=== PATIENT | female | born 1935 | race Caucasian/White ===

== ENCOUNTER → 2017-06-27 | Outpatient (CLI) | payer MEDICARE, OTHER ==
[~2017-06-27] MED LIST: ACE325 PO; CALC-734 PO; DIG25 PO; DIGO125T73 PO; FLU45SYR17 IM; FOL1 PO; FOLI-68 PO; FURO-1 PO; FURO-47 PO; HYDR-3104 PO; HYDR12.561 PO; LEV112 PO; LEVO50TA80 PO; LEVO750T44 PO; LISI-357 PO; LOR5/325 PO; LOSA-31 PO; METF-410 PO; METH-541 PO; METH2.5T43 PO; PNEU0.5D3 IM; POLY10DR22 OP; SPIR25TA78 PO; SPIR50TA30 PO; THYROID MED; VIT-7 PO; WAR1 PO; WARF1TAB63 PO; WARF2.5T4 PO; ZOST19404 SQ
[2017-06-27 12:19] LABS: LDL CHOLESTEROL 77 mg/dl
== END ==
LOC: LAB 11:24
PROVIDERS: ATTEND Internal Medicine
DX: E03.9 Hypothyroidism, unspecified (principal); R73.09 Other abnormal glucose; M06.9 Rheumatoid arthritis, unspecified; I48.91 Unspecified atrial fibrillation; Z79.899 Other long term (current) drug therapy; E11.9 Type 2 diabetes mellitus without complications
CPT/HCPCS: 36415; 80162; 82040; 82247; 82310; 82374; 82435; 82465; 82565; 82947; 83036; 83718; 84075; 84132; 84155; 84295; 84443; 84450; 84460; 84478; 84520

== ENCOUNTER → 2017-10-24 | Outpatient (CLI) | payer MEDICARE, OTHER ==
[~2017-10-24] MED LIST changes: -METF-410 PO; +METF-411 PO; +WARF1TAB15 PO; -WARF1TAB63 PO
== END ==
LOC: LAB 13:58
PROVIDERS: ATTEND Internal Medicine
DX: E03.9 Hypothyroidism, unspecified (principal); G47.62 Sleep related leg cramps; E11.9 Type 2 diabetes mellitus without complications
CPT/HCPCS: 36415; 82040; 82247; 82310; 82374; 82435; 82465; 82565; 82947; 83036; 83718; 83735; 84075; 84132; 84155; 84295; 84443; 84450; 84460; 84478; 84520

== ENCOUNTER → 2018-02-07 | Outpatient (CLI) | payer MEDICARE, OTHER ==
[~2018-02-07] MED LIST changes: +LEVO-3 PO; -SPIR25TA78 PO; +SPIR25TA80 PO
[2018-02-07 12:14] LABS: PLATELET COUNT, AUTOMATED 274 K/uL (150-450)
--- NOTE | 2018-02-07 14:49 | RADIOLOGY IMAGING REPORT ---
[place] [facility] [place] Kinsey Hwang : 1935 MR: [id number] V: [id number] EXAM DATE: ORDERING PHYSICIAN: KACIE MENDES TECHNOLOGIST: Location: [facility] [place] Patient: Kinsey Hwang : 1935 Visit/Account:[id number] Date of Sevice: 02/07/2018 FOOT 3 VIEW LEFT COMPARISONS: None. ADDITIONAL PERTINENT HISTORY: Foot wound FINDINGS: Osseous structures: Subchondral sclerosis and osteophyte formation at the metatarsophalangeal joints. 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 Moderately severe hallux valgus deformity. No bony fractures or lytic changes noted. Joint spaces: Joint space narrowing involving the MTP joints as well as the interphalangeal joint of the left great toe. Surrounding soft tissues: Negative. IMPRESSION: 1. 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 2. 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 3. Moderate hallux valgus deformity. 4. No lytic changes to suggest osteomyelitis at this time. Report Dictated By: Eliot Solorio MD at 02/07/2018 2:42 PM Report E-Signed By: Eliot Solorio MD at 02/07/2018 2:44 PM WSN:[email or web address]
== END ==
LOC: LAB 11:50
PROVIDERS: ATTEND Internal Medicine
DX: M19.072 Primary osteoarthritis, left ankle and foot (principal); Z89.422 Acquired absence of other left toe(s)
CPT/HCPCS: 36415; 85025; 85651; 86140; 87070

== ENCOUNTER → 2018-03-01 | Outpatient (REF) | payer MEDICARE ==
[~2018-03-01] MED LIST changes: +AMOX-559 PO; +LEVO500T83 PO; -METF-411 PO; +METF-450 PO; +METR-160 PO
== END ==
LOC: ZZSENDIN 16:31
PROVIDERS: ATTEND Internal Medicine
DX: S91.302D Unspecified open wound, left foot, subsequent encounter (principal); E03.9 Hypothyroidism, unspecified; E11.9 Type 2 diabetes mellitus without complications; Z79.899 Other long term (current) drug therapy
CPT/HCPCS: 80162; 82040; 82247; 82310; 82374; 82435; 82565; 82947; 83036; 84075; 84132; 84155; 84295; 84443; 84450; 84460; 84520

== ENCOUNTER → 2018-04-02 | Outpatient (CLI) | payer MEDICARE, OTHER ==
[~2018-04-02] MED LIST changes: +FLU180SY11 IM; +LEVO88TA43 PO
== END ==
LOC: LAB 14:33
PROVIDERS: ATTEND Internal Medicine
DX: S91.302D Unspecified open wound, left foot, subsequent encounter (principal)
CPT/HCPCS: 87070; 87073

== ENCOUNTER 2018-06-07 19:37 | Inpatient (IN) | payer MEDICARE, OTHER ==
[~2018-06-07] VITALS: Ht 152.4 cm; Wt 55.8 kg
[~2018-06-07 19:37] MED LIST changes: +CLIN300C99 PO; -METR-160 PO; +METR500T54 PO
[2018-06-07 19:45] VITALS: BP 108/50
[2018-06-07] MEDS ORDERED: INSULIN HUM LISPRO 100 UN/ML 3 ML VIAL SUBQ PRN (19:50)
[2018-06-07 20:29] LABS: PLATELET COUNT, AUTOMATED 165 K/uL (150-450)
[2018-06-07] MEDS: NS(*) 0.9% 1000 ML BAG 1,000 ML IV PRN (20:42)
[2018-06-07] MEDS: IMIPENEM/CILASTA(*) 500MG VIAL 500 MG in NS(*) 0.9% 100 ML BAG 100 ML IVPB SCH (20:44)
[2018-06-07] MEDS: guaiFENesin 600 MG TABCR PO SCH (20:48)
[2018-06-07] MEDS ORDERED: ENOXAPARIN 40 MG/0.4ML SYR SC SCH (21:00)
--- NOTE | 2018-06-07 22:12 | History & Physical ---
History of Present Illness Chief Complaint Chest congestion, increased work of breathing. History of Present Illness The patient is an 82 year old female who was initially evaluated on the medical floor with infection of a chronic foot wound. She was started on wound care and IV Vancomycin and transferred to [facility] for ongoing antibiotics and rehabilitation. The patient developed some chest congestion but did not have an elevated WBC or increased O2 requirements initially. She was placed on flutter therapy and Mucinex. She then developed fever and increase work of breathing. A CXR showed LLL pneumonia with pleural effusion. She was transferred back to the medical floor for close monitoring and treatment of acute hospital acquired pneumonia. The patient has a living will, but it does not address an acute illness, only a terminal illness as determined by 2 physicians. Per the patient's verbal report, she does not want to be resuscitated if she should have cardiac arrest and does not want to be intubated. Her daughter is her POA. History Problems: (1) Acquired hypothyroidism Status: Chronic (2) Nocturnal leg cramps Status: Chronic (3) Unintentional weight loss Status: Chronic (4) Type 2 diabetes mellitus without complications Status: Chronic (5) Atrial fibrillation, controlled Status: Chronic (6) Rheumatoid arthritis Status: Chronic (7) Neuropathy, idiopathic Status: Chronic (8) Primary pulmonary hypertension Status: Chronic (9) Mitral valve replaced Status: Chronic (10) FPC (current) use of anticoagulants Status: Acute (11) Open wound of left foot excluding toes without complication Status: Chronic Home Meds Active Scripts Warfarin Sodium (WARFARIN SODIUM) 1 Mg Tablet, 1.5 MG PO QDAY, #45 TAB 11 Refills Prov:KACIE MENDES MD 05/01/18 Spironolactone (SPIRONOLACTONE) 25 Mg Tablet, 1 TAB PO QDAY, #90 TAB 3 Refills Prov:KACIE MENDES MD 05/01/18 Levothyroxine Sodium (SYNTHROID) 88 Mcg Tablet, 1 TAB PO QDAY, #45 TAB 3 Refills Prov:KACIE MENDES MD 04/04/18 Methotrexate Sodium (METHOTREXATE) 2.5 Mg Tablet, 3 TAB PO QWEEK, #12 TAB 6 Refills Prov:KACIE MENDES MD 01/28/18 Furosemide (FUROSEMIDE) 40 Mg Tablet, 1 TAB PO QDAY, #90 TAB 4 Refills Prov:KACIE MENDES MD 12/04/17 Digoxin (DIGOXIN) 125 Mcg Tablet, 1 TAB PO DAILY, #90 TAB 3 Refills Prov:KACIE MENDES MD 08/07/17 Metformin Hcl (METFORMIN HCL) 500 Mg Tablet, 1 TAB PO QDAY, #90 TAB 3 Refills Prov:KACIE MENDES MD 08/07/17 Folic Acid (FOLIC ACID) 1 Mg Tablet, 1 MG PO QDAY, #90 TAB 3 Refills Prov:KACIE MENDES MD 08/07/17 Reported Medications Vit A,C & E/Lutein/Minerals (OCUVITE TABLET) 1 Each Tablet, 1 TAB PO BID 02/27/14 Calcium Carbonate/Vitamin D3 (CALCIUM 500 + D TABLET) 1 Each Tablet, 1 TAB PO BID 02/27/14 Allergies: Coded Allergies: Penicillins (Verified Allergy, Severe, hives, 12/28/16) Sulfa (Sulfonamide Antibiotics) (Verified Allergy, Intermediate, rash, 12/28/16) latex (Verified Allergy, Mild, RASH, 12/28/16) strawberry (Unverified Allergy, Unknown, 05/30/18) Patient History: FH: anemia FATHER, , Age:90 FH: diabetes mellitus MOTHER, , Age:91 BROTHER OR SISTER, Age:83 FH: rheumatoid arthritis FATHER, , Age:90 BROTHER OR SISTER (Sister), Age:90 Hx Smoking: No Smoking Status: Never Smoker Exposure to Second Hand Smoke?: No Caffeine Intake: Tea Caffeine/Cups Per Day: 2 Hx Alcohol Use: No Hx Substance Use Disorder: No Social Drug Use: Never Review of Systems All Systems Reviewed/Normal: Yes, Except as Noted Constitutional: Fever, Weight Loss Neurological: Weakness Cardiovascular: No Chest Pain Respiratory: No Shortness of Breath Gastrointestinal: No Nausea, No Vomiting; Other (Decreased appetite.) Musculoskeletal: Pain Exam Vital Signs Vital Signs Date Time Temp Pulse Resp B/P (MAP) Pulse Ox O2 Delivery O2 Flow Rate FiO2 06/07/18 21:45 91 06/07/18 20:58 77 34 Room Air 06/07/18 19:45 98.4 108/50 (69) General Appearance: Alert, Awake, Other (Mild increased work of breathing noted) Neuro: Other (Mildly confused.) Cardiovascular: Regular Rate and Rhythm Respiratory: Other (Rhonchi entire L lung field with scattered wheezes. Rhonchi R lung base with scattered wheezes in right lung.) GI: Abd Soft and Non-Tender Extremities: Other (See below.) Integumentary: Other (Left plantar foot 2nd MTP Lesion/Ulceration, full thickness reported per PT wound care. Currently bandaged and unable to be visualized.) Psych: Appropriate Mood & Affect Medical Decision Making Data Points Result Diagram: 06/07/18201106/07/182011 EKG / Imaging Imaging FACILITY: [facility] PATIENT NAME: Kinsey Hwang : 1935 MR: [id number] V: [id number] EXAM DATE: ORDERING PHYSICIAN: NIKOLAI LOPES TECHNOLOGIST: [place] [facility] [place] Patient: Kinsey Hwang : 1935 Visit/Account:[id number] Date of Sevice: 06/07/2018 Study: CHEST SINGLE AP Indication: Increased work of breathing and respiratory rate Comparison study: 05/29/2018 Findings: Single AP portable view the chest demonstrates presence of a PICC line entering from left upper extremity. The tip of the catheter overlies the right atrium. The patient is status post mitral valve replacement. There is a small left pleural effusion. The cardiac silhouette appears to be enlarged, however this is an AP projection. There is a probable left base infiltrate. There is no evidence of pneumothorax. The right hemithorax is unremarkable. IMPRESSION: Small left pleural effusion. Probable cardiomegaly. Probable left base infiltrate. Report Dictated By: Kevin Mclean at 06/07/2018 6:24 PM Report E-Signed By: Kevin Mclean at 06/07/2018 6:26 PM WSN:[id number] Pre-Admit Course Medical Record Review: Yes Assessment and Plan Problems: (1) Pneumonia Status: Acute Assessment & Plan: The patient developed increased work of breathing. CXR shows L basilar infiltrate with pleural effusion. Will transfer to the medical floor for closer monitoring. The patient's daughter has been notified of the change in status. Need to discuss code status with the patient's daughter since the Living Will does not adequately address her current situation. The patient's daughter is her POA. The patient is currently mildly confused. 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 Dr. Orantes has been following her as an outpatient. Purulent discharge was noted on initial evaluation, and a wound culture is growing MRSA. A plain film was negative for osteomyelitis. Physical therapy is providing wound care. She was initially started on vancomycin and levofloxacin, but is now just on vancomycin. Will continue for total 14 days therapy. She received her first dose of Vanco on 05/30. She will need to continue Vanco THROUGH June 12, 2018. (3) ARF (acute renal failure) Status: Acute Assessment & Plan: She presented with weakness and falls. Her creatinine was elevated to 2.0 from her baseline of 1.2-1.5. Secondary to dehydration that was exacerbated by furosemide and spironolactone. Her creatinine has improved to 1.1. Will continue to hold her diuretics. (4) Weakness Status: Acute Assessment & Plan: She has had more falls at home. She has lost about 5 pounds in the last 12 days prior to admission. Prealbumin low at 16.7. OT/PT are following the patient. Will continue on SHANNAN to ensure adequate calorie intake. Once recovered from her acute illness, she will likely need to be transferred ba to [facility] for ongoing acute rehab. (5) Hematoma Status: Acute Assessment & Plan: She does have a large hematoma on the left outer thigh. Her Hgb dropped after admission. She was transfused and her Hgb improved to 9.1 but has gradually decreased down to 8.1. She is on Coumadin with a subtherapeutic INR so is getting full dose Lovenox as well. There is no evidence of active bleeding but her most recent CBC shows 3% blasts which is new. VS have been stable. Will repeat CBC in the am. (6) Atrial fibrillation, controlled Status: Chronic Assessment & Plan: She was on chronic treatment with digoxin and warfarin. The digoxin was held secondary to bradycardia (HR in the 30's while sleeping) and concerns that it might be contributing to her falls. Her rate is controlled off the digoxin and she is no longer having the bradycardia. Will not restart. Her INR was elevated at admission. Her warfarin was placed on hold. She did not receive reversal agents. INR then fell below target. She is now on Lovenox and back on Coumadin. (7) Mitral valve replaced Status: Chronic Assessment & Plan: INR goal of 2.5-3.5. She is currently subtherapeutic, so will continue Lovenox at full dosing until her INR is 2.5 or greater. Warfarin was initially started at a lower dose because of concerns of interactions with Levofloxacin then resumed regular dosing when levofloxacin discontinued. She did present with a supratherapeutic INR so will need to watch her INR closely and adjust her dose as needed. She has also gradually dropped her hemoglobin so will need to watch closely for signs of bleeding. (8) Type 2 diabetes mellitus without complications Status: Chronic Assessment & Plan: Metformin held secondary to ARF and normal BS. She is currently on diet as tolerated secondary to the weight loss. AC and HS glucose. So far, she has not required insulin dosing per SS due to low sugars. Will continue to hold metformin. (9) Rheumatoid arthritis Status: Chronic Assessment & Plan: She is chronically on methotrexate, which we will hold for now due to active infection. (10) Acquired hypothyroidism Status: Chronic Assessment & Plan: TSH was low at 0.03 on 03/01/18. TSH is 0.88 now. Continue chronic replacement for now. (11) Neuropathy, idiopathic Status: Chronic Assessment & Plan: Chronic. Time Spent on Plan of Care: < 30 min Venous Thromboembolism Antithrombotics Is Pt On Any Antithrombotics?: Yes Exam Sepsis Risk: No Definite Risk NIKOLAI LOPES MD Jun 07, 2018 22:12
[2018-06-07 22:50] VITALS: BP 101/60
[2018-06-08] VITALS (9 sets, daily range): BP systolic 102–123; BP diastolic 50–92; Ht 152.4 cm; Wt 55.8 kg
[2018-06-08] MEDS: IMIPENEM/CILASTA(*) 500MG VIAL 500 MG in NS(*) 0.9% 100 ML BAG 100 ML IVPB SCH ×4 (02:02→20:31)
[2018-06-08] MEDS: LEVOTHYROXINE SOD 0.088 MG TAB PO SCH (06:16)
[2018-06-08 06:46] LABS: PLATELET COUNT, AUTOMATED 90 K/uL (150-450)
[2018-06-08 07:04] LABS: INR 2.69
[2018-06-08] MEDS ORDERED: ALTEPLASE RECOMB 2 MG VIAL IVP ONE (07:40)
[2018-06-08] MEDS: VANCOMYCIN HCL(*) 0.750 GM ADD 0.75 GM in NS(*) 0.9% 250 ML ADDVAN BAG 250 ML IVPB SCH (08:06)
[2018-06-08] MEDS: NS(*) 0.9% 1000 ML BAG 1,000 ML IV PRN ×2 (08:06→21:19)
[2018-06-08] MEDS: guaiFENesin 600 MG TABCR PO SCH ×2 (08:10→20:30)
[2018-06-08] MEDS: FOLIC ACID 1 MG TAB PO SCH (08:10)
[2018-06-08] MEDS: BETA-CAROTENE(A) & E/MIN TAB PO SCH (08:11)
--- NOTE | 2018-06-08 10:17 | Hospitalist Progress Note ---
Subjective Progress Notes Subjective She reports some slight improvements with less cough and dyspnea. Physical Exam Vital Signs Date Time Temp Pulse Resp B/P (MAP) Pulse Ox O2 Delivery O2 Flow Rate FiO2 06/08/18 08:10 98.7 24 98 Room Air 06/08/18 03:20 89 Intake and Output0 06/08/18 07:00 Intake Total 300 ml Balance 300 ml Intake Oral 300 ml # Bowel Movements 1 General Appearance: Alert, Awake Cardiovascular: Other (Fairly regular with valve click) Respiratory: Other (scattered rhonchi with rales at bases left>right) Chest: No Tenderness GI: Soft and Non-Tender Musculoskeletal: Other (dramatic rheumatoid changes in hands/less in feet) Extremities: Warm, Perfused Integumentary: Generalized Fragile Skin, Other (foot wound dressed with minimal drainage/no erythema noted) Result Diagram: 06/08/1861206/08/18612 Assessment and Plan Problems: (1) Pneumonia Status: Acute Assessment & Plan: The patient developed increased work of breathing and CXR showed left basilar infiltrate with pleural effusion. She is now on IV Primaxin for her pneumonia in addition to the vancomycin for her foot. She appears to have improved clinically. No changes at this time. 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 Dr. Orantes has been following her as an outpatient. Purulent discharge was noted on initial evaluation, and a wound culture has grown MRSA. A plain film was negative for osteomyelitis. Physical therapy is providing wound care. She was initially started on vancomycin and levofloxacin, but is now just on vancomycin. Will continue for total 14 days therapy. She received her first dose of vancomycin on 05/30. She will need to continue THROUGH June 12, 2018. (3) ARF (acute renal failure) Status: Acute Assessment & Plan: She presented with weakness and falls. Her creatinine was elevated to 2.0 from her baseline of 1.2-1.5. Secondary to dehydration that was exacerbated by furosemide and spironolactone. Her creatinine has improved to 1 .0. Will continue to hold her diuretics. (4) Weakness Status: Acute Assessment & Plan: She has had more falls at home. She had lost about 5 pounds in the last 12 days prior to admission. Prealbumin low at 16.7. OT/PT are following the patient. Will continue on SHANNAN to ensure adequate calorie intake. Once recovered from her acute illness, she will likely need to be transferred back to [facility] for ongoing acute rehab. (5) Hematoma Status: Acute Assessment & Plan: She did have a large hematoma on the left outer thigh. Her Hgb/Hct dropped after admission. She was transfused and her Hgb improved to 9.1 but has gradually decreased down once again to 7.8. She is on anticoagulation therapy with Coumadin/Lovenox, but no evidence of overt bleeding. She does have chronic RA. One of her most recent CBC showed 3% blasts which is new. Will check iron studies and occult blood. Will transfuse 2 units PRBC as she has fairly significant cardiac disease. Watch counts closely. (6) Atrial fibrillation, controlled Status: Chronic Assessment & Plan: She was on chronic treatment with digoxin and warfarin. The digoxin was held secondary to bradycardia (HR in the 30's while sleeping) and concerns that it might be contributing to her falls. Her rate is controlled off the digoxin and she is no longer having the bradycardia. Will not restart. Her INR was elevated at admission. Her warfarin was placed on hold. She did not receive reversal agents. INR then fell below target. She was on Lovenox and along with Coumadin until INR was therapeutic - now off Lovenox. (7) Mitral valve replaced Status: Chronic Assessment & Plan: INR goal of 2.5-3.5. She is now therapeutic, so will discontinue Lovenox. Warfarin was initially started at a lower dose because of concerns of interactions with Levofloxacin then resumed regular dosing when levofloxacin discontinued. She did present with a supra-therapeutic INR so will need to watch her INR closely and adjust her dose as needed. She has also gradually dropped her hemoglobin so will need to watch closely for signs of bleeding. (8) Type 2 diabetes mellitus without complications Status: Chronic Assessment & Plan: Metformin held secondary to ARF and normal BS. She is currently on diet as tolerated secondary to the weight loss. AC and HS glucose. So far, she has not required insulin dosing per sliding scale. Will continue to hold metformin. (9) Rheumatoid arthritis Status: Chronic Assessment & Plan: She is chronically on methotrexate, which we will hold for now due to active infection. (10) Acquired hypothyroidism Status: Chronic Assessment & Plan: TSH was low at 0.03 on 03/01/18. TSH is 0.88 now. Continue chronic replacement for now. (11) Neuropathy, idiopathic Status: Chronic Assessment & Plan: Chronic. Exam Sepsis Risk: No Definite Risk ERVIN LOPES MD Jun 08, 2018 10:17
[2018-06-08] MEDS ORDERED: NS(*) 0.9% 250 ML BAG 250 ML ONE (11:54)
[2018-06-08] MEDS: WARFARIN SOD 2.5 MG TAB PO SCH (12:17)
[2018-06-08] MEDS: CALCIUM CARBONATE/VITAMIN D3 PO SCH ×2 (12:17→16:53)
[2018-06-08] MEDS: ACETAMINOPHEN 325 MG TAB PO PRN (12:26)
[2018-06-08] MEDS ORDERED: clonazePAM 0.5 MG TAB PO PRN (13:15)
[2018-06-08] MEDS ORDERED: PROMETHAZINE 25 MG/ML 1 ML AMP IVP PRN (13:15)
--- NOTE | 2018-06-08 15:31 | Medical Nutrition Therapy ---
Nutrition Anthropometrics Height (Inches): 60.00 Height (Calculated Centimeters: 152.371560 Weight (Pounds): 115 Weight (Calculated Kilograms): 52.220 BMI: 22.5 Jackson Nutrition Score: Probably Inadequate Jackson Nutrition Risk Score: 16 Dietary Referral Nutrition Risk Factors: Unplanned Loss >10lbs Nutrition Risk Comment: States weighed 118# before this hospitalization Physical Findings Physical Appearance: WNR Skin Appearance Skin Appearance: Edema Edema Location Modifier: Left Edema Location: Lower Extremity Type of Edema: Degree of Edema: Gastrointestinal Symptoms GI Symtoms: Tube Present: Bowel Sounds: Recent Bowel Pattern: Stool Characteristics: Nutrition/Food History Decreased Appetite Nutritional Diagnosis Nutritional Risk Acuity 1: Acute/ES Renal Nutritional Risk Acuity 2: Abcess/Non-Healing Wound Nutritional Risk Acuity 3: Fair Appetite Past Medical History: T2DM, RA, CHF, Neuropathy Nutritional Acuity: 2-Moderate Nutrition Diagnosis: Increased Nutrient Needs Nutrition Etiology: Physiological Causes Nutrition Problem/Etiology/Sym: Increased Nutrient Needs (Protein) related to Increased demand for nutrient, e.g., wound healing AEB low albumin status indicating increased stress and increased metabolic needs. Energy Requirement: 1550 (Summers-St Jeor: Actual BW X 1.7) Protein Requirement: 63 (Actual BW Kg X 1.2) Fluid Requirement: 1550 Diet Type: Diet as Tolerated SHANNAN/REG Nutrition Intervention: Cont diet as ordered, Check glucose Drug: Warfarin Do Not Serve Any of the Follow: Broccoli, Brussel Sprouts, Spinach, Rule Lettuce, Cranberry Juice Diet Comment To RSA: OFFER NUTITIONAL SUPPLEMENTS AND ADD PROTEIN POWDER TO APPROPRIATE FOODS Nutrition Monitoring & Eval Nutrition Goals: Eat 75-100% Meal RD Patient Assessment Time: [address] Assessment Type: RD Assessment Patient Nutrition Acuity: 2-Moderate Follow Up Date: Jun 10, 2018 Nutritional Comment: 06/08/18 Pt transferred from [facility] to [facility] for pneumonia with pleural effusion. Within normal wt range with BMI of 22.5. Low H/H, Alb 2.5, Glu 140, Fe 19, Low Na, High BUN. Pt also has incrased protein needs r/t non-healing wound with low alb. Will offer nutr supplment and put protein powder in appropriate foods. Receiving SHANNAN with consumption of bites - 50% of meals. Will follow labs, intake, etc. -ISAIAH BECK Jun 08, 2018 15:31
[2018-06-09] MEDS: ALBUTEROL 2.5 MG/3 ML NEB NEB PRN (00:46)
[2018-06-09] MEDS: IMIPENEM/CILASTA(*) 500MG VIAL 500 MG in NS(*) 0.9% 100 ML BAG 100 ML IVPB SCH ×4 (02:28→20:19)
[2018-06-09 03:05] VITALS: BP 122/73
[2018-06-09] MEDS: LEVOTHYROXINE SOD 0.088 MG TAB PO SCH (05:32)
[2018-06-09 06:02] LABS: PLATELET COUNT, AUTOMATED 161 K/uL (150-450)
[2018-06-09 06:04] LABS: INR 3.03
[2018-06-09] MEDS: VANCOMYCIN HCL(*) 0.750 GM ADD 0.75 GM in NS(*) 0.9% 250 ML ADDVAN BAG 250 ML IVPB SCH (06:21)
[2018-06-09 09:16] VITALS: BP 114/56
[2018-06-09] MEDS: FOLIC ACID 1 MG TAB PO SCH (09:21)
[2018-06-09] MEDS: BETA-CAROTENE(A) & E/MIN TAB PO SCH (09:21)
[2018-06-09] MEDS: guaiFENesin 600 MG TABCR PO SCH ×2 (09:21→20:18)
[2018-06-09] MEDS: ACETAMINOPHEN 325 MG TAB PO PRN (09:24)
--- NOTE | 2018-06-09 09:29 | Hospitalist Progress Note ---
Subjective Progress Notes Subjective This patient was readmitted for extended care for pneumonia. She had no acute events overnight. Patient Complains of: Cardiovascular: No: Chest Pain Respiratory: No: Shortness of Breath Physical Exam Vital Signs Date Time Temp Pulse Resp B/P (MAP) Pulse Ox O2 Delivery O2 Flow Rate FiO2 06/09/18 09:16 98.3 83 24 114/56 (75) 93 Room Air Intake and Output 06/09/18 06:59 Intake Total 3660 ml Balance 3660 ml Intake Oral 1110 ml IV Total 1550 ml Blood Product 1000 ml # Voids 7 # Bowel Movements 5 # Emeses 1 Cardiovascular: Regular Rate and Rhythm Respiratory: Clear to Auscultation Result Diagram: 06/09/1853006/09/18530 Assessment and Plan Problems: (1) Pneumonia Status: Acute Assessment & Plan: She did have increased congestion and shortness of breath. Her x-ray suggested a left sided infiltrate. She was started on empiric treatment with Primaxin. Cultures have been negative. 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 Dr. Orantes has been following her as an outpatient. Purulent discharge was noted on initial evaluation, and a wound culture has grown MRSA. A plain film was negative for osteomyelitis. Physical therapy is providing wound care. She was initially started on vancomycin and levofloxacin, but is now just on vancomycin. Will continue for total 14 days therapy. She received her first dose of vancomycin on 05/30. She will need to continue THROUGH June 12, 2018. (3) ARF (acute renal failure) Status: Acute Assessment & Plan: She presented with weakness and falls. Her creatinine was elevated to 2.0 from her baseline of 1.2-1.5. Secondary to dehydration that was exacerbated by furosemide and spironolactone. Her creatinine has improved to 1.0. Her diuretics remain on hold. (4) Weakness Status: Acute Assessment & Plan: She has had more falls at home. She had lost about 5 pounds in the last 12 days prior to admission. Prealbumin low at 16.7. OT/PT are following the patient. Will continue on SHANNAN to ensure adequate calorie intake. Once recovered from her acute illness, she will likely need to be transferred back to [facility] for ongoing acute rehab. (5) Hematoma Status: Acute Assessment & Plan: She did have a large hematoma on the left outer thigh. Her Hgb/Hct dropped after admission. She was transfused and her Hgb improved to 9.1 but has gradually decreased down once again to 7.8. She is on anticoagulation therapy with Coumadin/Lovenox, but no evidence of overt bleeding. She does have chronic RA. One of her most recent CBC showed 3% blasts which is new. (6) Atrial fibrillation, controlled Status: Chronic Assessment & Plan: She was on chronic treatment with digoxin and warfarin. The digoxin was held secondary to bradycardia (HR in the 30's while sleeping) and concerns that it might be contributing to her falls. Her rate is controlled off the digoxin and she is no longer having the bradycardia. Will not restart. Her INR was elevated at admission. Her warfarin was placed on hold. She did not receive reversal agents. INR then fell below target. She was on Lovenox and along with Coumadin until INR was therapeutic - now off Lovenox. (7) Mitral valve replaced Status: Chronic Assessment & Plan: INR goal of 2.5-3.5. She is now therapeutic, so will discontinue Lovenox. Warfarin was initially started at a lower dose because of concerns of interactions with Levofloxacin then resumed regular dosing when levofloxacin discontinued. She did present with a supra-therapeutic INR so will need to watch her INR closely and adjust her dose as needed. She has also gradually dropped her hemoglobin so will need to watch closely for signs of bleeding. (8) Type 2 diabetes mellitus without complications Status: Chronic Assessment & Plan: Metformin held secondary to ARF and normal BS. She is currently on diet as tolerated secondary to the weight loss. AC and HS glucose. So far, she has not required insulin dosing per sliding scale. Will continue to hold metformin. (9) Rheumatoid arthritis Status: Chronic Assessment & Plan: She is chronically on methotrexate, which we will hold for now due to active infection. (10) Acquired hypothyroidism Status: Chronic Assessment & Plan: TSH was low at 0.03 on 03/01/18. TSH is 0.88 now. Continue chronic replacement for now. (11) Neuropathy, idiopathic Status: Chronic Assessment & Plan: Chronic. (12) Anemia Assessment & Plan: She did receive 2 units of red cells yesterday. Exam Sepsis Risk: No Definite Risk Problem Qualifiers (1) Pneumonia: Pneumonia type: due to unspecified organism HUBERT,AURORA DO Jun 09, 2018 09:29
[2018-06-09] MEDS: BENZOCAINE/MENTHOL 1 EACH LOZG PO PRN ×3 (10:54→20:18)
[2018-06-09] MEDS: CALCIUM CARBONATE/VITAMIN D3 PO SCH ×2 (12:20→17:14)
[2018-06-09] MEDS: WARFARIN SOD 2.5 MG TAB PO SCH (12:21)
--- NOTE | 2018-06-09 13:05 | Antimicrobial Stewardship ---
Antimicrobial Stewardship Empiricly appropriate: Yes Comment Patient continues on Vancomycin 750 mg IV q24h for MRSA wound on foot. Primaxin 500 mg IV q6h added on 06/07/18 for pneumonia. Approriate Cultures done: Yes (No growth to date on blood cultures drawn 06/07/18. Wound had previously grown MRSA.) Renal/Hepatic dosing: Yes Serum concentration checked: Yes Comment Vancomycin Troughs have been consistently around 15-16 for the last few days. The next TR is due tomorrow at 0600. Reviewed for Drug Interaction: Yes Monitored for Toxicities: Yes Clinically stable/improving: Yes IV to PO Opportunity: No Determine cumulative duration: 7 days for pneumonia and 14 total days for MRSA wound infection DONNA SHEN Jun 09, 2018 13:05
[2018-06-09 14:29] VITALS: BP 131/86
--- NOTE | 2018-06-09 18:44 | RADIOLOGY IMAGING REPORT ---
FACILITY: [facility] [place] PATIENT NAME: Kinsey Hwang : 1935 MR: [id number] V: [id number] EXAM DATE: ORDERING PHYSICIAN: AURORA GASPAR TECHNOLOGIST: Location: [facility] [place] Patient: Kinsey Hwang : 1935 Visit/Account:[id number] Date of Sevice: 06/09/2018 KUB SINGLE VIEW ABDOMEN HISTORY: Distended, firm abdomen COMPARISON: None FINDINGS: Lower chest: Not covered Abdomen: No free intraperitoneal air. Nonobstructive bowel gas pattern. There are no abnormal calcif ications. Bony structures are unremarkable. IMPRESSION: 1. Nonobstructive bowel gas pattern. Report Dictated By: Justo Joyce MD at 06/09/2018 6:39 PM Report E-Signed By: Justo Joyce MD at 06/09/2018 6:41 PM WSN:[id number]
[2018-06-09 19:42] VITALS: BP 125/74
[2018-06-10] MEDS: ALBUTEROL 2.5 MG/3 ML NEB NEB PRN (01:27)
[2018-06-10] MEDS: IMIPENEM/CILASTA(*) 500MG VIAL 500 MG in NS(*) 0.9% 100 ML BAG 100 ML IVPB SCH ×4 (01:31→20:51)
[2018-06-10] MEDS ORDERED: NS(*) 0.9% 250 ML BAG 250 ML ONE (01:31)
[2018-06-10] MEDS: BENZOCAINE/MENTHOL 1 EACH LOZG PO PRN (01:35)
[2018-06-10 01:36] VITALS: BP 148/83
[2018-06-10] MEDS: LEVOTHYROXINE SOD 0.088 MG TAB PO SCH (06:05)
[2018-06-10 06:19] LABS: INR 4.49
[2018-06-10] MEDS: VANCOMYCIN HCL(*) 0.750 GM ADD 0.75 GM in NS(*) 0.9% 250 ML ADDVAN BAG 250 ML IVPB SCH (07:14)
[2018-06-10 08:02] VITALS: BP 116/74
[2018-06-10] MEDS: guaiFENesin 600 MG TABCR PO SCH ×2 (08:48→20:51)
[2018-06-10] MEDS: BETA-CAROTENE(A) & E/MIN TAB PO SCH (08:49)
[2018-06-10] MEDS: FOLIC ACID 1 MG TAB PO SCH (08:49)
--- NOTE | 2018-06-10 09:50 | RADIOLOGY IMAGING REPORT ---
FACILITY: [facility] PATIENT NAME: Kinsey Hwang : 1935 MR: [id number] V: [id number] EXAM DATE: ORDERING PHYSICIAN: NIKOLAI LOPES TECHNOLOGIST: Location: [facility] Patient: Kinsey Hwang : 1935 Visit/Account:[id number] Date of Sevice: 06/10/2018 CHEST SINGLE AP HISTORY: pneumonia COMPARISON: 06/07/2018 FINDINGS: Cardiomediastinal contours: Enlarged but unchanged. Median sternotomy with valve replacement. Lungs and pleura: Decreasing distention the pulmonary vascularity. Stable left basilar pleural-parenc hymal opacities. No pneumothorax. Bones/soft tissues: Left arm PICC with its tip at the distal SVC. Other findings: None significant IMPRESSION: 1. Cardiomegaly with decreasing distention the pulmonary vascularity. 2. Stable left basilar pleural-parenchymal opacities which may be pleural fluid with adjacent infiltr ate or atelectasis. Recommend continued radiographic surveillance to resolution. Report Dictated By: Justo Joyce MD at 06/10/2018 9:42 AM Report E-Signed By: Justo Joyce MD at 06/10/2018 9:46 AM WSN:[email or web address]
--- NOTE | 2018-06-10 10:34 | Hospitalist Progress Note ---
Subjective Progress Notes Subjective Denied new complaints. Denied feeling short of breath. Physical Exam Vital Signs Date Time Temp Pulse Resp B/P (MAP) Pulse Ox O2 Delivery O2 Flow Rate FiO2 06/10/18 08:02 98.6 85 18 116/74 (88) 89 Room Air Intake and Output 06/10/18 06:59 Intake Total 2185 ml Balance 2185 ml Intake Oral 660 ml IV Total 1525 ml # Voids 6 # Bowel Movements 4 # Emeses 1 General Appearance: Alert, Awake, No Acute Distress, Afebrile Neuro: No Gross deficits Cardiovascular: Regular Rate and Rhythm (With occasional ectopy.) Respiratory: No Respiratory Distress, Other (Scattered rhonchi. L>R) GI: Soft and Non-Tender Extremities: Warm, Perfused Integumentary: Other (R foot bandaged.) Psych: Alert & Oriented X3, Appropriate Mood & Affect Result Diagram: 06/09/1853006/09/18530 Imaging FACILITY: [facility] PATIENT NAME: Kinsey Hwang : 1935 MR: [id number] V: [id number] EXAM DATE: ORDERING PHYSICIAN: NIKOLAI LOPES TECHNOLOGIST: Location: [facility] - [place] Patient: Kinsey Hwang : 1935 Visit/Account:[id number] Date of Sevice: 06/10/2018 CHEST SINGLE AP HISTORY: pneumonia COMPARISON: 06/07/2018 FINDINGS: Cardiomediastinal contours: Enlarged but unchanged. Median sternotomy with valve replacement. Lungs and pleura: Decreasing distention the pulmonary vascularity. Stable left basilar pleural-parenchymal opacities. No pneumothorax. Bones/soft tissues: Left arm PICC with its tip at the distal SVC. Other findings: None significant IMPRESSION: 1. Cardiomegaly with decreasing distention the pulmonary vascularity. 2. Stable left basilar pleural-parenchymal opacities which may be pleural fluid with adjacent infiltrate or atelectasis. Recommend continued radiographic surveillance to resolution. Report Dictated By: Justo Joyce MD at 06/10/2018 9:42 AM Report E-Signed By: Justo Joyce MD at 06/10/2018 9:46 AM WSN:[email or web address] Assessment and Plan Problems: (1) Pneumonia Status: Acute Assessment & Plan: She did have increased congestion and shortness of breath. Her x-ray suggested a left sided infiltrate with associated pleural effusion. She was started on empiric treatment with Primaxin. Cultures have been negative. Repeat CXR today is essentially unchanged. Clinically she is improved. 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 Dr. Orantes has been following her as an outpatient. Purulent discharge was noted on initial evaluation, and a wound culture has grown MRSA. A plain film was negative for osteomyelitis. Physical therapy is providing wound care. She was initially started on vancomycin and levofloxacin, but is now just on vancomycin. Will continue for total 14 days therapy. She received her first dose of vancomycin on 05/30. She will need to continue THROUGH June 12, 2018. (3) ARF (acute renal failure) Status: Acute Assessment & Plan: She presented with weakness and falls. Her creatinine was elevated to 2.0 from her baseline of 1.2-1.5. Secondary to dehydration that was exacerbated by furosemide and spironolactone. Her creatinine has improved to 1.0. She has developed increased LE edema. Will restart spironolactone only. (4) Weakness Status: Acute Assessment & Plan: She has had more falls at home. She had lost about 5 pounds in the last 12 days prior to admission. Prealbumin low at 16.7. OT/PT are following the patient. Will continue on SHANNAN to ensure adequate calorie intake. Once recovered from her acute illness, she will likely need to be transferred back to [facility] for ongoing acute rehab. (5) Hematoma Status: Acute Assessment & Plan: She did have a large hematoma on the left outer thigh. Her Hgb/Hct dropped after admission. She was transfused and her Hgb improved to 9.1 but has gradually decreased down once again to 7.8. She is on anticoagulation therapy with Coumadin/Lovenox, but no evidence of overt bleeding. She does have chronic RA. One of her most recent CBC showed 3% blasts which is new. (6) Atrial fibrillation, controlled Status: Chronic Assessment & Plan: She was on chronic treatment with digoxin and warfarin. The digoxin was held secondary to bradycardia (HR in the 30's while sleeping) and concerns that it might be contributing to her falls. Her rate is controlled off the digoxin and she is no longer having the bradycardia. Will not restart. Her INR was elevated at admission. Her warfarin was placed on hold. She did not receive reversal agents. INR then fell below target. She was on Lovenox and along with Coumadin until INR was therapeutic - now off Lovenox. Coumadin is now once again supratherapeutic. Will hold today. Looking back at EMR outpatient visits, her usual dose is 1.5mg daily x 6 days per week and 2mg once per week. She did come in supratherapeutic however. Would recommend restarting at 1.5mg daily once she is back in therapeutic range. (7) Mitral valve replaced Status: Chronic Assessment & Plan: INR goal of 2.5-3.5. She is now therapeutic, so will discontinue Lovenox. Warfarin was initially started at a lower dose because of concerns of interactions with Levofloxacin then resumed regular dosing when levofloxacin discontinued. She did present with a supra-therapeutic INR so will need to watch her INR closely and adjust her dose as needed. She has also gradually dropped her hemoglobin so will need to watch closely for signs of bleeding. (8) Type 2 diabetes mellitus without complications Status: Chronic Assessment & Plan: Metformin held secondary to ARF and normal BS. She is currently on diet as tolerated secondary to the weight loss. AC and HS glucose. So far, she has not required insulin dosing per sliding scale. Will continue to hold metformin. (9) Rheumatoid arthritis Status: Chronic Assessment & Plan: She is chronically on methotrexate, which we will hold for now due to active infection. (10) Acquired hypothyroidism Status: Chronic Assessment & Plan: TSH was low at 0.03 on 03/01/18. TSH is 0.88 now. Continue chronic replacement for now. (11) Neuropathy, idiopathic Status: Chronic Assessment & Plan: Chronic. (12) Anemia Assessment & Plan: Iron studies show a low iron level. Ferritin is pending. B12 level is borderline low. Methylmalonic acid is pending. Stool is positive for occult blood. She did receive 2 units of red cells yesterday. Will monitor closely. Time Spent on Plan of Care: < 30 min Exam Sepsis Risk: No Definite Risk Problem Qualifiers (1) Pneumonia: Pneumonia type: due to unspecified organism NIKOLAI LOPES MD Jun 10, 2018 10:34
[2018-06-10 11:00] VITALS: BP 128/78
[2018-06-10] MEDS: SPIRONOLACTONE 25 MG TAB PO SCH (11:01)
--- NOTE | 2018-06-10 11:01 | Pharmacy Note ---
Vancomycin Management Note Vanco Dosing Note Vanco T = 14.16 on 06/10. Decrease interval to q 18 hours and keep dose the same at 750 mg. Goal T is 15-20. NIKOLAI QUIJANO Jun 10, 2018 11:01
[2018-06-10] MEDS: CALCIUM CARBONATE/VITAMIN D3 PO SCH ×2 (12:16→17:03)
--- NOTE | 2018-06-10 12:52 | Miscellaneous Provider Note ---
Miscellaneous Provider Note Note Called to see patient with LE edema. L leg noticeably more swollen that right. Restarted spironolactone this am due to increased edema. She had also been on Lasix 40mg daily at home but will start one diuretic and monitor. Also patient notes her abdomen is once again distended. Last evening she complained of distention and had vomiting. KUB was done and showed nonobstructive gas pattern. She has been having BMs but these are reportedly small. She ate her entire breakfast without difficulty. She denies nausea currently. On PE, abdomen is distended with very active bowel sounds. No tenderness to palpation. Will monitor. If she continues to have symptoms, consider CT abdomen. NIKOLAI LOPES MD Jun 10, 2018 12:52
--- NOTE | 2018-06-10 13:31 | NUR ---
Physical Therapy Impression PT alexandra complete. Recommend continued short-term subacute rehab prior to discharging to her daughter's home. Physical Therapy Goals 1. SBA bed mobility. 2. SBA transfers. 3. SBA gait x 150' with RW. 4. Ascend/descend stairs appropriate for Pt's daughter's home. Patient's Goals
--- NOTE | 2018-06-10 14:18 | NUR ---
Physical Therapy Impression PT evchelo complete. Recommend continued short-term subacute rehab prior to discharging to her daughter's home. Noted tightly adhered Primapore bandage which was difficult to remove and associated bluish tone to skin under bandage. Skin is blanchable. Dr. Rachael Thomson present to view wound. Wound and surrounding skin cleaned with sterile saline. Noted 100% granulation tissue in wound base, thus, no debridement performed. Wound packed with calcium alginate and dressed with bordered gauze dressing as a gentler option, however, will need to evaluate if dressing stays in place as this was the reason dressing was changed to Primapore previously. Physical Therapy Goals 1. SBA bed mobility. 2. SBA transfers. 3. SBA gait x 150' with RW. 4. Ascend/descend stairs appropriate for Pt's daughter's home. Patient's Goals
--- NOTE | 2018-06-10 14:43 | Medical Nutrition Therapy ---
Nutrition Anthropometrics Height (Inches): 60.00 Height (Calculated Centimeters: 152.329046 Weight (Pounds): 115 Weight (Calculated Kilograms): 52.220 BMI: 22.5 Jackson Nutrition Score: Adequate Jackson Nutrition Risk Score: 17 Dietary Referral Nutrition Risk Factors: Unplanned Loss >10lbs Nutrition Risk Comment: States weighed 118# before this hospitalization Physical Findings Physical Appearance: WNR Skin Appearance Skin Appearance: Edema Edema Location Modifier: Left Edema Location: Lower Extremity Type of Edema: Degree of Edema: Gastrointestinal Symptoms GI Symtoms: Tube Present: Bowel Sounds: Recent Bowel Pattern: Stool Characteristics: Nutritional Diagnosis Nutritional Risk Acuity 1: Acute/ES Renal Nutritional Risk Acuity 2: Abcess/Non-Healing Wound Nutritional Risk Acuity 3: Fair Appetite Past Medical History: T2DM, RA, CHF, Neuropathy Nutritional Acuity: 2-Moderate Nutrition Diagnosis: Increased Nutrient Needs Nutrition Etiology: Physiological Causes Nutrition Problem/Etiology/Sym: Increased Nutrient Needs (Protein) related to Increased demand for nutrient, e.g., wound healing AEB low albumin status indicating increased stress and increased metabolic needs. Energy Requirement: 1550 ([place]-St Jeor: Actual BW X 1.7) Protein Requirement: 63 (Actual BW Kg X 1.2) Fluid Requirement: 1550 Diet Type: Diet as Tolerated SHANNAN/REG Nutrition Intervention: Cont diet as ordered, Check glucose Drug: Warfarin Do Not Serve Any of the Follow: Broccoli, Brussel Sprouts, Spinach, [place] Lettuce, Cranberry Juice Diet Comment To RSA: OFFER NUTITIONAL SUPPLEMENTS AND ADD PROTEIN POWDER TO APPROPRIATE FOODS Nutrition Monitoring & Eval Nutrition Goals: Eat 75-100% Meal RD Patient Assessment Time: [address] Assessment Type: RD Re-Assessment Patient Nutrition Acuity: 2-Moderate Follow Up Date: Jun 13, 2018 Nutritional Comment: 06/08/18 Pt transferred from [facility] to [facility] for pneumonia with pleural effusion. Within normal wt range with BMI of 22.5. Low H/H, Alb 2.5, Glu 140, Fe 19, Low Na, High BUN. Pt also has incrased protein needs r/t non-healing wound with low alb. Will offer nutr supplment and put protein powder in appropriate foods. Receiving SHANNAN with consumption of bites - 50% of meals. Will follow labs, intake, etc. -DRT 06/10/18 Alb 2.3, Glu 126, Low Na+. Meal intake varible at 10-100%. Encourage intake, follow labs, etc. -ISAIAH BECK Jun 10, 2018 14:43
--- NOTE | 2018-06-10 15:33 | NUR ---
Occupational Therapy Impression Min A supine to sit. CGA ambulation in room with RW. Mod A toileting. SpO2 WNL on room air. Rec short-term rehab prior to discharge to [facility]. Occupational Therapy Goals 1) Pt will be Min A grooming/hygiene. 2) Pt will be Min A toilet task. 3) Pt will be Min A UB/LB dressing. Patient's Goal
--- NOTE | 2018-06-10 15:52 | RADIOLOGY IMAGING REPORT ---
FACILITY: [facility] [place] PATIENT NAME: Kinsey Hwang : 1935 MR: [id number] V: [id number] EXAM DATE: ORDERING PHYSICIAN: NIKOLAI LOPES TECHNOLOGIST: Location: Patient: Kinsey Hwang : 1935 Visit/Account:[id number] Date of Sevice: 06/10/2018 EXAMINATION: VENOUS DOPP LOW LEFT EXTREMITY COMPARISON: None Available HISTORY: L leg swelling > R FINDINGS: Standard left lower extremity Doppler ultrasound with color flow and spectral analysis is p erformed. The common femoral, femoral, and popliteal veins are widely patent and compress appropriately. The v isualized calf veins and the proximal greater saphenous vein are patent. No popliteal fluid collection. Left lower extremity subcutaneous soft tissue edema. IMPRESSION: No left lower extremity deep venous thrombosis. Report Dictated By: John Marsh MD at 06/10/2018 3:46 PM Report E-Signed By: John Marsh MD at 06/10/2018 3:48 PM WSN:[email or web address]
[2018-06-10 18:13] VITALS: BP 120/66
[2018-06-10 20:12] VITALS: BP 124/62
[2018-06-11] MEDS: VANCOMYCIN HCL(*) 0.750 GM ADD 0.75 GM in NS(*) 0.9% 250 ML ADDVAN BAG 250 ML IVPB SCH ×2 (00:52→19:43)
[2018-06-11] MEDS: IMIPENEM/CILASTA(*) 500MG VIAL 500 MG in NS(*) 0.9% 100 ML BAG 100 ML IVPB SCH ×4 (02:10→20:47)
[2018-06-11 03:45] VITALS: BP 108/68
[2018-06-11] MEDS: LEVOTHYROXINE SOD 0.088 MG TAB PO SCH (05:33)
[2018-06-11] MEDS: BENZOCAINE/MENTHOL 1 EACH LOZG PO PRN (05:33)
[2018-06-11 05:45] LABS: INR 3.39
[2018-06-11 07:59] VITALS: BP 121/68
[2018-06-11] MEDS ORDERED: MAGNESIUM HYDROXIDE* 30ML UDCP PO PRN (08:45)
[2018-06-11] MEDS ORDERED: BISACODYL 10 MG SUPP PR PRN (08:45)
[2018-06-11] MEDS: POLYETHYLENE GLYCOL 17 GM PKT PO SCH (08:55)
[2018-06-11] MEDS: FUROSEMIDE 40 MG TAB PO SCH (08:56)
[2018-06-11] MEDS: SPIRONOLACTONE 25 MG TAB PO SCH (08:56)
[2018-06-11] MEDS: guaiFENesin 600 MG TABCR PO SCH ×2 (08:56→20:47)
[2018-06-11] MEDS: DOCUSATE SODIUM 100 MG CAP PO SCH ×2 (08:56→20:47)
[2018-06-11] MEDS: FOLIC ACID 1 MG TAB PO SCH (08:56)
[2018-06-11] MEDS: BETA-CAROTENE(A) & E/MIN TAB PO SCH (08:56)
--- NOTE | 2018-06-11 09:30 | NUR ---
Physical Therapy Impression Pt up with nursing when PT arrived, reporting abdominal pain and fatigue today. PT assisted nursing and instructed pt in multiple STS transfers to assist with hygiene and toileting, pt completed with CGA. Ambulation x15' with RW, pt required Nawaf to lift LEs into bed d/t abdominal pain. Pt declined further mobility d/t fatigue at this time. Physical Therapy Goals 1. SBA bed mobility. 2. SBA transfers. 3. SBA gait x 150' with RW. 4. Ascend/descend stairs appropriate for Pt's daughter's home. Patient's Goals
--- NOTE | 2018-06-11 10:08 | Hospitalist Progress Note ---
Subjective Progress Notes Subjective This patient was admitted for pneumonia. She has increased lower extremity edema to the abdomen level. Patient Complains of: Cardiovascular: No: Chest Pain Respiratory: No: Shortness of Breath Physical Exam Vital Signs Date Time Temp Pulse Resp B/P (MAP) Pulse Ox O2 Delivery O2 Flow Rate FiO2 06/11/18 07:59 89 Room Air 06/11/18 07:59 98.7 83 22 121/68 (85) 06/10/18 11:02 Intake and Output 06/11/18 07:00 Intake Total 1540 ml Balance 1540 ml Intake Oral 640 ml IV Total 900 ml # Voids 4 # Bowel Movements 3 Cardiovascular: Regular Rate and Rhythm Respiratory: Clear to Auscultation Extremities: Edema Result Diagram: 06/09/1853006/09/18530 Item Value Date Time Prothromb Time International Ratio 3.39 06/11/18 0529 Assessment and Plan Problems: (1) Pneumonia Status: Acute Assessment & Plan: She did have increased congestion and shortness of breath. Her x-ray suggested a left sided infiltrate with associated pleural effusion. She was started on empiric treatment with Primaxin. Cultures have been negative. 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 Dr. Orantes has been following her as an outpatient. Purulent discharge was noted on initial evaluation, and a wound culture has grown MRSA. A plain film was negative for osteomyelitis. Physical therapy is providing wound care. She was initially started on vancomycin and levofloxacin, but is now just on vancomycin. Will continue for total 14 days therapy. She received her first dose of vancomycin on 05/30. She will need to continue THROUGH June 12, 2018. (3) ARF (acute renal failure) Status: Acute Assessment & Plan: She presented with weakness and falls. Her creatinine was elevated to 2.0 from her baseline of 1.2-1.5. Secondary to dehydration that was exacerbated by furosemide and spironolactone. Her creatinine has improved to 1.0. She does have increased edema today. The spironolactone was restarted yesterday and Lasix was added today. Daily weights have also been ordered. (4) Weakness Status: Acute Assessment & Plan: She has had more falls at home. She had lost about 5 pounds in the last 12 days prior to admission. Prealbumin low at 16.7. OT/PT are following the patient. Will continue on SHANNAN to ensure adequate calorie intake. Once recovered from her acute illness, she will likely need to be transferred back to [facility] for ongoing acute rehab. (5) Hematoma Status: Acute Assessment & Plan: She did have a large hematoma on the left outer thigh. Her Hgb/Hct dropped after admission. She was transfused and her Hgb improved to 9.1 but has gradually decreased down once again to 7.8. She is on anticoagulation therapy with Coumadin/Lovenox, but no evidence of overt bleeding. She does have chronic RA. One of her most recent CBC showed 3% blasts which is new. (6) Atrial fibrillation, controlled Status: Chronic Assessment & Plan: She was on chronic treatment with digoxin and warfarin. The digoxin was held secondary to bradycardia (HR in the 30's while sleeping) and concerns that it might be contributing to her falls. Her rate is controlled off the digoxin and she is no longer having the bradycardia. Looking back at EMR outpatient visits, her usual dose is 1.5mg daily x 6 days per week and 2mg once per week. She did come in supratherapeutic however. Would recommend restarting at 1.5mg daily once she is back in therapeutic range. (7) Mitral valve replaced Status: Chronic Assessment & Plan: INR goal of 2.5-3.5. She is now therapeutic, so will discontinue Lovenox. Warfarin was initially started at a lower dose because of concerns of interactions with Levofloxacin then resumed regular dosing when levofloxacin discontinued. She did present with a supra-therapeutic INR so will need to watch her INR closely and adjust her dose as needed. She has also gradually dropped her hemoglobin so will need to watch closely for signs of bleeding. (8) Type 2 diabetes mellitus without complications Status: Chronic Assessment & Plan: Metformin held secondary to ARF and normal BS. She is currently on diet as tolerated secondary to the weight loss. AC and HS glucose. So far, she has not required insulin dosing per sliding scale. Will continue to hold metformin. (9) Rheumatoid arthritis Status: Chronic Assessment & Plan: She is chronically on methotrexate, which we will hold for now due to active infection. (10) Acquired hypothyroidism Status: Chronic Assessment & Plan: TSH was low at 0.03 on 9/21/18. TSH is 0.88 now. Continue chronic replacement for now. (11) Neuropathy, idiopathic Status: Chronic Assessment & Plan: Chronic. (12) Anemia Assessment & Plan: Iron studies show a low iron level. Ferritin is pending. B12 level is borderline low. Methylmalonic acid is pending. Stool is positive for occult blood. She did receive 2 units of red cells yesterday. Will monitor closely. Exam Sepsis Risk: No Definite Risk Problem Qualifiers (1) Pneumonia: Pneumonia type: due to unspecified organism AURORA GASPAR DO Jun 11, 2018 10:08
[2018-06-11] MEDS: CALCIUM CARBONATE/VITAMIN D3 PO SCH ×2 (12:38→17:33)
[2018-06-11] MEDS ORDERED: WARFARIN SOD 1 MG TAB PO SCH (13:00)
[2018-06-11 15:39] VITALS: BP 137/83
[2018-06-11] MEDS ORDERED: NS(*) 0.9% 250 ML BAG 250 ML ONE (19:48)
[2018-06-11 20:35] VITALS: BP 112/65
[2018-06-11] MEDS: ACETAMINOPHEN 325 MG TAB PO PRN (21:17)
[2018-06-12] MEDS: IMIPENEM/CILASTA(*) 500MG VIAL 500 MG in NS(*) 0.9% 100 ML BAG 100 ML IVPB SCH ×3 (01:41→20:31)
[2018-06-12 02:55] VITALS: BP 123/68
[2018-06-12] MEDS: LEVOTHYROXINE SOD 0.088 MG TAB PO SCH (05:29)
[2018-06-12 06:05] LABS: PLATELET COUNT, AUTOMATED 177 K/uL (150-450)
[2018-06-12 06:13] LABS: INR 3.71
[2018-06-12 07:37] VITALS: BP 115/86
[2018-06-12] MEDS: ALBUTEROL/IPRATROPIUM 3 ML NEB NEB SCH ×4 (08:33→18:33)
[2018-06-12] MEDS: guaiFENesin 600 MG TABCR PO SCH ×2 (10:01→20:31)
[2018-06-12] MEDS: ACETAMINOPHEN 325 MG TAB PO PRN ×3 (10:02→23:35)
[2018-06-12] MEDS: SPIRONOLACTONE 25 MG TAB PO SCH (10:02)
[2018-06-12] MEDS: POLYETHYLENE GLYCOL 17 GM PKT PO SCH (10:02)
[2018-06-12] MEDS: predniSONE 20 MG TAB PO SCH (10:02)
[2018-06-12] MEDS: BETA-CAROTENE(A) & E/MIN TAB PO SCH (10:02)
[2018-06-12] MEDS: FOLIC ACID 1 MG TAB PO SCH (10:02)
[2018-06-12] MEDS: DOCUSATE SODIUM 100 MG CAP PO SCH ×2 (10:02→20:31)
[2018-06-12] MEDS: FUROSEMIDE 40 MG TAB PO SCH (10:02)
--- NOTE | 2018-06-12 10:27 | RADIOLOGY IMAGING REPORT ---
FACILITY: [facility] PATIENT NAME: Kinsey Hwang : 1935 MR: [id number] V: [id number] EXAM DATE: ORDERING PHYSICIAN: NIRANJAN CHAPMAN TECHNOLOGIST: Location: [facility] - [place] Patient: Kinsey Hwang : 1935 Visit/Account:[id number] Date of Sevice: 06/12/2018 CHEST SINGLE AP Indication: Pneumonia. Comparison: June 10, 2018 Findings: Note is made of a cardiac valve replacement Left-sided PICC line with tip projecting over the distal SVC Cardiomegaly, stable to slightly decreased since prior exam Bronchovascular prominence appears stable to slightly decreased since prior exam. There is decreased consolidation within the left lower lung. Probable small bilateral pleural effusions. Right basilar opacities favored related to atelectasis a nd/or effusion IMPRESSION: 1. Cardiomegaly with stable to slightly decreased bronchovascular prominence. 2. Left basilar opacity appears appears decreased since prior exam. 3. Probable bilateral pleural effusions and atelectasis. Report Dictated By: Urbano Zavala MD at 06/12/2018 10:18 AM Report E-Signed By: Urbano Zavala MD at 06/12/2018 10:20 AM WSN:[email or web address]
[2018-06-12] MEDS: CALCIUM CARBONATE/VITAMIN D3 PO SCH ×2 (11:50→16:30)
--- NOTE | 2018-06-12 11:57 | NUR ---
Occupational Therapy Impression Min A supine to sit. CGA ambulation x30ft with RW. CGA hand hygiene standing sink front. V/c's for safety with RW. Mod A toileting. Max A LB dressing. V/c's for sequencing safe sit<>stands. SpO2 WNL on room air. Recommend short-term rehab prior to discharge to family's home in [place]. Occupational Therapy Goals 1) Pt will be Min A grooming/hygiene. 2) Pt will be Min A toilet task. 3) Pt will be Min A UB/LB dressing. Patient's Goal
[2018-06-12] MEDS ORDERED: VANCOMYCIN HCL(*) 0.750 GM ADD 0.75 GM in NS(*) 0.9% 250 ML ADDVAN BAG 250 ML IVPB SCH (13:00)
--- NOTE | 2018-06-12 13:12 | Hospitalist Progress Note ---
Subjective Progress Notes Subjective 82F admitted from [facility] after having increased SOB. HERBERT overnight, having productive cough some pleuritic chest pain. Patient Complains of: Respiratory: Cough, Wheezing Gastrointestinal: No Nausea, No Vomiting Physical Exam Vital Signs Date Time Temp Pulse Resp B/P (MAP) Pulse Ox O2 Delivery O2 Flow Rate FiO2 06/12/18 12:27 94 Room Air 06/12/18 12:27 81 16 06/12/18 07:37 97.8 115/86 (96) 06/10/18 11:02 Intake and Output 06/12/18 07:00 Intake Total 1110 ml Balance 1110 ml Intake Oral 460 ml IV Total 650 ml # Voids 8 # Bowel Movements 6 General Appearance: Alert, Awake, No Acute Distress, Afebrile Neuro: No Gross deficits ENT: Normal Cardiovascular: Normal Rhythm & Peripheral Pulses Respiratory: Other (coarse breathsounds b/l. ) GI: Soft and Non-Tender Extremities: Soft and Non Tender, Warm, Pulses, Perfused, Edema (moderate pitting to knees b/l) Integumentary: Skin Intact without Lesion / Mass Result Diagram: 06/12/1852706/12/18527 Assessment and Plan Problems: (1) Pneumonia Status: Acute Assessment & Plan: She did have increased congestion and shortness of breath. Her x-ray suggested a left sided infiltrate with associated pleural effusion. She was started on empiric treatment with Primaxin. Cultures have been negative. 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 Dr. Orantes has been following her as an outpatient. Purulent discharge was noted on initial evaluation, and a wound culture has grown MRSA. A plain film was negative for osteomyelitis. Physical therapy is providing wound care. She was initially started on vancomycin and levofloxacin, but is now just on vancomycin. Will cont inue for total 14 days therapy. She received her first dose of vancomycin on 05/30. She will need to continue THROUGH June 12, 2018. (3) ARF (acute renal failure) Status: Acute Assessment & Plan: She presented with weakness and falls. Her creatinine was elevated to 2.0 from her baseline of 1.2-1.5. Secondary to dehydration that was exacerbated by furosemide and spironolactone. Her creatinine has improved to 1.0. She does have increased edema. The spironolactone and Lasix were restarted. Daily weights have also been ordered. (4) Weakness Status: Acute Assessment & Plan: She has had more falls at home. She had lost about 5 pounds in the last 12 days prior to admission. Prealbumin low at 16.7. OT/PT are following the patient. Will continue on SHANNAN to ensure adequate calorie intake. Once recovered from her acute illness, she will likely need to be transferred back to [facility] for ongoing acute rehab. (5) Hematoma Status: Acute Assessment & Plan: She did have a large hematoma on the left outer thigh. Her Hgb/Hct dropped after admission. She was transfused and her Hgb improved to 9.1 but has gradually decreased down once again to 7.8. She is on anticoagulation therapy with Coumadin/Lovenox, but no evidence of overt bleeding. She does have chronic RA. (6) Atrial fibrillation, controlled Status: Chronic Assessment & Plan: She was on chronic treatment with digoxin and warfarin. The digoxin was held secondary to bradycardia (HR in the 30's while sleeping) and concerns that it might be contributing to her falls. Her rate is controlled off the digoxin and she is no longer having the bradycardia. Looking back at EMR outpatient visits, her usual dose is 1.5mg daily x 6 days per week and 2mg once per week. She did come in supratherapeutic however. Would recommend restarting at 1.5mg daily once she is back in therapeutic range. (7) Mitral valve replaced Status: Chronic Assessment & Plan: INR goal of 2.5-3.5. She is now therapeutic, so will discontinue Lovenox. Warfarin was initially started at a lower dose because of concerns of interactions with Levofloxacin then resumed regular dosing when levofloxacin discontinued. She did present with a supra-therapeutic INR so will need to watch her INR closely and adjust her dose as needed. She has also gradually dropped her hemoglobin so will need to watch closely for signs of bleeding. (8) Type 2 diabetes mellitus without complications Status: Chronic Assessment & Plan: Metformin held secondary to ARF and normal BS. She is currently on diet as tolerated secondary to the weight loss. AC and HS glucose. So far, she has not required insulin dosing per sliding scale. Will continue to hold metformin. (9) Rheumatoid arthritis Status: Chronic Assessment & Plan: She is chronically on methotrexate, which we will hold for now due to active infection. (10) Acquired hypothyroidism Status: Chronic Assessment & Plan: TSH was low at 0.03 on 03/01/18. TSH is 0.88 now. Continue chronic replacement for now. (11) Neuropathy, idiopathic Status: Chronic Assessment & Plan: Chronic. (12) Anemia Assessment & Plan: Iron studies show a low iron level. Ferritin is pending. B12 level is borderline low. Methylmalonic acid is pending. Stool is positive for occult blood. She did receive 2 units of red cells yesterday. Will monitor closely. Exam Sepsis Risk: Severe Sepsis Risk Problem Qualifiers (1) Pneumonia: Pneumonia type: due to unspecified organism NIRANJAN PARRA DO Jun 12, 2018 13:11
[2018-06-12] MEDS: BENZOCAINE/MENTHOL 1 EACH LOZG PO PRN ×3 (13:37→23:47)
--- NOTE | 2018-06-12 14:18 | NUR ---
Physical Therapy Impression Wound dressing had been changed by nursing. Noted no alginate present in wound bed. Wound bed remains 100% granulation tissue without the need for debridement. Noted continued blanchable montrell-wound area which remains a bluish color much like a bruise. Discussed with nursing. Pt's INR has been supra-therapeutic. This PT gently massaged blue area with noted improved coloration, however, this was temporary. Nursing and PT agreed to leave wound open to air for some time this afternoon to see if any improvement. Nursing agree to place alginate in wound bed and dress with silicone boarded dressing. PT to view again Sunday. Physical Therapy Goals 1. SBA bed mobility. 2. SBA transfers. 3. SBA gait x 150' with RW. 4. Ascend/descend stairs appropriate for Pt's daughter's home. Patient's Goals
[2018-06-12 15:13] VITALS: BP 102/66
--- NOTE | 2018-06-12 16:02 | NUR ---
Physical Therapy Impression Pt is showing continual decreased activity tolerance. Shallow and wheezing breaths throughout session. SpO2 WNL. Min A bed mob. CGA ambulation to/from bathroom with FWW. Total A for brief change and montrell care. Pt able to maintain balance during montrell care with SBA. Pt with only minimal and very quiet conversation during session. Notified nursing of small amounts of blood found with montrell care. Pt reports no pain in this area. Recommend further rehab when medically appropriate. Physical Therapy Goals 1. SBA bed mobility. 2. SBA transfers. 3. SBA gait x 150' with RW. 4. Ascend/descend stairs appropriate for Pt's daughter's home. Patient's Goals
[2018-06-12 19:19] VITALS: BP 118/58
[2018-06-12] MEDS ORDERED: CALCIUM CARBONATE 500 MG CHEW PO PRN (19:25)
[2018-06-13] MEDS: IMIPENEM/CILASTA(*) 500MG VIAL 500 MG in NS(*) 0.9% 100 ML BAG 100 ML IVPB SCH ×4 (02:05→20:00)
[2018-06-13 02:52] VITALS: BP 129/88
[2018-06-13] MEDS: BENZOCAINE/MENTHOL 1 EACH LOZG PO PRN ×2 (03:19→07:24)
[2018-06-13] MEDS: ACETAMINOPHEN 325 MG TAB PO PRN ×2 (05:36→11:24)
[2018-06-13] MEDS: LEVOTHYROXINE SOD 0.088 MG TAB PO SCH (05:37)
[2018-06-13] MEDS: ALBUTEROL/IPRATROPIUM 3 ML NEB NEB SCH ×4 (05:54→23:55)
[2018-06-13 06:10] LABS: PLATELET COUNT, AUTOMATED 185 K/uL (150-450)
[2018-06-13 06:16] LABS: INR 3.94
[2018-06-13 07:18] VITALS: BP 119/84
[2018-06-13] MEDS: BETA-CAROTENE(A) & E/MIN TAB PO SCH (09:02)
[2018-06-13] MEDS: FUROSEMIDE 40 MG TAB PO SCH (09:02)
[2018-06-13] MEDS: SPIRONOLACTONE 25 MG TAB PO SCH (09:02)
[2018-06-13] MEDS: FOLIC ACID 1 MG TAB PO SCH (09:02)
[2018-06-13] MEDS: guaiFENesin 600 MG TABCR PO SCH ×2 (09:03→20:00)
[2018-06-13] MEDS: predniSONE 20 MG TAB PO SCH (09:03)
--- NOTE | 2018-06-13 10:28 | NUR ---
Occupational Therapy Impression Pt. ambulated 200 feet with one rest break with use of FWW on room air. Pt. required SBA to perform sit to supine bed mobility activity. Plan is for pt. to d/c to [facility] for continued rehab. Occupational Therapy Goals 1) Pt will be Min A grooming/hygiene. 2) Pt will be Min A toilet task. 3) Pt will be Min A UB/LB dressing. Patient's Goal
--- NOTE | 2018-06-13 11:07 | Hospitalist Progress Note ---
Subjective Progress Notes Subjective She reports feeling improved, but still reports cough and generalized weakness. Physical Exam Vital Signs Date Time Temp Pulse Resp B/P (MAP) Pulse Ox O2 Delivery O2 Flow Rate FiO2 06/13/18 07:24 93 Room Air 06/13/18 07:18 97.4 80 22 119/84 (96) 06/10/18 11:02 Intake and Output 06/13/18 07:00 Intake Total 1150 ml Balance 1150 ml Intake Oral 600 ml IV Total 550 ml # Voids 10 # Bowel Movements 4 General Appearance: Alert, Awake Cardiovascular: Other (Fairly regular with valve click) Respiratory: Other (scattered rhonchi/few rales at left base) GI: Soft and Non-Tender Musculoskeletal: Other (chronic RA changes hands/less in feet) Extremities: Warm, Perfused Integumentary: Other (foot wound dressed) Result Diagram: 06/13/18 0530 06/13/18 0530 Assessment and Plan Problems: (1) Pneumonia Status: Acute Assessment & Plan: She did have increased congestion and shortness of breath. Her x-ray suggested a left sided infiltrate with associated pleural effusion. She was started on empiric treatment with IV Primaxin. Cultures have been negative. She will complete 7 days of IV antibiotics tomorrow. 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 Dr. Orantes has been following her as an outpatient. Purulent discharge was noted on initial evaluation and a wound culture has grown MRSA. A plain film was negative for osteomyelitis. Physical therapy is providing wound care. She was initially started on vancomycin and levofloxacin, but was transitioned to just vancomycin. She has completed a total 14 days therapy. (3) ARF (acute renal failure) Status: Acute Assessment & Plan: She presented with weakness and falls. Her creatinine was elevated to 2.0 from her baseline of 1.2-1.5. Secondary to dehydration that was exacerbated by furosemide and spironolactone. Her creatinine has improved to 1.0. She did have some increased edema. The spironolactone and Lasix were restarted. Her creatinine has remained in normal range. Daily weights have also been ordered. (4) Weakness Status: Acute Assessment & Plan: She has had more falls at home. She had lost about 5 pounds in the last 12 days prior to admission. Prealbumin low at 16.7. OT/PT are following the patient. Will continue on SHANNAN to ensure adequate calorie intake and also encouraged protein intake. Once recovered from her acute illness, she will likely need to be transferred back to [facility] for ongoing acute rehab. (5) Hematoma Status: Acute Assessment & Plan: She did have a large hematoma on the left outer thigh. Her Hgb/Hct dropped after admission. She was transfused and her Hgb improved to 9.1 but has gradually decreased down once again to 7.8. She is on anticoagulation therapy with Coumadin/Lovenox, but no evidence of overt bleeding. She does have chronic RA. Her iron studies do show some decreased iron saturation. Will start low dose iron replacement. Will need to consider GI workup in near future - once acute illness has improved/resolved. (6) Atrial fibrillation, controlled Status: Chronic Assessment & Plan: She was on chronic treatment with digoxin and warfarin. The digoxin was held secondary to bradycardia (HR in the 30's while sleeping) and concerns that it might be contributing to her falls. Her rate is controlled off the digoxin and she is no longer having the bradycardia. Looking back at EMR outpatient visits, her usual dose is 1.5mg daily x 6 days per week and 2mg once per week. She did come in supra-therapeutic. She was restarted at 1.5mg daily, but her INR has climbed into "upper" therapeutic range - warfarin is currently on hold and watching daily INR. (7) Mitral valve replaced Status: Chronic Assessment & Plan: INR goal of 2.5-3.5. Her INR is in "upper" therapeutic range - warfarin is currently on hold. Daily INR monitoring. She has also gradually dropped her hemoglobin so will need to watch closely for signs of bleeding. (8) Type 2 diabetes mellitus without complications Status: Chronic Assessment & Plan: Metformin held secondary to ARF and normal BS. She is currently on diet as tolerated secondary to the weight loss. AC and HS glucose. So far, she has not required insulin dosing per sliding scale. Will continue to hold metformin. (9) Rheumatoid arthritis Status: Chronic Assessment & Plan: She is chronically on methotrexate, which we will hold for now due to active infection. (10) Acquired hypothyroidism Status: Chronic Assessment & Plan: TSH was low at 0.03 on 03/01/18. TSH is 0.88 now. Continue chronic replacement for now. (11) Neuropathy, idiopathic Status: Chronic Assessment & Plan: Chronic. (12) Anemia Assessment & Plan: Iron studies show a low iron level (start low dose iron). Ferritin is normal, but can be due to acute inflammation. B12 level is borderline low. Methylmalonic acid is pending. Stool is positive for occult blood. She did receive 2 units of red cells. Will monitor closely. Exam Sepsis Risk: Severe Sepsis Risk Problem Qualifiers (1) Pneumonia: Pneumonia type: due to unspecified organism ERVIN LOPES MD Jun 13, 2018 11:07
[2018-06-13] MEDS: CALCIUM CARBONATE/VITAMIN D3 PO SCH ×2 (11:23→18:00)
--- NOTE | 2018-06-13 15:59 | NUR ---
Physical Therapy Impression Pt up in bathroom upon therapist arrival. Total A montrell care, Mod A clothing mgmt. Ambulation x 250' with FWW and SBA. Improved tolerance for activity this date. Assist for LE's into bed at end of session. SpO2 WNL on room air. Recommend short term sub acute rehab. Cont. with POC. Physical Therapy Goals 1. SBA bed mobility. 2. SBA transfers. 3. SBA gait x 150' with RW. 4. Ascend/descend stairs appropriate for Pt's daughter's home. Patient's Goals
--- NOTE | 2018-06-13 16:28 | Medical Nutrition Therapy ---
Nutrition Anthropometrics Height (Inches): 60.00 Height (Calculated Centimeters: 152.054171 Weight (Pounds): 126 Weight (Calculated Kilograms): 57.153 BMI: 22.5 Jackson Nutrition Score: Probably Inadequate Jackson Nutrition Risk Score: 16 Dietary Referral Nutrition Risk Factors: Unplanned Loss >10lbs Nutrition Risk Comment: States weighed 118# before this hospitalization Nutritional Diagnosis Nutritional Risk Acuity 2: Abcess/Non-Healing Wound Nutritional Risk Acuity 3: Fair Appetite Past Medical History: T2DM, RA, CHF, Neuropathy Nutritional Acuity: 2-Moderate Nutrition Diagnosis: Increased Nutrient Needs Nutrition Etiology: Physiological Causes Nutrition Problem/Etiology/Sym: Increased Nutrient Needs (Protein) related to Increased demand for nutrient, e.g., wound healing AEB low albumin status indicating increased stress and increased metabolic needs. Energy Requirement: 1550 (Powell-St Jeor: Actual BW X 1.7) Protein Requirement: 63 (Actual BW Kg X 1.2) Fluid Requirement: 1550 Diet Type: Diet as Tolerated SHANNAN/REG Nutrition Intervention: Cont diet as ordered, Check glucose Drug: Diuretics Diet Comment To RSA: OFFER NUTITIONAL SUPPLEMENTS AND ADD PROTEIN POWDER TO APPROPRIATE FOODS Nutrition Monitoring & Eval Nutrition Goals: Eat 75-100% Meal Nutrition Follow-Up: Fair Intake RD Patient Assessment Time: [address] Assessment Type: RD Re-Assessment Patient Nutrition Acuity: 2-Moderate Follow Up Date: Jun 17, 2018 Nutritional Comment: 06/08/18 Pt transferred from [facility] to [facility] for pneumonia with pleural effusion. Within normal wt range with BMI of 22.5. Low H/H, Alb 2.5, Glu 140, Fe 19, Low Na, High BUN. Pt also has incrased protein needs r/t non-healing wound with low alb. Will offer nutr supplment and put protein powder in appropriate foods. Receiving SHANNAN with consumption of bites - 50% of meals. Will follow labs, intake, etc. -DRT 06/10/18 Alb 2.3, Glu 126, Low Na+. Meal intake varible at 10-100%. Encourage intake, follow labs, etc. -DRT 1/ Pt cont SHANNAN. Intake average 53% of small to regular portions. Pt is taking small amounts of nutr supplments. Will cont to offer. BUN cont elevated at 24, creatinine WNR at 0.9. pt on K+ depleting duiretic. Currently K+ is WNR at 4.1. Will cont to monitor and encourage intake. PARTH MCFARLAND Jun 13, 2018 16:28
[2018-06-13 16:35] VITALS: BP 130/91
[2018-06-13] MEDS: POLYSACCHARIDE IRON COM 150 MG PO SCH (18:00)
[2018-06-13 20:08] VITALS: BP 137/90
[2018-06-14] MEDS: IMIPENEM/CILASTA(*) 500MG VIAL 500 MG in NS(*) 0.9% 100 ML BAG 100 ML IVPB SCH ×2 (02:23→08:16)
[2018-06-14] MEDS: ALBUTEROL/IPRATROPIUM 3 ML NEB NEB SCH (05:32)
[2018-06-14] MEDS: LEVOTHYROXINE SOD 0.088 MG TAB PO SCH (05:51)
[2018-06-14 06:12] LABS: PLATELET COUNT, AUTOMATED 224 K/uL (150-450)
[2018-06-14 06:18] LABS: INR 2.88
[2018-06-14 07:25] VITALS: BP 130/85
[2018-06-14] MEDS: predniSONE 20 MG TAB PO SCH (08:21)
[2018-06-14] MEDS: SPIRONOLACTONE 25 MG TAB PO SCH (08:21)
[2018-06-14] MEDS: FOLIC ACID 1 MG TAB PO SCH (08:21)
[2018-06-14] MEDS: POLYSACCHARIDE IRON COM 150 MG PO SCH (08:22)
[2018-06-14] MEDS: FUROSEMIDE 40 MG TAB PO SCH (08:22)
[2018-06-14] MEDS: BETA-CAROTENE(A) & E/MIN TAB PO SCH (08:22)
[2018-06-14] MEDS: guaiFENesin 600 MG TABCR PO SCH (08:23)
--- NOTE | 2018-06-14 10:35 | Transfer Summary (ECF/SWB) ---
Transfer Summary ([facility]) Problems: (1) Pneumonia Status: Acute Assessment & Plan: She did have increased congestion and shortness of breath. Her x-ray suggested a left sided infiltrate with associated pleural effusion. She was started on empiric treatment with IV Primaxin. She has completed 7 days of antibiotic therapy. Cultures have been negative. 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 Dr. Orantes has been following her as an outpatient. Purulent discharge was noted on initial evaluation and a wound culture has grown MRSA. A plain film was negative for osteomyelitis. Physical therapy is providing wound care. She was initially started on vancomycin and levofloxacin, but was transitioned to just vancomycin. She has completed a total 14 days therapy. (3) ARF (acute renal failure) Status: Acute Assessment & Plan: She presented with weakness and falls. Her creatinine was elevated to 2.0 from her baseline of 1.2-1.5. Secondary to dehydration that was exacerbated by furosemide and spironolactone. Her creatinine has improved to 1.0. She did have some increased edema. The spironolactone and Lasix were restarted. Her creatinine has remained in normal range. (4) Weakness Status: Acute Assessment & Plan: She has had more falls at home. She had lost about 5 pounds in the last 12 days prior to admission. Prealbumin low at 16.7. OT/PT are following the patient. Will continue on SHANNAN to ensure adequate calorie intake and also encouraged protein intake. She will be transferred back to [facility] for o ngoing acute rehab. (5) Hematoma Status: Acute Assessment & Plan: She did have a large hematoma on the left outer thigh. Her Hgb/Hct dropped after admission. She was transfused and her Hgb improved to 9.1 but has gradually decreased down once again to 7.8. She is on anticoagulation therapy with Coumadin/Lovenox, but no evidence of overt bleeding. She does have chronic RA. Her iron studies do show some decreased iron saturation. Will start low dose iron replacement. Will need to consider GI workup in near future - once acute illness has improved/resolved. (6) Atrial fibrillation, controlled Status: Chronic Assessment & Plan: She was on chronic treatment with digoxin and warfarin. The digoxin was held secondary to bradycardia (HR in the 30's while sleeping) and concerns that it might be contributing to her falls. Her rate is controlled off the digoxin and she is no longer having the bradycardia. Looking back at EMR outpatient visits, her usual dose is 1.5mg daily x 6 days per week and 2mg once per week. She did come in supra-therapeutic. She was restarted at 1.5mg daily, but her INR has climbed into "upper" therapeutic range - warfarin is currently on hold and watching daily INR. (7) Mitral valve replaced Status: Chronic Assessment & Plan: INR goal of 2.5-3.5. Her INR is 2.8 today - warfarin will be resumed today. Daily INR monitoring. She has also gradually dropped her hemoglo bin so will need to watch closely for signs of bleeding. (8) Type 2 diabetes mellitus without complications Status: Chronic Assessment & Plan: Metformin held secondary to ARF and normal BS. She is currently on diet as tolerated secondary to the weight loss. AC and HS glucose. So far, she has not required insulin dosing per sliding scale. Will continue to hold metformin. (9) Rheumatoid arthritis Status: Chronic Assessment & Plan: She is chronically on methotrexate, which we will hold for now due to active infection. (10) Acquired hypothyroidism Status: Chronic Assessment & Plan: TSH was low at 0.03 on 03/01/18. TSH is 0.88 now. Continue chronic replacement for now. (11) Neuropathy, idiopathic Status: Chronic Assessment & Plan: Chronic. (12) Anemia Assessment & Plan: Iron studies show a low iron level (start low dose iron). Ferritin is normal, but can be due to acute inflammation. B12 level is borderline low. Methylmalonic acid is pending. Stool is positive for occult blood. She did receive 2 units of red cells. Will monitor closely. Latest Vital Signs Vital Signs Date Time Temp Pulse Resp B/P (MAP) Pulse Ox O2 Delivery O2 Flow Rate FiO2 06/14/18 07:25 98.6 86 20 130/85 (100) 93 Room Air 06/10/18 11:02 Result Diagram: 06/14/18 0547 06/14/18546 Condition: Improved Disposition: SNF/NH Treatment Goals and Plan Patient requires fdc for [facility] and is ready for admission to [facility]. Any change in condition is described below. Services Required: PT, OT Copies To 1: KACIE MENDES MD ; Problem Qualifiers (1) Pneumonia: Pneumonia type: due to unspecified organism LARRY JAVIER SHIP MATE Jun 14, 2018 10:35
== END 2018-06-14 10:40 | DRG 194 ==
LOC: MED 19:37
PROVIDERS: ADMIT Internal Medicine; ATTEND Internal Medicine
PROC: 30233N1 Transfusion of Nonautologous Red Blood Cells into Peripheral Vein, Percutaneous Approach (ICD-10-PCS; principal; 2018-06-08)
DX: J18.9 Pneumonia, unspecified organism (principal); N17.9 Acute kidney failure, unspecified; I48.2 Chronic atrial fibrillation; R53.1 Weakness; Z66 Do not resuscitate; E03.9 Hypothyroidism, unspecified; S91.302A Unspecified open wound, left foot, initial encounter; S70.02XA Contusion of left hip, initial encounter; B95.62 Methicillin resistant Staphylococcus aureus infection as the cause of diseases classified elsewhere; G47.62 Sleep related leg cramps; M06.9 Rheumatoid arthritis, unspecified; G60.9 Hereditary and idiopathic neuropathy, unspecified; E11.628 Type 2 diabetes mellitus with other skin complications; T46.0X5A Adverse effect of cardiac-stimulant glycosides and drugs of similar action, initial encounter; R60.0 Localized edema; D50.9 Iron deficiency anemia, unspecified; R63.4 Abnormal weight loss; Z79.01 Long term (current) use of anticoagulants; Z95.2 Presence of prosthetic heart valve; Z79.4 Long term (current) use of insulin; Z88.2 Allergy status to sulfonamides; Z88.0 Allergy status to penicillin; Z91.040 Latex allergy status; Z91.81 History of falling; Z68.24 Body mass index [BMI] 24.0-24.9, adult
CPT/HCPCS: 36415; 36416; 71045; 74018; 80202; 82040; 82247; 82274; 82310; 82374; 82435; 82565; 82728; 82947; 82948; 83540; 83550; 84075; 84132; 84155; 84295; 84450; 84460; 84520; 85025; 85610; 86850; 86870; 86900; 86901; 86902; 86920; 87040; 94640; 94667; 97161; 97162; 97166; J0743; J1642; J1650; J2997; J3370; J7030; J7050; J7512; J7613; P9016

== ENCOUNTER 2018-06-14 10:40 | Inpatient (IN) | payer MEDICARE, OTHER ==
[2018-06-08 15:17] VITALS: Ht 12.7 cm; Wt 56.7 kg
[~2018-06-14] VITALS: Ht 12.7 cm; Wt 56.7 kg
[~2018-06-14 10:40] MED LIST changes: +METR500T15 PO; -METR500T54 PO
[2018-06-14 11:00] VITALS: BP 117/65
[2018-06-14] MEDS ORDERED: ALBUTEROL 2.5 MG/3 ML NEB NEB PRN (11:19)
[2018-06-14] MEDS ORDERED: BISACODYL 10 MG SUPP PR PRN (11:19)
[2018-06-14] MEDS ORDERED: ENOXAPARIN 40 MG/0.4ML SYR SC SCH (11:19)
[2018-06-14] MEDS ORDERED: clonazePAM 0.5 MG TAB PO PRN (11:19)
[2018-06-14] MEDS ORDERED: CALCIUM CARBONATE/VITAMIN D3 PO SCH (11:19)
[2018-06-14] MEDS ORDERED: MAGNESIUM HYDROXIDE* 30ML UDCP PO PRN (11:19)
[2018-06-14] MEDS ORDERED: BENZOCAINE/MENTHOL 1 EACH LOZG PO PRN (11:19)
[2018-06-14] MEDS ORDERED: CALCIUM CARBONATE 500 MG CHEW PO PRN ×2 (11:19→11:30)
[2018-06-14] MEDS ORDERED: PNEUMOCOC VAC POLY 25MCG/0.5ML IM ONLY ONE (11:25)
[2018-06-14] MEDS ORDERED: INFLUENZA VIRUS VAC 0.5ML SYR IM ONLY ONE (11:25)
--- NOTE | 2018-06-14 11:33 | Consultant Pharmacy Review ---
Community Support Associate Review Medication Review Do All Mecications have a Diag: Yes (LABS: INR while on coumadin) Pneumococcal Vaccine HX Pneumo Vac ([id number]): Yes (03/02/16) HX Pneumo Vac (Pneumovax): Yes (04/02/07) NIKOLAI QUIJANO Jun 14, 2018 11:33
[2018-06-14] MEDS: ACETAMINOPHEN 325 MG TAB PO PRN (11:56)
[2018-06-14] MEDS: ALBUTEROL/IPRATROPIUM 3 ML NEB NEB SCH ×2 (12:00→17:27)
[2018-06-14] MEDS: CALCIUM CARBONATE/VITAMIN D3 PO SCH ×2 (12:00→17:00)
--- NOTE | 2018-06-14 12:46 | OT ECF NOTE ---
Type of Note: Initial Note Primary Medical Diagnosis: Generalized weakness s/p extended hospital admissions/transfers. Occupational Therapy Evaluation Date: 06/14/18 SUBJECTIVE: Prior Hospitalization: [facility] 05/29/18-06/04/18. [facility] 06/04/18 thru 06/07/18. [facility] 06/07/18 thru 06/14/18 for pneumonia. Return to [facility] 06/14/18 for continued skilled care and rehab. Prior Level of Function: Pt. was [facility], however, was not able to care for herself adequately recently. Prior Living Status: Apartment Living with family Assist by family Community Services: No known needs Home Accessibility: Stairs with rails Tub/shower combination-Pt unable to recall all of daughter's apartment set-up. Will follow. Equipment Owned: Rollator Tub/shower chair Medical Complications/Past Medical History: Please refer to chart for details. Psychosocial Support: Very supportive daughter and family. Pain Scale (0-10): 3/10 in bilateral LE's due to swelling. Bilateral LE's elevated at end of tx, pt expressing relief. OBJECTIVE: Strength: MMT: Right Left Shoulder Flexion [*] [*] Elbow Flexion [*] [*] Wrist Extension [*] [*] Wool Brusher [*] [*] (5= normal, 4= good, 3= fair, 2= poor, 1= trace) ROM: Both upper extremities, Severely limited Functional Transfer: Assistive Device: Front wheeled walker, Gait belt Transfer Ability: 1-person assist, CGA ADL: Upper body dressing: Assistive device: Upper body dressing ability: Lower body dressing: Assistive device: Lower body dressing ability: Maximum assistance (to damion/doff socks and shoes) Toileting: Assistive device: Grab bars Toileting ability: Minimum assistance Grooming/hygiene: Standing Assistive device: None-Fatigues within a few minutes of standing Grooming ability: Minimum assistance Bathing: Assistive device: Bathing ability: N/T Standardized Assessment: Mica Index of Activities of Daily Living- Pt. scored 12/20 on this index on 06/14/18. ASSESSMENT: Pt. is a 82 year old female admitted with various recent hospital admissions/transfers (see EMR). Pt. had been residing alone in a bi- level home in [place], however, was not able to care for her herself adequately recently. Pt. was admitted to [facility] in order to receive additional therapy to increase strength and independence in ADL activities. Pt.will d/c to daughter's apartment in [place], [place], which has 15-17 stairs to access. Problem List/Current Limitations: Decreased activity tolerance Decreased sensation Decreased ROM Memory deficits Short Term Goals: 1. Pt. to perform showering activities with Min A. 2. Pt. to perform toileting activities with Mod I. 3. Pt. to perform dressing activities with Min A. 4. Pt. to perform grooming activities with I. 5. Pt. to increase Mica Index of ADL score by 2 points. 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 Patient Goals: D/c to daughters apartment Rehabilitation Prognosis: Fair Barriers to Discharge: Memory Deficits, RA PLAN: The patient will benefit from skilled occupational therapy services 5 times per week for 2 weeks including: Ther ex ADL training Safety training Ther act IADL training Transfer training Adaptive equip training Bed mobility Thank you for this referral. If you have any questions, concerns, or comments about this report or plan, please contact me at . Dominga Crawford MS, OTR/L Occupational Therapist [facility]
--- NOTE | 2018-06-14 14:15 | Medical Nutrition Therapy ---
Nutrition Anthropometrics Height (Inches): 60 Weight (Pounds): 123 Jackson Nutrition Score: Probably Inadequate Jackson Nutrition Risk Score: 16 Dietary Referral Nutrition Risk Factors: Unplanned Loss >10lbs Nutrition Risk Comment: States weighed 118# before this hospitalization Nutritional Diagnosis Nutritional Risk Acuity 2: Abcess/Non-Healing Wound Nutritional Risk Acuity 3: Fair Appetite Past Medical History: T2DM, RA, CHF, Neuropathy Nutrition Diagnosis: Increased Nutrient Needs Nutrition Etiology: Physiological Causes Nutrition Problem/Etiology/Sym: Increased Nutrient Needs (Protein) related to Increased demand for nutrient, e.g., wound healing AEB low albumin status indicating increased stress and increased metabolic needs. Energy Requirement: 1550 (M- STJx 1.7) Protein Requirement: 71 (1.5GM/KG) Fluid Requirement: 1200 (25ML/KG) Diet Type: Diabetic Drug: Diuretics Additional Diet Restrictions: OFFER SF NUTR SUPPLMENT Nutrition Monitoring & Eval Nutrition Goals: Eat 50-100% Meal RD Patient Assessment Time: [address] Assessment Type: RD Assessment Patient Nutrition Acuity: 2-Moderate Follow Up Date: Jun 18, 2018 Nutritional Comment: 06/14 Pt readmitted from med unit. Pt on ADA diet and was eating 53 % of small to regular portion on med unit. Will cont to offer nutr supplment to increase kcal and protein intake. Wt was 105# 12/20. Current wt 123# with 3+ edema LE ( up 17%). Anticipate wt loss when edema resolved. Pt is on K+ sparing duiretic. K+ is WNR at 3.8. BG ranging 80-170's. alb 2.5 Will cont to monitor and encourage intake. PARTH PRINCE Jun 14, 2018 14:15
--- NOTE | 2018-06-14 14:46 | PT ECF NOTE ---
Type of Note: Initial Note Primary Medical Diagnosis: Generalized weakness s/p extended hospital admissions/transfers. Physical Therapy Evaluation Date: 06/14/18 SUBJECTIVE: Prior Hospitalization: [facility] 05/29/18-06/04/18. [facility] E[facility] 06/04/18 thru 06/07/18. [facility] 06/07/18 thru 06/14/18 for pneumonia. Return to [facility] 06/14/18 for continued skilled care and rehab. Prior Level of Function: Pt previously living alone but was unable to adequately care for herself. Pt plans to discharge to her daughter's home but her daughter does work during daytime house. Prior Living Status: Alone/see above Community Services: No known needs Home Accessibility: Pt's daughter's home has a reported 6 then 6 stairs to enter. Equipment Owned: Rollator Medical Complications/Past Medical History: Please see GRAYL Psychosocial Support: supportive daughter Pain Scale (0-10): Pt reports generalized all over pain at 2/10. No pain at wound site. OBJECTIVE: Strength: grossly 3/5. ROM: (please note any abnormalities) noted ulnar deviation of all fingers and toes. Sensation: (please note any abnormalities) Absent in B feet Bed Mobility: not observed during eval Transfers: Minimum assistance, CGA Assistive Device: Front wheeled walker Gait: CGA x 150' with fatigue reported at end of walk Assistive device: Front wheeled walker Stairs: not tested Timed Up and Go (>12 seconds indicated increased risk for falls): 31.4 seconds Wound: L foot plantar surface at 2nd MTP joint: 1.0cm length x 0.7cm width x 0.2cm depth and 100% granulation tissue. Ju-wound callused. ASSESSMENT: Pt presents with decreased independence with functional mobility and decreased tolerance to functional activity. Pt will benefit from skilled PT for strengthening, functional mobility and safety training, and endurance training in order to tolerate activities of daily living. Problem List/Current Limitations: Decreased activity tolerance, Decreased strength, Decreased sensation, Decreased balance, Generalized weakness, Memory deficits, Confusion, Shortness of breath Short Term Goals: 1. Mod I bed mobility. 2. Mod I transfers. 3. Mod I gait x 150' with appropriate assistive device. 4. Ascend/descend 12 stairs CGA. 5. Improve TUG to less than/equal to 29 seconds as indicator of improved safety with functional mobility. Print Line Feeder Goals: discharge to daughter's home Patient Goals: discharge to daughter's home Rehabilitation Prognosis: Fair Barriers for Discharge: Medical complications since initial admission. PLAN: The patient will benefit from skilled physical therapy services 5 times per week for 2 weeks including: Therapeutic Exercise, Therapeutic Activities, Transfer Training, Gait Training, Stair Training, Manual Therapy, ADL's, Safety Training, Neuromuscular Re-educ., Wound Care, Pt/Caregiver Training, Bed Mobility Thank you for this referral. If you have any questions, concerns, or comments about this report or plan, please contact me at . aHiley Gomez, PT, DPT, GCS MTDD
--- NOTE | 2018-06-14 14:53 | NUR ---
Physical Therapy Impression PT eval complete. Please see EMR Other Reports for details. Wound evaluated and debrided. Wound dressed with alginate and silicone boarded dressing. PT to follow for debridement 2x/wk (likely Tuesdays and Fridays). Physical Therapy Goals 1. Mod I bed mobility. 2. Mod I transfers. 3. Mod I gait x 150' with appropriate assistive device. 4. Ascend/descend 12 stairs CGA. 5. Improve TUG to less than/equal to 29 seconds as indicator of improved safety with functional mobility. Patient's Goals
[2018-06-14] MEDS: WARFARIN SOD 1 MG TAB PO SCH (15:11)
[2018-06-14] MEDS: POLYSACCHARIDE IRON COM 150 MG PO SCH (17:05)
[2018-06-14 17:15] VITALS: BP 109/73
[2018-06-14] MEDS: guaiFENesin 600 MG TABCR PO SCH (20:33)
[2018-06-15] MEDS: ALBUTEROL/IPRATROPIUM 3 ML NEB NEB SCH ×5 (00:28→23:44)
[2018-06-15] MEDS: LEVOTHYROXINE SOD 0.088 MG TAB PO SCH (06:04)
[2018-06-15 06:53] LABS: INR 2.14
[2018-06-15 07:52] VITALS: BP 127/68
[2018-06-15] MEDS: SPIRONOLACTONE 25 MG TAB PO SCH (08:47)
[2018-06-15] MEDS: guaiFENesin 600 MG TABCR PO SCH ×2 (08:48→21:01)
[2018-06-15] MEDS: POLYSACCHARIDE IRON COM 150 MG PO SCH ×2 (08:48→17:24)
[2018-06-15] MEDS: FOLIC ACID 1 MG TAB PO SCH (08:48)
[2018-06-15] MEDS: BETA-CAROTENE(A) & E/MIN TAB PO SCH (08:48)
[2018-06-15] MEDS: FUROSEMIDE 40 MG TAB PO SCH (08:50)
[2018-06-15] MEDS: WARFARIN SOD 1 MG TAB PO SCH (12:20)
[2018-06-15] MEDS: CALCIUM CARBONATE/VITAMIN D3 PO SCH ×2 (12:21→17:24)
[2018-06-15 15:50] VITALS: BP 129/70
[2018-06-16] MEDS: ALBUTEROL/IPRATROPIUM 3 ML NEB NEB SCH ×3 (05:32→18:03)
[2018-06-16] MEDS: LEVOTHYROXINE SOD 0.088 MG TAB PO SCH (06:30)
[2018-06-16 07:15] LABS: INR 1.79
[2018-06-16 08:20] VITALS: BP 93/59
[2018-06-16] MEDS: guaiFENesin 600 MG TABCR PO SCH (08:51)
[2018-06-16] MEDS: FOLIC ACID 1 MG TAB PO SCH (08:52)
[2018-06-16] MEDS: SPIRONOLACTONE 25 MG TAB PO SCH (08:52)
[2018-06-16] MEDS: POLYSACCHARIDE IRON COM 150 MG PO SCH ×2 (08:52→17:00)
[2018-06-16] MEDS: BETA-CAROTENE(A) & E/MIN TAB PO SCH (08:52)
[2018-06-16] MEDS: FUROSEMIDE 40 MG TAB PO SCH (08:55)
[2018-06-16 12:10] VITALS: BP 102/54
[2018-06-16] MEDS: CALCIUM CARBONATE/VITAMIN D3 PO SCH ×2 (12:33→17:00)
[2018-06-16] MEDS ORDERED: WARFARIN SOD 1 MG TAB PO ONE (13:20)
[2018-06-16] MEDS ORDERED: WARFARIN SOD 2 MG TAB PO ONE (13:40)
[2018-06-16] MEDS: ENOXAPARIN 100 MG/ML SYR SC SCH (13:52)
[2018-06-16] MEDS ORDERED: INSULIN HUM LISPRO 100 UN/ML 3 ML VIAL SUBQ PRN (14:00)
--- NOTE | 2018-06-16 14:07 | Hospitalist Progress Note ---
Subjective Progress Notes Subjective Staff concerned that the patient required O2 during the night and is tachypneic. Also, the patient has developed a diffuse rash. The patient is without complaints. She denies sensation of itching or SOB. Physical Exam Vital Signs Date Time Temp Pulse Resp B/P (MAP) Pulse Ox O2 Delivery O2 Flow Rate FiO2 06/16/18 12:10 98.6 78 32 102/54 (70) 90 Room Air 06/16/18 08:20 2.0 Intake and Output 06/16/18 07:00 Intake Total 360 ml Balance 360 ml Intake Oral 360 ml # Voids 8 # Bowel Movements 8 General Appearance: Alert, Awake, No Acute Distress (Breathing comfortably) Respiratory: Clear to Auscultation (but has a wet cough with deep breathing.) Extremities: Edema (2+ pitting in shins bilaterally) Integumentary: Other (diffuse erythematous mild macular rash on abd and low back that apparently is worse in the groin) Assessment and Plan Problems: (1) Rash Status: Acute Assessment & Plan: Diffuse macular erythematous rash in the groin/abd/low back. It is mild and non-pruritic. Pharmacy review inpt vs outpt meds and recommended stopping Mucinex, so that has been done. Will follow. (2) Pneumonia Status: Acute Assessment & Plan: She did have increased congestion and shortness of breath. Her x-ray suggested a left sided infiltrate with associated pleural effusion. She was started on empiric treatment with IV Primaxin. She has completed 7 days of antibiotic therapy. Cultures have been negative. She is currently on room air, but has a wet cough. Will follow symptoms. 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 Dr. Orantes has been following her as an outpatient. Purulent discharge was noted on initial evaluation and a wound culture has grown MRSA. A plain film was negative for osteomyelitis. Physical therapy is providing wound care. She was initially started on vancomycin and levofloxacin, but was transitioned to just vancomycin. She has completed a total 14 days therapy. (4) Weakness Status: Acute Assessment & Plan: She has had more falls at home. She had lost about 5 pounds in the last 12 days prior to admission. Prealbumin low at 16.7. OT/PT are following the patient. Will continue on SHANANN to ensure adequate calorie intake and also encouraged protein intake. Recheck prealbumin. (5) Atrial fibrillation, controlled Status: Chronic Assessment & Plan: She was on chronic treatment with digoxin and warfarin. The digoxin was held secondary to bradycardia (HR in the 30's while sleeping) and concerns that it might be contributing to her falls. Her rate is controlled off the digoxin and she is no longer having the bradycardia. Looking back at EMR outpatient visits, her usual dose is 1.5mg daily x 6 days per week and 2mg once per week. She did come in supra-therapeutic. Her INR is low on 1.5mg a day. Change to 2mg and start Lovenox to bridge. (6) Mitral valve replaced Status: Chronic Assessment & Plan: INR goal is 2.5-3.5. See above. (7) Type 2 diabetes mellitus without complications Status: Chronic Assessment & Plan: Metformin held secondary to ARF and normal BS. She is currently on diet as tolerated secondary to the weight loss. AC and HS glucose. So far, she has not required insulin dosing per sliding scale. Will continue to hold metformin. (8) Anemia Status: Chronic Assessment & Plan: Iron studies show a low iron level (on Niferex bid). Ferritin is normal, but can be due to acute inflammation. Stool is positive for occult blood. She did receive 2 units of red cells on 06/08. She has to be on anticoagulation secondary to the MV and the high stroke risk. Might need to consider EGD/colonoscopy if worsening. Will start PPI. Will check B12 and Folate. Will monitor closely. (9) Rheumatoid arthritis Status: Chronic Assessment & Plan: She is chronically on methotrexate, which we was held due to active infection. Might need to restart soon. DHRUV VILLASENOR MD Jun 16, 2018 14:07
[2018-06-16] MEDS: PANTOPRAZOLE SOD 40 MG TABEC PO SCH (14:29)
[2018-06-16 15:41] VITALS: BP 96/53
[2018-06-16 16:35] VITALS: BP_SYST 88; BP_SYST 89; BP_DIAS 44
[2018-06-16] MEDS: ACETAMINOPHEN 325 MG TAB PO PRN (16:46)
[2018-06-16 17:29] LABS: PLATELET COUNT, AUTOMATED 224 K/uL (150-450)
[2018-06-16] MEDS ORDERED: LEVOFLOXACIN/D5W 750 MG/150 ML 150 ML IVPB SCH (18:00)
[2018-06-16] MEDS ORDERED: NS(*) 0.9% 250 ML BAG 250 ML IV PRN (18:20)
[2018-06-16] MEDS: LEVOFLOXACIN/D5W 750 MG/150 ML 150 ML IVPB SCH (18:38)
--- NOTE | 2018-06-16 18:59 | RADIOLOGY IMAGING REPORT ---
FACILITY: [facility] PATIENT NAME: Kinsey Hwang : 1935 MR: [id number] V: [id number] EXAM DATE: ORDERING PHYSICIAN: DHRUV VILLASENOR TECHNOLOGIST: Location: [facility] [place] Patient: Kinsey Hwang : 1935 Visit/Account:[id number] Date of Sevice: 06/16/2018 EXAMINATION: Portable AP Chest 06/16/2018 4:56 PM HISTORY: hypoxia COMPARISON: 06/12/2018 FINDINGS: Cardiomediastinal contours: Persistent cardiomegaly. Aorta is atherosclerotic. Prior sternotomy with MVR. Lungs and pleura: Vasculature is engorged and indistinct with mild interstitial prominence, progresse d from previous. No substantial effusions and the cast phrenic angles are better defined than on the prior. Bones/soft tissues: Sternotomy wires are intact. PICC catheter enters from the left with the tip over the cavoatrial junction, unchanged. IMPRESSION: 1. Prior sternotomy with MVR. Atherosclerosis. 2. Cardiomegaly with mildly increasing pulmonary edema. Diminishing effusions comparing with 06/12/2017 . Report Dictated By: Reynaldo Quach MD at 06/16/2018 6:52 PM Report E-Signed By: Reynaldo Quach MD at 06/16/2018 6:56 PM WSN:[id number]
[2018-06-16] MEDS ORDERED: VANCOMYCIN(*) 1 GM VIAL 1 GM, VANCOMYCIN (*) 0.5 GM VIAL 0.25 GM in NS(*) 0.9% 250 ML B... IVPB ONE (20:00)
--- NOTE | 2018-06-16 20:12 | Miscellaneous Provider Note ---
Miscellaneous Provider Note Note The patient is without complaints. She denies SOB and feels like her cough is better. She had a fever to 102 degrees and a BP of 88/44. HR is 74. No more episodes of choking. Left foot wound has no surrounding erythema and base appears clear. CXR - 1. Prior sternotomy with MVR. Atherosclerosis. 2. Cardiomegaly with mildly increasing pulmonary edema. Diminishing effusions comparing with 06/12/2017. Item Value Date Time Lactate 1.6 mmol/L 06/16/18 1714 Total Bilirubin 1.8 mg/dl H 06/16/18 1714 Aspartate Amino Transf (AST/SGOT) 30 U/L 06/16/18 1714 Alanine Aminotransferase (ALT/SGPT) 37 U/L 06/16/18 1714 Alkaline Phosphatase 74 U/L 06/16/18 1714 Sodium Level 134 mmol/L L 06/16/18 1714 Chloride Level 97 mmol/L L 06/16/18 1714 Carbon Dioxide Level 33 mmol/L H 06/16/18 1714 Blood Urea Nitrogen 33 mg/dl H 06/16/18 1714 Creatinine 1.00 mg/dl 06/16/18 1714 Potassium Level 3.7 mmol/L 06/16/18 1714 Total Protein 4.5 g/dl L 06/16/18 1714 Albumin 2.7 g/dl L 06/16/184 White Blood Count 6.9 k/uL 06/16/18 1714 Hemoglobin 10.6 g/dL L 06/16/18 1714 Hematocrit 32.6 % L 06/16/18 1714 Neutrophils (%) (Auto) 78.1 % H 06/16/18 1714 Lymphocytes (%) (Auto) 8.8 % L 06/16/18 1714 Monocytes (%) (Auto) 11.6 % 06/16/18 1714 Eosinophils (%) (Auto) 0.0 % L 06/16/18 1714 Basophils (%) (Auto) 1.5 % H 06/16/18 1714 Platelet Count 224 K/uL 06/16/18 1714 Urine RBC 1 /HPF 06/16/18 1800 Urine WBC <1 /HPF 06/16/18 1800 Urine Squamous Epithelial Cells None /LPF 06/16/18 1800 Urine Leukocyte Esterase Negative 1/6/19 1800 Urine Urobilinogen Negative mg/dL 06/16/18 1800 Urine Bilirubin Negative 06/16/18 1800 Urine Nitrite Negative 06/16/18 1800 She has a fever, intermittent hypoxia and a low normal BP. WBC wnl. CXR relatively unchanged but a possible RLL . UA wnl. Blood cultures were drawn from the PICC and peripherally. Levofloxacin was started for concern of an aspiration pneumonia (she had a choking incident 2 days ago). Vancomycin started because of the concern of osteomyelitis (previously grew MRSA from foot) and will get an MRI of the foot tomorrow and CRP. She apparently had about 700cc of urine with the straight cath, so will check a PVR and place a Carr if needed. Holding Lasix and Spironolactone because she appears to be overly diuresed with the lowish BP and elevated BUN. She still has some pitting edema so will check a BNP in the morning. The rash is reportedly a bit more extensive. Will follow. DHRUV VILLASENOR MD Jun 16, 2018 20:12
[2018-06-16 21:00] VITALS: BP 83/46
[2018-06-16 21:14] VITALS: BP 82/42
[2018-06-16] MEDS ORDERED: NS(*) 0.9% 500 ML BAG 500 ML IV ONE (21:20)
[2018-06-17 00:17] VITALS: BP 110/60
[2018-06-17] MEDS: ENOXAPARIN 100 MG/ML SYR SC SCH ×2 (00:32→12:30)
[2018-06-17] MEDS: ALBUTEROL/IPRATROPIUM 3 ML NEB NEB SCH ×3 (05:17→17:10)
[2018-06-17 06:22] VITALS: BP 88/52
[2018-06-17] MEDS: LEVOTHYROXINE SOD 0.088 MG TAB PO SCH (06:38)
[2018-06-17 07:22] LABS: INR 2.06
[2018-06-17 07:30] VITALS: BP 88/68
[2018-06-17] MEDS ORDERED: SPIRONOLACTONE 25 MG TAB PO SCH (09:00)
[2018-06-17] MEDS ORDERED: FUROSEMIDE 40 MG TAB PO SCH (09:00)
[2018-06-17] MEDS: POLYSACCHARIDE IRON COM 150 MG PO SCH ×2 (09:05→17:47)
[2018-06-17] MEDS: PANTOPRAZOLE SOD 40 MG TABEC PO SCH (09:05)
[2018-06-17] MEDS: FOLIC ACID 1 MG TAB PO SCH (09:05)
[2018-06-17] MEDS: BETA-CAROTENE(A) & E/MIN TAB PO SCH (09:05)
[2018-06-17] MEDS: CALCIUM CARBONATE/VITAMIN D3 PO SCH ×2 (12:30→17:46)
[2018-06-17] MEDS: WARFARIN SOD 2 MG TAB PO SCH (12:30)
[2018-06-17] MEDS ORDERED: VANCOMYCIN HCL(*) 0.750 GM ADD 0.75 GM in NS(*) 0.9% 250 ML ADDVAN BAG 250 ML IVPB SCH (14:00)
--- NOTE | 2018-06-17 14:49 | Miscellaneous Provider Note ---
Miscellaneous Provider Note Note Pt is looking better today, rash is scattered fine rash across whole body. MRI is unable to be performed due to her mechanical mitral valve. Will get 3 phase bone scan after discussion with radiology. Stopped vancomycin for now unless demonstration of osteomyelitis in foot. May continue levofloxacin through next dose which would give 4 days total therapy. Would like to restart methotrexate as her CRP elevation could be solely in response to RA activity increase. NIRANJAN PARRA DO Jun 17, 2018 14:49
--- NOTE | 2018-06-17 15:14 | SLP BEDSIDE SWALLOW EVALUATION ---
SPEECH THERAPY ASSESSMENT Ordering Physician: Elvin Mohan Clinician: Rachel Crawford MS, [facility] TECHNICIAN Type of Assessment: Bedside Dysphagia Evaluation Patient: Kinsey Hwang : [birth year] Evaluation Date: 06/17/18 BACKGROUND The patient is an 82 year old female admitted to [facility] following hospitalization from 05/29-06/04/18 for acute renal failure, weakness, and a L foot wound. During hospitalization, the pt developed increased work of breathing, and was diagnosed with pneumonia. Per medical record, the pt experienced a choking episode in the dining room on 06/16/18. She was previously evaluated by a speech- language pathologist in the [facility] in August of 2011 due to concerns for dysphagia. The pts symptoms were found to be consistent with esophageal dysfunction, and an esophagram was recommended. Esophagram illustrated evidence of presbyesophagus, mild esophageal residue, and a small hiatal hernia. Penetration was also observed with barium liquid; however, penetration is often considered a normal swallow deviation in older adults. An ST evaluation was ordered to analyze oropharyngeal swallow structure and function, and to develop recommendations for potential diet texture modifications, aspiration precautions, and compensatory strategies. Primary Medical Diagnosis: pneumonia Pain Scale (0-10): none reported; appears comfortable. LOC / Participation: Alert and cooperative. Follows instructions: Yes. Orientation: A&O x4 Functional Communication Deficits impact swallow function/safety, or response to therapy: No; however, the pt may benefit from intermittent supervision/reminders during participation in meals as a result of maladaptive self-feeding patterns DYSPHAGIA Sialorrhea: No Xerostomia: No. Hygiene: WFL Supplemental Oxygen Use: Yes. Respiratory Rate: Variable. Increased work of breathing during mastication of solids. COPD Dx: No. Pain with Swallow: Denies. Oropharyngeal Structure and Function: Oromotor exam was unremarkable w/ adequate strength, speed, coordination, and ROM of all oral musculature. Structures intact. Hyolarygneal elevation and excursion subjectively adequate to palpation. Deep, wet, congested cough at baseline. Administered PO trials of ice chips, thin liquids via cup sip and straw, pureed solids, and regular solids. Overall, oral and pharyngeal phases of swallow are WFL for normal PO intake. Pt w/ appropriate mastication time, adequate bolus formation, timely a-p transit, and clearance of material from oral cavity. Pharyngeally, pt exhibited timely swallow initiation and no overt s/sx of aspiration across PO trials. Of note, pt demonstrated some impulsive behaviors w/ rapid consumption of solids despite visibly increased work of breathing during mastication phase. Pt responded to cues for decreased rate of intake, and may benefit from intermittent reminders to take breaks for respiration and oropharyngeal clearance. Decreased coordination noted between respiration and deglutition as a result of compromised respiratory status and elevated O2 needs. ST ASSESSMENT SUMMARY Aspiration Risk: Mildly elevated. Negative prognositic indicators maladaptive feeding pattern/impulsivity paired with compromised respiratory status and elevated O2 needs. Known hx of esophageal dysphagia may further elevate risk for reflux aspiration and difficulty with passage through PES. Speech Therapy Need Brief course of skilled ST interventions, 2x/wk for [address] will continue to analyze swallow status and evolve diet recommendations, compensatory strategies, and aspiration precautions as appropriate. ST will also continue to provide patient and staff education re: aspiration precautions and safe swallow strategies to minimize risk for further respiratory compromise. RECOMMENDATIONS 1. Diet: Regular, thin liquids. 2. Medications: Whole, ok with thin liquids. 3. Compensatory Techniques: regular oral hygiene, upright positioning during PO intake, cues to consume small bites/sips, one bite/sip at a time, take rest breaks for respiration. 4. Supervision with meals/snacks: Offer intermittent reminders for swallow safety and continue to monitor impulsive behaviors during PO intake. POC 1. Patient will execute compensatory swallow strategies and adhere to safe swallow precautions with min verbal/visual cues during participation in mealtime activities. 2. The patient will safely and efficiently tolerate regular diet and thin liquids with independent implementation of safe swallow strategies and no s/s of aspiration. Prognosis: good, no previously reported history of aspiration pneumonia, high prior level of PO intake Thank you for this referral. Rachel Crawford M.S., [facility] TECHNICIAN Speech Therapist Physician Signature Date Speech Therapy Need Thank you for this referral. Rachel Crawford M.S., [facility] TECHNICIAN Speech Therapist Physician Signature Date [*] MTDD
--- NOTE | 2018-06-17 15:15 | NUR ---
Bedside Dysphagia Evaluation Summary Please see full report for detailed information. Overall, oral and pharyngeal phases of swallow are WFL for normal PO intake. Impulsive self-feeding behaviors noted w/ rapid consumption of solids despite visibly increased work of breathing during mastication phase. Pt responded to cues for decreased rate of intake, and may benefit from intermittent reminders to take breaks for respiration and oropharyngeal clearance. Decreased coordination noted between respiration and deglutition as a result of compromised respiratory status and elevated O2 needs. ST ASSESSMENT SUMMARY Aspiration Risk: Mildly elevated. Negative prognostic indicators: maladaptive feeding pattern/impulsivity paired with compromised respiratory status and elevated O2 needs with heightened risk for inhalation of food/liquids. Known hx of esophageal dysphagia may further elevate risk for reflux aspiration and difficulty with passage through PES. RECOMMENDATIONS 1. Diet: Regular, thin liquids. 2. Medications: Whole, ok with thin liquids. 3. Compensatory Techniques: regular oral hygiene, upright positioning during PO intake, cues to consume small bites/sips, one bite/sip at a time, take rest breaks for respiration. 4. Supervision with meals/snacks: Offer intermittent reminders for swallow safety and continue to monitor impulsive behaviors during PO intake. POC 1. Patient will execute compensatory swallow strategies and adhere to safe swallow precautions with min verbal/visual cues during participation in mealtime activities. 2. The patient will safely and efficiently tolerate regular diet and thin liquids with independent implementation of safe swallow strategies and no s/s of aspiration.
[2018-06-17 16:45] VITALS: BP 94/48
[2018-06-18] MEDS: ENOXAPARIN 100 MG/ML SYR SC SCH (00:08)
[2018-06-18] MEDS: ALBUTEROL/IPRATROPIUM 3 ML NEB NEB SCH ×3 (05:20→17:11)
[2018-06-18 05:57] VITALS: BP 100/42
[2018-06-18] MEDS: ACETAMINOPHEN 325 MG TAB PO PRN (05:58)
[2018-06-18] MEDS: LEVOTHYROXINE SOD 0.088 MG TAB PO SCH (05:58)
[2018-06-18 06:15] LABS: INR 2.4
[2018-06-18] MEDS: FOLIC ACID 1 MG TAB PO SCH (08:53)
[2018-06-18] MEDS: PANTOPRAZOLE SOD 40 MG TABEC PO SCH (08:53)
[2018-06-18] MEDS: POLYSACCHARIDE IRON COM 150 MG PO SCH ×2 (08:53→17:32)
[2018-06-18] MEDS: BETA-CAROTENE(A) & E/MIN TAB PO SCH (08:53)
--- NOTE | 2018-06-18 10:34 | NUR ---
Occupational Therapy Impression SBA ambulation [id number] with RW. UB ther ex HEP. Min A LB dressing with AE. Min A supine to sit. Pt reports feeling much improved this date, consistent with progression towards goals. Continue POC. Occupational Therapy Goals 1) Pt to perform shower activities with Min A. 2) Pt to perform toileting activities with Mod I. 3) Pt to perform dressing activities with Min A. 4) Pt to perform grooming activities with [place]. 5) Pt Imca Index of ADLs score to improve by 2 points. Patient's Goal
--- NOTE | 2018-06-18 10:52 | ECF H&P BLANK ---
Transfer Summary ([facility]) Problems: (1) Pneumonia Status: Acute Assessment & Plan: She did have increased congestion and shortness of breath. Her x-ray suggested a left sided infiltrate with associated pleural effusion. She was started on empiric treatment with IV Primaxin. She has completed 7 days of antibiotic therapy. Cultures have been negative. 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 Dr. Orantes has been following her as an outpatient. Purulent discharge was noted on initial evaluation and a wound culture has grown MRSA. A plain film was negative for osteomyelitis. Physical therapy is providing wound care. She was initially started on vancomycin and levofloxacin, but was transitioned to just vancomycin. She has completed a total 14 days therapy. (3) ARF (acute renal failure) Status: Acute Assessment & Plan: She presented with weakness and falls. Her creatinine was elevated to 2.0 from her baseline of 1.2-1.5. Secondary to dehydration that was exacerbated by furosemide and spironolactone. Her creatinine has improved to 1.0. She did have some increased edema. The spironolactone and Lasix were restarted. Her creatinine has remained in normal range. (4) Weakness Status: Acute Assessment & Plan: She has had more falls at home. She had lost about 5 pounds in the last 12 days prior to admission. Prealbumin low at 16.7. OT/PT are following the patient. Will continue on SHANNAN to ensure adequate calorie intake and also encouraged protein intake. She will be transferred back to [facility] for o ngoing acute rehab. (5) Hematoma Status: Acute Assessment & Plan: She did have a large hematoma on the left outer thigh. Her Hgb/Hct dropped after admission. She was transfused and her Hgb improved to 9.1 but has gradually decreased down once again to 7.8. She is on anticoagulation therapy with Coumadin/Lovenox, but no evidence of overt bleeding. She does have chronic RA. Her iron studies do show some decreased iron saturation. Will start low dose iron replacement. Will need to consider GI workup in near future - once acute illness has improved/resolved. (6) Atrial fibrillation, controlled Status: Chronic Assessment & Plan: She was on chronic treatment with digoxin and warfarin. The digoxin was held secondary to bradycardia (HR in the 30's while sleeping) and concerns that it might be contributing to her falls. Her rate is controlled off the digoxin and she is no longer having the bradycardia. Looking back at EMR outpatient visits, her usual dose is 1.5mg daily x 6 days per week and 2mg once per week. She did come in supra-therapeutic. She was restarted at 1.5mg daily, but her INR has climbed into "upper" therapeutic range - warfarin is currently on hold and watching daily INR. (7) Mitral valve replaced Status: Chronic Assessment & Plan: INR goal of 2.5-3.5. Her INR is 2.8 today - warfarin will be resumed today. Daily INR monitoring. She has also gradually dropped her hemoglo bin so will need to watch closely for signs of bleeding. (8) Type 2 diabetes mellitus without complications Status: Chronic Assessment & Plan: Metformin held secondary to ARF and normal BS. She is currently on diet as tolerated secondary to the weight loss. AC and HS glucose. So far, she has not required insulin dosing per sliding scale. Will continue to hold metformin. (9) Rheumatoid arthritis Status: Chronic Assessment & Plan: She is chronically on methotrexate, which we will hold for now due to active infection. (10) Acquired hypothyroidism Status: Chronic Assessment & Plan: TSH was low at 0.03 on 03/01/18. TSH is 0.88 now. Continue chronic replacement for now. (11) Neuropathy, idiopathic Status: Chronic Assessment & Plan: Chronic. (12) Anemia Assessment & Plan: Iron studies show a low iron level (start low dose iron). Ferritin is normal, but can be due to acute inflammation. B12 level is borderline low. Methylmalonic acid is pending. Stool is positive for occult blood. She did receive 2 units of red cells. Will monitor closely. Latest Vital Signs Vital Signs Date Time Temp Pulse Resp B/P (MAP) Pulse Ox O2 Delivery O2 Flow Rate FiO2 06/14/18 07:25 98.6 86 20 130/85 (100) 93 Room Air 06/10/18 11:02 Result Diagram: 06/14/18 0547 06/14/18546 Condition: Improved Disposition: SNF/NH Treatment Goals and Plan Patient requires jail for End of Life Care/Comfort Care and is ready for admission to Extended Care. Any change in condition is described below. Services Required: PT, OT Copies To 1: KACIE MENDES MD ; Problem Qualifiers (1) Pneumonia: Pneumonia type: due to unspecified organism LARRY JAVIER Jun 14, 2018 10:35 <Electronically signed by REMIGIO TOWNSEND> D/ [id number] CONSTANTIN/MAXX CC: KACIE MENDES MD [facility]
--- NOTE | 2018-06-18 11:01 | Medical Nutrition Therapy ---
Nutrition Anthropometrics Height (Inches): 5.00 Height (Calculated Centimeters: 12.930820 Weight (Pounds): 114 Weight (Calculated Kilograms): 51.936 Jackson Nutrition Score: Probably Inadequate Jackson Nutrition Risk Score: 16 Dietary Referral Nutrition Risk Factors: Unplanned Loss >10lbs Nutrition Risk Comment: States weighed 118# before this hospitalization Nutritional Diagnosis Nutritional Risk Acuity 2: Abcess/Non-Healing Wound Nutritional Risk Acuity 3: Fair Appetite Past Medical History: T2DM, RA, CHF, Neuropathy Nutrition Diagnosis: Increased Nutrient Needs Nutrition Etiology: Physiological Causes Nutrition Problem/Etiology/Sym: Increased Nutrient Needs (Protein) related to Increased demand for nutrient, e.g., wound healing AEB low albumin status indicating increased stress and increased metabolic needs. Energy Requirement: 1550 (M- STJx 1.7) Protein Requirement: 71 (1.5GM/KG) Fluid Requirement: 1200 (25ML/KG) Diet Type: Diabetic Drug: Warfarin Do Not Serve Any of the Follow: Broccoli, [place] Sprouts, Spinach, [place] Lettuce, Cranberry Juice Additional Diet Restrictions: OFFER SF NUTR SUPPLMENT Nutrition Monitoring & Eval Nutrition Goals: Eat 75-100% Meal Nutrition Follow-Up: Fair Intake RD Patient Assessment Time: [address] Assessment Type: RD Re-Assessment Patient Nutrition Acuity: 2-Moderate Follow Up Date: Jun 25, 2018 Nutritional Comment: 06/14 Pt readmitted from med unit. Pt on ADA diet and was eating 53 % of small to regular portion on med unit. Will cont to offer nutr supplment to increase kcal and protein intake. Wt was 105# 05/30. Current wt 123# with 3+ edema LE ( up 17%). Anticipate wt loss when edema resolved. Pt is on K+ sparing duiretic. K+ is WNR at 3.8. BG ranging 80-170's. alb 2.5 Will cont to monitor and encourage intake. BK 06/18 Pt lost to 114#. Pt is no longer on duiretic. Edema down to 2+ from 3+. pt may demonstrated additional wt loss when edema resolved. Pt is on warfarin. Will avboid high K+ foods. Alb 2.7, cont low but has improved. SPL recommends no diet modification following eval. Intake average 85% of small portions with occasional nutr supplements. Will cont to monitor and encourage intake. PARTH MCFARLAND Jun 18, 2018 11:01
[2018-06-18] MEDS: CALCIUM CARBONATE/VITAMIN D3 PO SCH ×2 (12:20→17:32)
[2018-06-18] MEDS: WARFARIN SOD 2 MG TAB PO SCH (12:20)
--- NOTE | 2018-06-18 13:57 | Antimicrobial Stewardship ---
Antimicrobial Time Out Antimicrobial Stewardship MD Service: Hospitalist Indications: CAP Antimicrobial Used LEVAQUIN 750MG q48H Start Date: Jun 16, 2018 Culture Results: No Eligible for PO Conversion Eligable for PO Conversion: Yes Reviewed with Provider Reviewed w/ Provider on Rounds: No Comments Comments STARTED ON LEVAQUIN RENAL DOSE FOR NEW PNEUMONIA CONCERN, INCREASED RESPIRATORY NEEDS AND WET COUGH RONNY OTT Jun 18, 2018 13:57
--- NOTE | 2018-06-18 14:15 | NUR ---
Physical Therapy Impression Pt with improved tolerance to functional mobility today. SBA for xfers at beginning of session, pt requiring CGA at end of session d/t faitgue. PT instructed patient in stair negotiation with emphasis on step to gait, pt attempted step through pattern with increased difficulty. x4 stairs completed with close CGA. PT instruction for standing LE ther-ex in order to improve LE strength for functional tasks, pt with good tolerance. Wound demonstrates a decrease in size, but does probe to a depth of 0.6 cm with a hard end feel. Periwound skin demonstrates callous build up with slight maceration. PT completed conservative, selective debridement of non-viable tissue and slough with tweezers to the depth of the subcutaneous tissue with the goal to bevel wound edges. Wound gently packed with calcium alginate with silver and covered with a silicone bordered dressing. Physical Therapy Goals 1. Mod I bed mobility. 2. Mod I transfers. 3. Mod I gait x 150' with appropriate assistive device. 4. Ascend/descend 12 stairs CGA. 5. Improve TUG to less than/equal to 29 seconds as indicator of improved safety with functional mobility. Patient's Goals
[2018-06-18 15:35] VITALS: BP 104/52
[2018-06-18] MEDS: LEVOFLOXACIN/D5W 750 MG/150 ML 150 ML IVPB SCH (18:04)
--- NOTE | 2018-06-18 22:25 | RADIOLOGY IMAGING REPORT ---
FACILITY: [facility] PATIENT NAME: Kinsey Hwang : 1935 MR: [id number] V: [id number] EXAM DATE: ORDERING PHYSICIAN: NIRANJAN CHAPMAN TECHNOLOGIST: Location: [facility] Patient: Kinsey Hwang : 1935 Visit/Account:[id number] Date of Sevice: 06/17/2018 3 PHASE BONE SCINTIGRAPHY OF THE FEET. DATE OF SERVICE: 06/17/2018 14:26 INDICATION: Sore on the bottom of the left foot. Evaluate for osteomyelitis. COMPARISON: Left foot radiographs 05/29/2018. RADIOPHARMACEUTICAL: 24.7 mCi [id number] PROCEDURE: Serial (perfusion) images were obtained during first circulation of the tracer followed im mediately by an extracellular space (blood pool) image. Two to 4 hours after radionuclide administration, (delayed) planar images in the anterior and posteri or projections were obtained. FINDINGS: Perfusion images demonstrate possible slightly asymmetrically increased flow to the distal aspect of the left foot compared to the right. The blood pool images show asymmetric increased activity in the region of the left 2nd toe. Delayed images show foci of increased activity in the region of the metatarsal phalangeal joints bila terally, slightly greater on the left at the 1st and 2nd toes. IMPRESSION: Nonspecific findings with possible slightly increased flow to the left foot distally, inc reased uptake on blood pool images in the region of the left 2nd toe, and increased uptake bilaterall y in the metatarsal-phalangeal joints, the asymmetrically increased on the left. These could be rela jena to suspected erosive arthropathy seen on the prior radiographs, though osteomyelitis is also a co nsideration, particularly of the left 2nd toe location. Correlate with location of the reported woun d, and consider follow-up radiographs or further evaluation with MRI. Report Dictated By: Edward Ramos MD at 06/18/2018 10:09 PM Report E-Signed By: Edward Ramos MD at 06/18/2018 10:21 PM WSN:[id number]
[2018-06-19] MEDS: ALBUTEROL/IPRATROPIUM 3 ML NEB NEB SCH ×2 (05:34→12:23)
[2018-06-19] MEDS: LEVOTHYROXINE SOD 0.088 MG TAB PO SCH (06:32)
[2018-06-19 07:08] LABS: INR 1.85
[2018-06-19 08:00] VITALS: BP 97/58
[2018-06-19] MEDS: PANTOPRAZOLE SOD 40 MG TABEC PO SCH (08:42)
[2018-06-19] MEDS: POLYSACCHARIDE IRON COM 150 MG PO SCH (08:42)
[2018-06-19] MEDS: BETA-CAROTENE(A) & E/MIN TAB PO SCH (08:42)
[2018-06-19] MEDS: FOLIC ACID 1 MG TAB PO SCH (08:42)
--- NOTE | 2018-06-19 12:47 | NUR ---
Physical Therapy Impression Pt initially agreeable to PT tx but had decreased tolerance to activity and requested to return to her room shortly after initiating therapy. SO2 100% on 2 L, HR 90s. Pt reports feeling fatigued. Pt required Mod A to stand from chair and wheelchair and CGA to ambulate 60' with RW and O2. Pt reports swollen LEs. Pt reports passed along to nursing who is aware. Physical Therapy Goals 1. Mod I bed mobility. 2. Mod I transfers. 3. Mod I gait x 150' with appropriate assistive device. 4. Ascend/descend 12 stairs CGA. 5. Improve TUG to less than/equal to 29 seconds as indicator of improved safety with functional mobility. Patient's Goals
[2018-06-19] MEDS: CALCIUM CARBONATE/VITAMIN D3 PO SCH (12:50)
[2018-06-19] MEDS: WARFARIN SOD 2 MG TAB PO SCH (12:50)
--- NOTE | 2018-06-19 15:14 | Hospitalist Progress Note ---
Subjective Progress Notes Subjective The patient states she is not feeling well today. She is short of breath with exertion but maintains her O2 sats on 1 liter per PT. She also continues to have a rash from head to toe which is pruritic. Her legs have been swelling since she is now off of diuretics due to low BP. Physical Exam Vital Signs Date Time Temp Pulse Resp B/P (MAP) Pulse Ox O2 Delivery O2 Flow Rate FiO2 06/19/18 12:32 72 18 06/19/18 12:23 90 Nasal Cannula 1.0 06/19/18 08:00 99.7 97/58 (71) Intake and Output 06/19/18 07:00 Intake Total 2110 ml Output Total 400 ml Balance 1710 ml Intake Oral 1960 ml IV Total 150 ml Output Urine Total 400 ml General Appearance: Alert, Awake, Other (Mild increased work of breathing.) Neuro: No Gross deficits Cardiovascular: Other (Irregularly irregular with valve click and murmur.) Respiratory: Other (Mild respiratory distress) GI: Other (Slightly distended, nontender, with active BS.) Extremities: Warm, Edema (2+ edema bilaterally.) Integumentary: Scaly / Dry Skin, Other (Red fine maculopapular rash throughout.) Psych: Appropriate Mood & Affect Result Diagram: 06/16/184 06/16/184 Assessment and Plan Problems: (1) CHF (congestive heart failure) Status: Acute Assessment & Plan: The patient has a history of prosthetic mitral valve. Last echo was done in 2010.On recent CXRs, she has been noted to have possible pulmon ric edema. She has increasing LE edema. She has now developed increased abdominal girth. Suspect CHF but a BNP on 06/17/18 was WNL. Will get an echo for further evaluation. (2) Rash Status: Acute Assessment & Plan: The patient developed a diffuse macular erythematous rash in the groin/abd/low back on 06/16/18. It was initially mild and non-pruritic but has been persistent. Pharmacy reviewed inpt vs outpt meds and recommended stopping Mucinex, so that has been done. Her Lasix was also discontinued. She did receive a one time dose of Vancomycin on 06/16/18, but this occurred AFTER the rash was noted. Will follow. (3) Pneumonia Status: Acute Assessment & Plan: She did have increased congestion and shortness of breath. Her x-ray suggested a left sided infiltrate with associated pleural effusion. She was started on empiric treatment with IV Primaxin. She completed 7 days of antibiotic therapy. Cultures were negative. She was then transferred back to [facility] and had an episode of aspiration. Reportedly, she was suctioned and found to have scrambled eggs in her airway. This occurred when she was eating while in bed. She was placed on Levaquin and ST reevaluated. There was no evidence of a swallowing problem and ST recommended the patient be upright for all oral intake. 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 Dr. Orantes has been following her as an outpatient. Purulent discharge was noted on initial evaluation and a wound culture has grown MRSA. A plain film was negative for osteomyelitis. Physical therapy is providing wound care. She was initially started on vancomycin and levofloxacin, but was transitioned to just vancomycin. She completed a total 14 days therapy on Jun.12. She then developed fever. There was concern for recurrent infection. MRI could not be done to to prosthe tic MV. A 3 phase bone study was done. Osteomyelitis could not be ruled out. Surgery was consulted and recommended treating with Mike for a complete 6 weeks as the patient is not a good surgical candidate. (5) Weakness Status: Acute Assessment & Plan: She has had more falls at home prior to admission. She had lost about 5 pounds in the last 12 days prior to admission. Prealbumin low at 16.7 on admission. OT/PT are following the patient. Will continue on SHANNAN to ensure adequate calorie intake and also encouraged protein intake. A recheck of prealbumin was 12.3 on 06/16/18. (6) Atrial fibrillation, controlled Status: Chronic Assessment & Plan: She was on chronic treatment with digoxin and warfarin. The digoxin was held secondary to bradycardia (HR in the 30's while sleeping) and concerns that it might be contributing to her falls. Her rate is controlled off the digoxin and she is no longer having the bradycardia. Looking back at EMR outpatient visits, her usual dose of Coumadin had been 1.5mg daily x 6 days per week and 2mg once per week. She did come in supra-therapeutic. Her INR is low on 1.5mg a day. Change to 2mg and start Lovenox to bridge. (7) Mitral valve replaced Status: Chronic Assessment & Plan: INR goal is 2.5-3.5. See above. (8) Type 2 diabetes mellitus without complications Status: Chronic Assessment & Plan: Metformin held secondary to ARF and normal BS. She is currently on diet as tolerated secondary to the weight loss. AC and HS glucose. So far, she has not required insulin dosing per sliding scale. Will continue to hold metformin. (9) Anemia Status: Chronic Assessment & Plan: Iron studies show a low iron level (on Niferex bid). Ferritin is normal, but can be due to acute inflammation. Stool is positive for occult blood. She did receive 2 units of red cells on 06/08. She has to be on anticoagulation secondary to the MV and the high stroke risk. Might need to consider EGD/colonoscopy if worsening. Will start PPI. Will check B12 and Folate. Will monitor closely. (10) Rheumatoid arthritis Status: Chronic Assessment & Plan: She is chronically on methotrexate, which we was held due to active infection. Might need to restart soon. (11) Acquired hypothyroidism Status: Chronic Assessment & Plan: Continue levothyroxine. Time Spent on Plan of Care: < 30 min NIKOLAI LOPES MD Jun 19, 2018 15:14
--- NOTE | 2018-06-19 15:14 | General Surgery Consultation ---
History of Present Illness Requesting Physician dr. marito guzmán Reason for Consult left foot wound Chief Complaint left foot wound History of Present Illness 82 yo f with left foot wound for several months. it is not painful. no current drainage. recent fever but this may have been caused by pneumonia. pt unable to get mri due to stent; therefore, her left foot was evaluated with a bone scan . the scan was equivocal for osteomyelitis. pt is diabetic. History Home Meds Active Scripts Warfarin Sodium (WARFARIN SODIUM) 1 Mg Tablet, 1.5 MG PO QDAY, #45 TAB 11 Refills Prov:KACIE MENDES MD 05/01/18 Spironolactone (SPIRONOLACTONE) 25 Mg Tablet, 1 TAB PO QDAY, #90 TAB 3 Refills Prov:KACIE MENDES MD 05/01/18 Levothyroxine Sodium (SYNTHROID) 88 Mcg Tablet, 1 TAB PO QDAY, #45 TAB 3 Refills Prov:KACIE MENDES MD 04/04/18 Methotrexate Sodium (METHOTREXATE) 2.5 Mg Tablet, 3 TAB PO QWEEK, #12 TAB 6 Refills Prov:KACIE MENDES MD 01/28/18 Furosemide (FUROSEMIDE) 40 Mg Tablet, 1 TAB PO QDAY, #90 TAB 4 Refills Prov:KACIE MENDES MD 12/04/17 Digoxin (DIGOXIN) 125 Mcg Tablet, 1 TAB PO DAILY, #90 TAB 3 Refills Prov:KACIE MENDES MD 08/07/17 Metformin Hcl (METFORMIN HCL) 500 Mg Tablet, 1 TAB PO QDAY, #90 TAB 3 Refills Prov:KACIE MENDES MD 08/07/17 Folic Acid (FOLIC ACID) 1 Mg Tablet, 1 MG PO QDAY, #90 TAB 3 Refills Prov:KACIE MENDES MD 08/07/17 Reported Medications Vit A,C & E/Lutein/Minerals (OCUVITE TABLET) 1 Each Tablet, 1 TAB PO BID 02/27/14 Calcium Carbonate/Vitamin D3 (CALCIUM 500 + D TABLET) 1 Each Tablet, 1 TAB PO BID 02/27/14 Allergies: Coded Allergies: Penicillins (Verified Allergy, Severe, hives, 12/28/16) Sulfa (Sulfonamide Antibiotics) (Verified Allergy, Intermediate, rash, 12/28/16) latex (Verified Allergy, Mild, RASH, 12/28/16) strawberry (Unverified Allergy, Unknown, 05/30/18) Family History: FH: anemia FATHER, , Age:90 FH: diabetes mellitus MOTHER, , Age:91 BROTHER OR SISTER, Age:83 FH: rheumatoid arthritis FATHER, , Age:90 BROTHER OR SISTER (Sister), Age:90 Review of Systems Constitutional: Other (per hpi) Exam Vital Signs Vital Signs Date Time Temp Pulse Resp B/P (MAP) Pulse Ox O2 Delivery O2 Flow Rate FiO2 06/19/18 12:32 72 18 06/19/18 12:23 90 Nasal Cannula 1.0 06/19/18 08:00 99.7 97/58 (71) General Appearance: Alert, Awake, No Acute Distress Eyes: Other (per, eomi) ENT: Moist Mucous Membranes Neck: No Masses Cardiovascular: Other (reg rate) Respiratory: No Respiratory Distress GI: Other (soft) Extremities: Other (left foot with <1 cm wound on plantar aspect at mtp joint, nttp, no gross cellulitis, no drainage, difficult to palpate dp pulse) Psych: Appropriate Mood & Affect Medical Decision Making Data Points Result Diagram: 06/16/18171306/16/181713 Assessment and Plan Problems: (1) Open wound of left foot excluding toes without complication Status: Chronic Assessment & Plan: bone scan equivocal for osteomyelitis. wbc normal. no current drainage of gross cellulitis. pt is poor surgical candidate. i recommend 6 wks iv abx and wound care. if condition worsens then ray amp of left second toe. Venous Thromboembolism Antithrombotics Is Pt On Any Antithrombotics?: Yes KATHERINE BARTHOLOMEW Jun 19, 2018 15:14
[2018-06-19 15:22] LABS: PLATELET COUNT, AUTOMATED 191 K/uL (150-450)
--- NOTE | 2018-06-19 15:23 | NUR ---
Occupational Therapy Impression Pt alert and agreeable to OT. SpO2 WNL on room air. Pt not feeling well, nursing aware. [id number]. 25 minutes non-billable as physicians rounding with pt. Mod A sit<>stand from chair. Ambulation x5ft with RW prior to fatigue. UB ther ex. Pt not tolerating tx as well this date.Continue POC. Occupational Therapy Goals 1) Pt to perform shower activities with Min A. 2) Pt to perform toileting activities with Mod I. 3) Pt to perform dressing activities with Min A. 4) Pt to perform grooming activities with [place]. 5) Pt [place] Index of ADLs score to improve by 2 points. Patient's Goal
--- NOTE | 2018-06-19 16:23 | Pharmacy Note ---
Vancomycin Management Note Vanco Dosing Note Pharmacy Services Pharmacokinetic Dosing Consult, Vancomycin Pharmacy has been consulted for dosing and monitoring of vancomycin for 82 yo F for osteomyelitis. Pertinent Past Medical History: CHF, Pneumonia, Osteomyelitis (L foot), a fib, MVR, DM2, Anemia, RA, Hypothyroid Antibiotics prior to admission; Yes, currently on Levofloxacin for aspiration pneumonia, today is day 4 of treatment for pneumonia Additional Antimicrobials: 06/16/18- Levofloxacin 750mg IV Q48H - day 4 06/19/18- Vancomycin 1.5g IV x 1, random level pending on 06/20/18 @12 Patient Information: Height (cm): ? (not 12.7cm) Actual Body Weight (ABW): 57 kg Pertinent Lab Tests WHITE BLOOD COUNT 13.6 (93.1% neuts) NEUTROPHILS 12.7 BLOOD UREA NITROGEN 42 SCR 1.5 (CrCL ~26ml/min) VANCOMYCIN TROUGH VANCOMYCIN RANDOM - pending for 06/20/18 @ 1200 Culture Results: None pending Consider Blood Cx- already on Levofloxacin Assessment: CrCl 26 ml/min Renal function is deteriorating...will watch labs to determine if worsening or improving Vancomycin Monitoring Assessment Goal Vancomycin Trough Level: 15-20 mcg/mL Plan: 1) Vancomycin 25 mg/kg loading dose (based on ABW): 1.5g IV x 1 2) Vancomycin maintenance dose (based on ABW): 750mg IV Q18H (prior regimen) 3) Vancomycin monitoring: Trough ordered for 06/20/18 @1200 (18 h) Pharmacy will continue to monitor daily and adjust regimen as appropriate. Thank you for the consult. Pam Heaton, PharmD, BCOP [facility] Jun 19, 2018 16:23
--- NOTE | 2018-06-19 16:28 | Hospitalist Depart ---
Discharge Summary Reason for Hosp/Final Diag: (1) Pneumonia Status: Acute Hospital Course & Plan: The patient was initially admitted to [facility] for a foot infection. She was transferred from the medical floor to [facility] for ongoing antibiotic therapy. She developed increased congestion and shortness of breath. Her x-ray suggested a left sided infiltrate with associated pleural effusion. She was transferred back to the medical floor and treated for possible aspiration pneumonia. She improved and was transferred back to [facility] on June 14. Later that day the patient had an episode of aspiration and apparently had scrambled eggs suctioned from her airway at that time. She was monitored and developed fever and increased O2 requirements. She was placed on Levaquin and ST reevaluated. There was no evidence of a swallowing problem and ST recommended the patient be upright for all oral intake. Today the patient was noted to be weaker and more short of breath. She was also hypotensive. Labs were done and she was noted to have an elevated lactate. Her WBC was also elevated at nearly 14,000 with a left shift. Her creatinine was elevated as well. The patient was transferred back to the medical floor for treatment of aspiration pneumonia. (2) CHF (congestive heart failure) Status: Acute Hospital Course & Plan: The patient has a history of prosthetic mitral valve. Last echo was done in 2010. On recent CXRs, she was noted to have possible pulmonary edema. She was also noted to have increasing LE edema. She also developed increased abdominal girth. CHF was considere but a BNP on 06/17/18 was WNL. An echocardiogram was ordered and can be done on the medical floor. (3) Rash Status: Acute Hospital Course & Plan: The patient developed a diffuse macular erythematous rash in the groin/abd/low back on 06/16/18. It was initially mild and non- pruritic but persisted. Pharmacy reviewed inpt vs outpt meds and recommended stopping Mucinex, so that was done. Her Lasix was also discontinued. She did receive a one time dose of Vancomycin on 06/16/18, but this occurred AFTER the rash was noted. This will need to be followed on the medical floor. (4) Open wound of left foot excluding toes without complication Status: Chronic Hospital Course & Plan: She has had a wound since April. Dr. Orantes has been following her as an outpatient. Purulent discharge was noted on initial evaluation and a wound culture has grown MRSA. A plain film was negative for osteomyelitis. Physical therapy is providing wound care. She was initially started on vancomycin and levofloxacin, but was transitioned to just vancomycin. She completed a total 14 days therapy on Jun.12. She then developed fever. There was concern for recurrent infection. MRI could not be done to to prosthetic MV. A 3 phase bone study was done. Osteomyelitis could not be ruled out. Surgery was consulted and recommended treating with Vanco for a complete 6 weeks as the patient is not a good surgical candidate. Vanco was restarted. (5) Weakness Status: Acute Hospital Course & Plan: She was having more falls at home prior to admission. She had lost about 5 pounds in the last 12 days prior to admission. Prealbumin was low at 16.7 on admission. OT/PT were following the patient. She was placed on SHANNAN to ensure adequate calorie intake and also adequate protein intake. A recheck of prealbumin was 12.3 on 06/16/18. (6) Atrial fibrillation, controlled Status: Chronic Hospital Course & Plan: She was on chronic treatment with digoxin and warfarin. The digoxin was held secondary to bradycardia (HR in the 30's while sleeping) and concerns that it might be contributing to her falls. Her rate is controlled off the digoxin and she is no longer having the bradycardia. Looking back at EMR outpatient visits, her usual dose of Coumadin had been 1.5mg daily x 6 days per week and 2mg once per week. She did come in supra-therapeutic. Her INR is low on 1.5mg a day. Change to 2mg and start Lovenox to bridge. (7) Mitral valve replaced Status: Chronic Hospital Course & Plan: INR goal is 2.5-3.5. See above. (8) Type 2 diabetes mellitus without complications Status: Chronic Hospital Course & Plan: Metformin was initially held secondary to ARF and normal BS. She was placed on diet as tolerated secondary to the weight loss. AC and HS glucoses were followed. BS were adequate off of metformin so it was discontinued. (9) Anemia Status: Chronic Hospital Course & Plan: Iron studies showed a low iron level (on Niferex bid). Ferritin was normal, but could be due to acute inflammation. Stool was positive for occult blood. She did receive 2 units of red cells on 06/08. She was continued on anticoagulation secondary to the prosthetic MV and the high stroke risk. Hgb stabilized. PPI was started. B12 and folate were rechecked and were WNL. She will need to be monitored while on the medical floor. (10) Rheumatoid arthritis Status: Chronic Hospital Course & Plan: She is chronically on methotrexate, which was held due to active infection. (11) Acquired hypothyroidism Status: Chronic Hospital Course & Plan: She was continued on levothyroxine. TSH was 0.88. Departure Weight (Pounds): 125 Weight (Ounces): 8.0 Result Diagram: 06/19/18 1511 06/19/18 151 Chronic bilateral weakness. Condition: Critical Discharge: Another Hospital ([facility] medical floor.) Discharge Code Status: Full Code Time Spent: < 30 min Discharge Instructions Home Meds Active Scripts Warfarin Sodium (WARFARIN SODIUM) 1 Mg Tablet, 1.5 MG PO QDAY, #45 TAB 11 Refills Prov:KACIE MENDES MD 05/01/18 Spironolactone (SPIRONOLACTONE) 25 Mg Tablet, 1 TAB PO QDAY, #90 TAB 3 Refills Prov:KACIE MENDES MD 05/01/18 Levothyroxine Sodium (SYNTHROID) 88 Mcg Tablet, 1 TAB PO QDAY, #45 TAB 3 Refills Prov:KACIE MENDES MD 04/04/18 Methotrexate Sodium (METHOTREXATE) 2.5 Mg Tablet, 3 TAB PO QWEEK, #12 TAB 6 Refills Prov:KACIE MENDES MD 01/28/18 Furosemide (FUROSEMIDE) 40 Mg Tablet, 1 TAB PO QDAY, #90 TAB 4 Refills Prov:KACIE MENDES MD 12/04/17 Digoxin (DIGOXIN) 125 Mcg Tablet, 1 TAB PO DAILY, #90 TAB 3 Refills Prov:KACIE MENDES MD 08/07/17 Metformin Hcl (METFORMIN HCL) 500 Mg Tablet, 1 TAB PO QDAY, #90 TAB 3 Refills Prov:KACIE MENDES MD 08/07/17 Folic Acid (FOLIC ACID) 1 Mg Tablet, 1 MG PO QDAY, #90 TAB 3 Refills Prov:KACIE MENDES MD 08/07/17 Reported Medications Vit A,C & E/Lutein/Minerals (OCUVITE TABLET) 1 Each Tablet, 1 TAB PO BID 02/27/14 Calcium Carbonate/Vitamin D3 (CALCIUM 500 + D TABLET) 1 Each Tablet, 1 TAB PO BID 02/27/14 Diet: Regular Activity: As Tolerated Copies to: KACIE MENDES MD ; Venous Thromboembolism Antithrombotics Is Pt On Any Antithrombotics?: Yes NIKOLAI LOPES MD Jun 19, 2018 16:28
--- NOTE | 2018-06-19 16:47 | NUR ---
Patient with critical lactate at 3.6 and increasing WBCs. Rachael Thomson MD notified and ordered transfer to medical unit. Report called to KASHMIR Harris A .
[2018-06-19] MEDS ORDERED: VANCOMYCIN(*) 1 GM VIAL 1 GM, VANCOMYCIN (*) 0.5 GM VIAL 0.5 GM in NS(*) 0.9% 250 ML BA... IVPB ONE (18:00)
[2018-06-19] MEDS ORDERED: ENOXAPARIN 100 MG/ML SYR SC SCH ×2 (21:00)
--- NOTE | 2018-06-20 08:30 | PT ECF NOTE ---
Type of Note: Discharge Summary Primary Medical Diagnosis: Generalized weakness s/p extended hospital admissions/transfers. Physical Therapy Evaluation Date: 06/20/18 SUBJECTIVE: Prior Hospitalization: [facility] Medical 05/29/18-06/04/18. [facility] 06/04/18 thru 06/07/18. [facility] 06/07/18 thru 06/14/18 for pneumonia. Return to [facility] 06/14/18-06/19/18 for continued skilled care and rehab. Pt discharged to [facility] medical/surgical floor on 06/19/18 for treatment of aspiration pneumonia. Prior Level of Function: Pt previously living alone but was unable to adequately care for herself. Pt plans to discharge to her daughter's home but her daughter does work during daytime house. Prior Living Status: Alone/see above Community Services: No known needs Home Accessibility: Pt's daughter's home has a reported 6 then 6 stairs to enter with railing. Equipment Owned: Rollator Medical Complications/Past Medical History: Please see AQS Psychosocial Support: supportive daughter OBJECTIVE: Strength: grossly 3/5. ROM: (please note any abnormalities) noted ulnar deviation of all fingers and toes. Sensation: (please note any abnormalities) Absent in B feet Bed Mobility: Nawaf Transfers: CGA-Nawaf depending on medical condition Gait: CGA x180' with RW Stairs: x4 stairs with CGA Timed Up and Go (>12 seconds indicated increased risk for falls): 31.4 seconds Wound: L foot plantar surface at 2nd MTP joint: 0.6 cm length x 0.5 cm width x 0.6cm depth and 100% granulation tissue. Ju-wound callused. ASSESSMENT: Please see hospitalist notes for details, pt was discharged to [facility] medical/surgical floor for treatment of aspiration pneumonia. Problem List/Current Limitations: Decreased activity tolerance, Decreased strength, Decreased sensation, Decreased balance, Generalized weakness, Memory deficits, Confusion, Shortness of breath Short Term Goals: (not met) 1. Mod I bed mobility. 2. Mod I transfers. 3. Mod I gait x 150' with appropriate assistive device. 4. Ascend/descend 12 stairs CGA. 5. Improve TUG to less than/equal to 29 seconds as indicator of improved safety with functional mobility. Electrotype Caster Goals: discharge to daughter's home Patient Goals: discharge to daughter's home Rehabilitation Prognosis: Fair . PLAN: The patient will receive medical care at [facility] on the medical surgical floor. Thank you for this referral. If you have any questions, concerns, or comments about this report or plan, please contact me at . Tete Blair, PT, DPT [facility]
--- NOTE | 2018-06-20 08:46 | OT ECF NOTE ---
Type of Note: Discharge Note Primary Medical Diagnosis: Generalized weakness s/p extended hospital admissions/transfers. Occupational Therapy Evaluation Date: 06/14/18 SUBJECTIVE: Prior Hospitalization: [facility] Medical 05/29/18-06/04/18. [facility] ECF 06/04/18 thru 06/07/18. [facility] Medical 06/07/18 thru 06/14/18 for pneumonia. Return to [facility] 06/14/18 for continued skilled care and rehab. Prior Level of Function: Pt. was residing alone in [facility], however, was not able to care for herself adequately recently. Prior Living Status: Apartment Living with family Assist by family Community Services: No known needs Home Accessibility: Stairs with rails Tub/shower combination-Pt unable to recall all of daughter's apartment set-up. Will follow. Equipment Owned: Rollator Tub/shower chair Medical Complications/Past Medical History: Please refer to chart for details. Psychosocial Support: Very supportive daughter and family. Pain Scale (0-10): 3/10 in bilateral LE's due to swelling. Bilateral LE's elevated at end of tx, pt expressing relief. 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 [*] [*] (5= normal, 4= good, 3= fair, 2= poor, 1= trace) ROM: Both upper extremities, Severely limited Functional Transfer: Assistive Device: Front wheeled walker, Gait belt Transfer Ability: 1-person assist, CGA ADL: Upper body dressing: Assistive device: Upper body dressing ability: Lower body dressing: Assistive device: Lower body dressing ability: Maximum assistance (to damion/doff socks and shoes) Toileting: Assistive device: Grab bars Toileting ability: Minimum assistance Grooming/hygiene: Standing Assistive device: None-Fatigues within a few minutes of standing Grooming ability: Minimum assistance Bathing: Assistive device: Bathing ability: N/T Standardized Assessment: Mica Index of Activities of Daily Living- Pt. scored 12/20 on this index on 06/14/18. Pt. scored 12/20 on this index on 06/20/18. ASSESSMENT: Pt. is a 82 year old female admitted with various recent hospital admissions/transfers (see EMR). Pt. had been residing alone in a bi- level home in [place], however, was not able to care for her herself adequately recently. Pt. was admitted to [facility] in order to receive additional therapy to increase strength and independence in ADL activities. Pt.will d/c to daughter's apartment in [place], [place], which has 15-17 stairs to access. Problem List/Current Limitations: Decreased activity tolerance Decreased sensation Decreased ROM Memory deficits Short Term Goals: 1. Pt. to perform showering activities with Min A. Progressing towards 2. Pt. to perform toileting activities with Mod I. Progressing towards 3. Pt. to perform dressing activities with Min A. Progressing towards 4. Pt. to perform grooming activities with I. Progressing towards 5. Pt. to increase Mica Index of ADL score by 2 points. 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 Patient Goals: D/c to daughters apartment Rehabilitation Prognosis: Fair Barriers to Discharge: Memory Deficits, RA PLAN: The patient was discharged to [facility] medical 06/19/18 for aspiration pneumonia and further medical care. Thank you for this referral. If you have any questions, concerns, or comments about this report or plan, please contact me at . Dominga Crawford MS, OTR/L Occupational Therapist [facility]
[2018-06-20] MEDS ORDERED: TAMSULOSIN HCL 0.4 MG CAP PO SCH (09:00)
== END 2018-06-19 16:43 | disposition still patient (30) | DRG 947 ==
LOC: ECF 10:40
PROVIDERS: ADMIT Internal Medicine; ATTEND Internal Medicine
PROC: 0JDR3ZZ Extraction of Left Foot Subcutaneous Tissue and Fascia, Percutaneous Approach (ICD-10-PCS; principal; 2018-06-18)
DX: R53.1 Weakness (principal); J69.0 Pneumonitis due to inhalation of food and vomit; M86.9 Osteomyelitis, unspecified; I48.2 Chronic atrial fibrillation; R09.02 Hypoxemia; I50.9 Heart failure, unspecified; R21 Rash and other nonspecific skin eruption; I95.9 Hypotension, unspecified; M06.9 Rheumatoid arthritis, unspecified; E03.9 Hypothyroidism, unspecified; G60.9 Hereditary and idiopathic neuropathy, unspecified; Z66 Do not resuscitate; D50.9 Iron deficiency anemia, unspecified; Z95.2 Presence of prosthetic heart valve; Z79.84 Long term (current) use of oral hypoglycemic drugs; Z79.01 Long term (current) use of anticoagulants; Z86.14 Personal history of Methicillin resistant Staphylococcus aureus infection
CPT/HCPCS: 36415; 36416; 71045; 78315; 81001; 82040; 82247; 82310; 82374; 82435; 82565; 82607; 82746; 82947; 82948; 83605; 83880; 84075; 84132; 84134; 84155; 84295; 84450; 84460; 84520; 85025; 85610; 86140; 87040; 87088; 94640; 97161; 97162; 97166; A9503; J1650; J1956; J3370; J7040; J7050

== ENCOUNTER 2018-06-19 16:43 | Inpatient (IN) | payer MEDICARE, OTHER ==
[2018-06-08 15:17] VITALS: Ht 152.4 cm; Wt 55.8 kg
[~2018-06-19] VITALS: Ht 152.4 cm; Wt 55.8 kg
[2018-06-19] MEDS ORDERED: NS(*) 0.9% 250 ML BAG 250 ML ONE (17:11)
[2018-06-19 17:13] VITALS: BP 97/36
--- NOTE | 2018-06-19 17:31 | History & Physical ---
History of Present Illness Chief Complaint Aspiration History of Present Illness This patient was transferred from [facility] care after a recurrent episode of aspiration. 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 Status: Acute (7) Atrial fibrillation, controlled Status: Chronic (8) Type 2 diabetes mellitus without complications Status: Chronic (9) Mitral valve replaced Status: Chronic (10) Heart valve replaced by other means Status: Acute Home Meds Active Scripts Warfarin Sodium (WARFARIN SODIUM) 1 Mg Tablet, 1.5 MG PO QDAY, #45 TAB 11 Refills Prov:KACIE MENDES MD 05/01/18 Spironolactone (SPIRONOLACTONE) 25 Mg Tablet, 1 TAB PO QDAY, #90 TAB 3 Refills Prov:KACIE MENDES MD 05/01/18 Levothyroxine Sodium (SYNTHROID) 88 Mcg Tablet, 1 TAB PO QDAY, #45 TAB 3 Refills Prov:KACIE MENDES MD 04/04/18 Methotrexate Sodium (METHOTREXATE) 2.5 Mg Tablet, 3 TAB PO QWEEK, #12 TAB 6 Refills Prov:KACIE MENDES MD 01/28/18 Furosemide (FUROSEMIDE) 40 Mg Tablet, 1 TAB PO QDAY, #90 TAB 4 Refills Prov:KACIE MENDES MD 12/04/17 Digoxin (DIGOXIN) 125 Mcg Tablet, 1 TAB PO DAILY, #90 TAB 3 Refills Prov:KACIE MENDES MD 08/07/17 Metformin Hcl (METFORMIN HCL) 500 Mg Tablet, 1 TAB PO QDAY, #90 TAB 3 Refills Prov:KACIE MENDES MD 08/07/17 Folic Acid (FOLIC ACID) 1 Mg Tablet, 1 MG PO QDAY, #90 TAB 3 Refills Prov:KACIE MENDES MD 08/07/17 Reported Medications Vit A,C & E/Lutein/Minerals (OCUVITE TABLET) 1 Each Tablet, 1 TAB PO BID 02/27/14 Calcium Carbonate/Vitamin D3 (CALCIUM 500 + D TABLET) 1 Each Tablet, 1 TAB PO BID 02/27/14 Allergies: Coded Allergies: Penicillins (Verified Allergy, Severe, hives, 12/28/16) Sulfa (Sulfonamide Antibiotics) (Verified Allergy, Intermediate, rash, 12/28/16) latex (Verified Allergy, Mild, RASH, 12/28/16) strawberry (Unverified Allergy, Unknown, 05/30/18) Patient History: FH: anemia FATHER, , Age:90 FH: diabetes mellitus MOTHER, , Age:91 BROTHER OR SISTER, Age:83 FH: rheumatoid arthritis FATHER, , Age:90 BROTHER OR SISTER (Sister), Age:90 Hx Smoking: No Smoking Status: Never Smoker Exposure to Second Hand Smoke?: No Caffeine Intake: Tea Caffeine/Cups Per Day: 2 Hx Alcohol Use: No Hx Substance Use Disorder: No Social Drug Use: Never Review of Systems All Systems Reviewed/Normal: Yes, Except as Noted Respiratory: Shortness of Breath, Cough, Wheezing Exam Vital Signs Vital Signs Date Time Temp Pulse Resp B/P (MAP) Pulse Ox O2 Delivery O2 Flow Rate FiO2 06/19/18 17:13 98.7 79 30 97/36 (56) 93 Room Air Neuro: No Gross deficits Eyes: PERRLA Cardiovascular: Regular Rate and Rhythm Respiratory: Other (Bilateral rhonchi.) GI: Other (Distended.) Extremities: No Edema Integumentary: No Cyanosis Assessment and Plan Problems: (1) Aspiration pneumonia Assessment & Plan: The patient was initially admitted to [facility] for a foot infection. She was transferred from the medical floor to [facility] for ongoing antibiotic therapy. She developed increased congestion and shortness of breath. Her x-ray suggested a left sided infiltrate with associated pleural effusion. She was transferred back to the medical floor and treated for possible aspiration pneumonia. She improved and was transferred back to [facility] on June 14. Later that day the patient had an episode of aspiration and apparently had scrambled eggs suctioned from her airway at that time. She was monitored and developed fever and increased O2 requirements. She was placed on Levaquin and ST reevaluated. There was no evidence of a swallowing problem and ST recommended the patient be upright for all oral intake. Today the patient was noted to be weaker and more short of breath. She was also hypotensive. Labs were done and she was noted to have an elevated lactate. Her WBC was also elevated at nearly 14,000 with a left shift. Her creatinine was elevated as well. The patient was transferred back to the medical floor for treatment of aspiration pneumonia. (2) Abdominal distention Assessment & Plan: The patient has a history of prosthetic mitral valve. Last echo was done in 2010. On recent CXRs, she was noted to have possible pulmonary edema. She was also noted to have increasing LE edema. She also developed increased abdominal girth. CHF was considere but a BNP on 06/17/18 was WNL. An echocardiogram is pending. A CT abdomen is also ordered to evaluate for ascites. (3) Rash Status: Acute Assessment & Plan: The patient developed a diffuse macular erythematous rash in the groin/abd/low back on 06/16/18. It was initially mild and non-pruritic but persisted. Pharmacy reviewed inpt vs outpt meds and recommended stopping Mucinex, so that was done. Her Lasix was also discontinued. She did receive a one time dose of Vancomycin on 06/16/18, but this occurred AFTER the rash was noted. This will need to be followed on the medical floor. 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 Dr. Orantes has been following her as an outpatient. Purulent discharge was noted on initial evaluation and a wound culture has grown MRSA. A plain film was negative for osteomyelitis. Physical therapy is providing wound care. She was initially started on vancomycin and levofloxacin, but was transitioned to just vancomycin. She completed a total 14 days therapy on Jun.12. She then developed fever. There was concern for recurrent infection. MRI could not be done to to prosthetic MV. A 3 phase bone study was done. Osteomyelitis could not be ruled out. Surgery was consulted and recommended treating with Vanco for a complete 6 weeks as the patient is not a good surgical candidate. Vanco was restarted. (5) Weakness Status: Acute Assessment & Plan: She was having more falls at home prior to admission. She had lost about 5 pounds in the last 12 days prior to admission. Prealbumin was low at 16.7 on admission. OT/PT were following the patient. She was placed on SHANNAN to ensure adequate calorie intake and also adequate protein intake. A recheck of prealbumin was 12.3 on 06/16/18. (6) Atrial fibrillation, controlled Status: Chronic Assessment & Plan: She was on chronic treatment with digoxin and warfarin. The digoxin was held secondary to bradycardia (HR in the 30's while sleeping) and concerns that it might be contributing to her falls. Her rate is controlled off the digoxin and she is no longer having the bradycardia. Looking back at EMR outpatient visits, her usual dose of Coumadin had been 1.5mg daily x 6 days per week and 2mg once per week. She did come in supra-therapeutic. Her INR is low on 1.5mg a day. Change to 2mg and start Lovenox to bridge. (7) Mitral valve disorder Status: Acute Assessment & Plan: INR goal is 2.5-3.5. (8) Type 2 diabetes mellitus without complications Status: Chronic Assessment & Plan: Metformin was initially held secondary to ARF and normal BS. She was placed on diet as tolerated secondary to the weight loss. AC and HS glucoses were followed. BS were adequate off of metformin so it was discontinued. (9) Anemia Status: Chronic Assessment & Plan: Iron studies showed a low iron level (on Niferex bid). Ferritin was normal, but could be due to acute inflammation. Stool was positive for occult blood. She did receive 2 units of red cells on 06/08. She was continued on anticoagulation secondary to the prosthetic MV and the high stroke risk. Hgb stabilized. PPI was started. B12 and folate were rechecked and were WNL. She will need to be monitored while on the medical floor. (10) Rheumatoid arthritis Status: Chronic Assessment & Plan: She is chronically on methotrexate, which was held due to active infection. (11) Acquired hypothyroidism Status: Chronic Assessment & Plan: She was continued on levothyroxine. TSH was 0.88. Venous Thromboembolism Antithrombotics Is Pt On Any Antithrombotics?: Yes AURORA GASPAR DO Jun 19, 2018 17:31
[2018-06-19] MEDS: ALBUTEROL/IPRATROPIUM 3 ML NEB NEB SCH (17:54)
[2018-06-19] MEDS ORDERED: VANCOMYCIN(*) 1 GM VIAL 1 GM, VANCOMYCIN (*) 0.5 GM VIAL 0.5 GM in NS(*) 0.9% 250 ML BA... IVPB ONE (18:00)
--- NOTE | 2018-06-19 18:14 | RADIOLOGY IMAGING REPORT ---
FACILITY: [facility] - [place], [place] PATIENT NAME: Kinsey Hwang : 1935 MR: [id number] V: [id number] EXAM DATE: ORDERING PHYSICIAN: AURORA GASPAR TECHNOLOGIST: [facility] Patient: Kinsey Hwang : 1935 Visit/Account:[id number] Date of Sevice: 06/19/2018 EXAMINATION: CT abdomen without IV contrast HISTORY: Abdominal pain. TECHNIQUE: Axial CT images of the abdomen were obtained without IV contrast, with coronal and sagit dick 2D reconstructed images. One of the following dose optimization techniques was utilized in the performance of this exam: Autom ated exposure control; adjustment of the mA and/or kV according to the patient's size; or use of an i terative reconstruction technique. Specific details can be referenced in the facility's radiology C T exam operational policy. COMPARISON: 08/12/2011. FINDINGS: Evaluation of the solid and viscus parenchymal organs is limited without the benefit of IV contrast. Images are also degraded by moderate respiratory motion artifact. Liver: Negative. Gallbladder and bile ducts: Negative. Spleen: Negative. Pancreas: Negative. Adrenal glands: Negative. Kidneys: Negative. No hydronephrosis or urinary calculi. Bowel and peritoneum: Visualized portions of the small bowel and colon are normal in caliber. Modera te volume of colonic stool. No abdominal ascites or free intraperitoneal air. Lymph node assessment: Negative. Vessels: Moderate vascular calcifications. Normal caliber abdominal aorta. Musculoskeletal/body wall: There is a hematoma tracking along the musculature of the lateral left abd ominal wall. This measures approximately 3.6 x 3.0 cm in transverse diameter and extends craniocaudal ly over a length of 5.5 cm to the level of the iliac crest. No acute osseous findings. Chronic multilevel degenerative changes along the spine. Vertebral body he ight is maintained. Lung bases: Trace bilateral layering pleural effusions with adjacent atelectasis in the lung bases. Moderate cardiac enlargement. IMPRESSION: 1. Hematoma along the lateral left abdominal wall musculature, measuring up to 5.5 cm. 2. No other acute intra-abdominal findings by noncontrast CT imaging. Report Dictated By: Beny Nolasco MD at 06/19/2018 5:53 PM Report E-Signed By: Beny Nolasco MD at 06/19/2018 6:10 PM WSN:[id number]
[2018-06-19 19:08] VITALS: BP 96/53
[2018-06-19] MEDS: NS(*) 0.9% 1000 ML BAG 1,000 ML IV PRN (20:46)
[2018-06-19 23:04] VITALS: BP 111/65
[2018-06-19] MEDS: ACETAMINOPHEN 325 MG TAB PO PRN (23:17)
[2018-06-20] MEDS: NS(*) 0.9% 1000 ML BAG 1,000 ML IV PRN ×2 (00:40→11:35)
[2018-06-20 05:09] VITALS: BP 82/47
[2018-06-20] MEDS: LEVOTHYROXINE SOD 0.088 MG TAB PO SCH (05:16)
[2018-06-20] MEDS: ALBUTEROL/IPRATROPIUM 3 ML NEB NEB SCH ×3 (05:22→17:10)
[2018-06-20 06:16] LABS: PLATELET COUNT, AUTOMATED 169 K/uL (150-450)
[2018-06-20 08:03] VITALS: BP 97/71
[2018-06-20] MEDS ORDERED: methylPREDNIS SUCC 125 MG/2ML IVP ONE (08:53)
[2018-06-20] MEDS ORDERED: ALTEPLASE RECOMB 2 MG VIAL IVP ONE ×2 (08:54→10:00)
[2018-06-20] MEDS ORDERED: ENOXAPARIN 100 MG/ML SYR SC SCH (09:00)
--- NOTE | 2018-06-20 10:04 | Hospitalist Progress Note ---
Subjective Progress Notes Subjective She reports feeling improved this AM. She is alert and oriented. Physical Exam Vital Signs Date Time Temp Pulse Resp B/P (MAP) Pulse Ox O2 Delivery O2 Flow Rate FiO2 06/20/18 08:03 97.5 73 20 97/71 (80) 93 Room Air 06/20/18 05:18 2.0 Intake and Output 06/20/18 07:00 Intake Total 1723 ml Output Total 700 ml Balance 1023 ml Intake Oral 0 ml IV Total 1723 ml Output Urine Total 700 ml # Bowel Movements 2 General Appearance: Alert, Awake Cardiovascular: Other (Irregular with systolic murmur/valve click) Respiratory: Other (rales at both bases) GI: Soft and Non-Tender (BS present) Extremities: Warm, Perfused, Edema (2-3+ both LE) Result Diagram: 06/20/1860306/20/18603 Assessment and Plan Problems: (1) Aspiration pneumonia Status: Acute Assessment & Plan: The patient was initially admitted to [facility] for a foot infection. She was transferred from the medical floor to [facility] for ongoing antibiotic therapy. She developed increased congestion and shortness of breath. Her x-ray suggested a left sided infiltrate with associated pleural effusion. She was transferred back to the medical floor and treated for possible aspiration pneumonia. She improved and was transferred back to [facility] on June 14. Later that day the patient had an episode of aspiration and apparently had scrambled eggs suctioned from her airway at that time. She was monitored and developed fever and increased O2 requirements. She was placed on Levaquin and ST re-evaluated. There was no evidence of a swallowing problem and ST recommended the patient be upright for all oral intake. Yesterday the patient was noted to be weaker and more short of breath. She was also hypotensive. Labs were done and she was noted to have an elevated lactate. Her WBC was also elevated at nearly 14,000 with a left shift. Her creatinine was elevated as well. The patient was transferred back to the medical floor for treatment of aspiration pneumonia. She is currently on IV Levaquin and received vancomycin yesterday. She was previously on IV vancomycin 750mg q18hrs. Will check level mid-day today and modify regimen as needed. (2) Abdominal distention Assessment & Plan: The patient has a history of prosthetic mitral valve. Last echocardiogram was done in 2010. On recent CXRs, she was noted to have possible pulmonary edema, but may have pulmonary fibrosis (she has longstanding RA). She was also noted to have increasing LE edema. She also developed increased abdominal girth. CHF was considered, but a BNP on 06/17/18 was WNL. Repeat echocardiogram is pending. CT abdomen does not show significant ascites. (3) Rash Status: Acute Assessment & Plan: The patient developed a diffuse macular erythematous rash in the groin/abd/low back on 06/16/18. It was initially mild and non-pruritic but persisted. Pharmacy reviewed medications and recommended stopping Mucinex. Her Lasix was also discontinued as she has a history of allergy to sulfa medications. She did receive a one time dose of Vancomycin on 06/16/18 and started Levaquin, but these occurred AFTER the rash was noted. In reviewing medications, it may be she has had a reaction to Primaxin. Will give a pulse of steroids and start Benadryl. Watch closely. 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 Dr. Orantes has been following her as an outpatient. Purulent discharge was noted on initial evaluation and a wound culture has grown MRSA. A plain film was negative for osteomyelitis. Physical therapy is providing wound care. She was initially started on vancomycin and levofloxacin, but was transitioned to just vancomycin. She completed a total 14 days therapy on Jun.12. She then developed fever. There was concern for recurrent infection. MRI could not be done to to prosthetic MV. A 3 phase bone study was done. Osteomyelitis could not be ruled out. Surgery was consulted and recommended treating with Vancomycin for a complete 6 weeks as the patient is not a good surgical candidate. Vancomycin has been restarted. (5) Weakness Status: Acute Assessment & Plan: She was having more falls at home prior to admission. She had lost about 5 pounds in the last 12 days prior to admission. Prealbumin was low at 16.7 on admission. OT/PT were following the patient. She was placed on SHANNAN to ensure adequate calorie intake and also adequate protein intake. A recheck of prealbumin was 12.3 on 06/16/18. (6) Atrial fibrillation, controlled Status: Chronic Assessment & Plan: She was on chronic treatment with digoxin and warfarin. The digoxin was held secondary to bradycardia (HR in the 30's while sleeping) and concerns that it might be contributing to her falls. Her rate is controlled off the digoxin and she is no longer having the bradycardia. Looking back at EMR outpatient visits, her usual dose of Coumadin had been 1.5mg daily x 6 days per week and 2mg once per week. She did come in supra-therapeutic. Her INR was low on 1.5mg a day. She was placed on Lovenox while she was sub-therapeutic, but it will be stopped today as she developed an abdominal wall hematoma. Watch INR closely. (7) Mitral valve disorder Status: Acute Assessment & Plan: INR goal is 2.5-3.5. Lovenox was stopped today due to abdominal wall hematoma. Watch closely. (8) Type 2 diabetes mellitus without complications Status: Chronic Assessment & Plan: Metformin was initially held secondary to ARF and normal BS. She was placed on diet as tolerated secondary to the weight loss. AC and HS glucoses were followed. BS were adequate off of metformin so it was discont inued. (9) Anemia Status: Chronic Assessment & Plan: Iron studies showed a low iron level (on Niferex bid). Ferritin was normal, but could be due to acute inflammation. Stool was positive for occult blood. She did receive 2 units of red cells on 06/08. She was continued on anticoagulation secondary to the prosthetic MV and the high stroke risk. Hgb stabilized. PPI was started. B12 and folate were rechecked and were WNL. Will need to be monitored while on the medical floor. (10) Rheumatoid arthritis Status: Chronic Assessment & Plan: She is chronically on methotrexate, which was held due to active infection. (11) Acquired hypothyroidism Status: Chronic Assessment & Plan: She was continued on levothyroxine. TSH was 0.88. Exam Sepsis Risk: Severe Sepsis Risk ERVIN LOPES MD Jun 20, 2018 10:04
[2018-06-20] MEDS ORDERED: WATER STERILE(*) 10 ML VIAL 10 ML ONE (10:11)
[2018-06-20] MEDS: diphenhydrAMINE 25 MG CAP PO SCH ×3 (10:14→20:31)
--- NOTE | 2018-06-20 10:24 | Pharmacy Note ---
Vancomycin Management Note Vanco Dosing Note Vancomycin Management Note Vanco Dosing Note Pharmacy Services Pharmacokinetic Dosing Consult, Vancomycin Pharmacy has been consulted for dosing and monitoring of vancomycin for 82 yo F for osteomyelitis. Pertinent Past Medical History: CHF, Pneumonia, Osteomyelitis (L foot), a fib, MVR, DM2, Anemia, RA, Hypothyroid Antibiotics prior to admission; Yes, currently on Levofloxacin for aspiration pneumonia, today is day 4 of treatment for pneumonia Additional Antimicrobials: 06/16/18- Levofloxacin 750mg IV Q48H - day 4 06/19/18- Vancomycin 1.5g IV x 1, random level pending on 06/20/18 @12 Patient Information: Height (cm): ? (not 12.7cm) Actual Body Weight (ABW): 57 kg Pertinent Lab Tests WHITE BLOOD COUNT 13.6 (93.1% neuts) NEUTROPHILS 12.7 BLOOD UREA NITROGEN 42 SCR 1.5 (CrCL ~26ml/min) VANCOMYCIN TROUGH VANCOMYCIN RANDOM - pending for 06/20/18 @ 1200 Culture Results: None pending Consider Blood Cx- already on Levofloxacin Assessment: CrCl 26 ml/min Renal function is deteriorating...will watch labs to determine if worsening or improving Vancomycin Monitoring Assessment Goal Vancomycin Trough Level: 15-20 mcg/mL Plan: 1) Vancomycin 25 mg/kg loading dose (based on ABW): 1.5g IV x 1 2) Vancomycin maintenance dose (based on ABW): 750mg IV Q18H (prior regimen) 3) Vancomycin monitoring: Trough/Random ordered for 06/20/18 @1200 (18 h) Pharmacy will continue to monitor daily and adjust regimen as appropriate. Pt with rash since Jun, most likely related to Primaxin, will watch closely. May need to stop Vancomycin and switch to daptomycin. Potentially may also need to switch levofloxacin to clindamycin for aspiration pneumonia component. Added steroid and diphenhydramine for rash. Thank you for the consult. Pam Heaton, PharmD, BCOP [facility] [place] Jun 20, 2018 10:22
--- NOTE | 2018-06-20 10:32 | RADIOLOGY IMAGING REPORT ---
[place] [facility] [place] NAME[place] Kinsey Hwang : 1935 MR: [id number] V: [id number] EXAM DATE: ORDERING PHYSICIAN: ERVIN LOPES TECHNOLOGIST: Location: [facility] Patient: Kinsey Hwang : 1935 Visit/Account:[id number] Date of Sevice: 06/20/2018 Portable chest, one view. HISTORY: Fever, hypoxia. COMPARISON: 06/16/2018. A left upper extremity PICC tip projects on the superior cavoatrial junction. Surgical wires are pre sent in the sternum. A metal valve projects on the heart. Moderate cardiomegaly is unchanged. The thoracic aorta is elongated and calcified. Pulmonary vessels are minimally engorged. The lungs are slightly voluminous. Interstitial markings are thickened bilaterally, slightly decreased. The pleur al surfaces are unremarkable. IMPRESSION: Moderate cardiomegaly without arabella congestive heart failure. COPD. Aortic atherosclerosis. Report Dictated By: Zach Pendleton MD at 06/20/2018 10:04 AM Report E-Signed By: Zach Pendleton MD at 06/20/2018 10:27 AM WSN:[id number]
[2018-06-20] MEDS: INSULIN HUM LISPRO 100 UN/ML 3 ML VIAL SUBQ PRN ×3 (11:42→20:53)
--- NOTE | 2018-06-20 11:42 | Antimicrobial Stewardship ---
Antimicrobial Stewardship Empiricly appropriate: Yes (Levofloxacin - Aspiration Pneumonia, Vancomycin - Osteomyelitis of the Foot) Significant PMH: Yes (Afib, osteomyelitis, CHF, MVR) Support empiric regimen: Yes Comment Pt with a rash, uncertain what drug is causing it, but will continue watching, likely imipenem Approriate Cultures done: No (Cultures not re-drawn on levofloxacin, chest xray ordered) Organism identified: Yes (Prior Cultures (wound) from the foot: MRSA) Renal/Hepatic dosing: Yes (Scr is improving Scr =1.3, CrCl ~29ml/min) Serum concentration checked: Yes (Vancomycin Trough Pending- 1200 06/20/18) Reviewed for Drug Interaction: Yes Monitored for Toxicities: Yes Determine cumulative duration: Day 2 of therapy - osteomyelitis of the L foot Determine standard duration: 6 weeks Verified plan for regimen: Yes Comment 82 yo F with a history of MRSA in L foot wound who was on ECF and was transferred to the floor for possible sepsis. Currently undergoing treatment for aspiration pneumonia and has had a rash since Jun. Tmax 101.2 WBC 13.8 (92.8% neuts) BP 82/47 Lactate 3.8, now wnl Scr 1.5, now1.3 CrCL ~29 ml/min Bone Scan- showed likely osteomyelitis Chest xray- does not show a significant infiltrate, does show pleural effusions Abdominal CT- showed a lateral wall hematoma Likely infectious process occurring. Restarted Vancomycin 1.5 g IV x 1, then 750mg IV q18h, continue Vancomycin 750mg IV Q48H. WIll continue these and add steroids and diphenhydramine and will re-assess the rash. If we need to change the Vancomycin, then next best option would be daptomycin to complete 6 weeks of therapy for osteomyelitis. Pam Heaton, PharmD, BCOP [facility] [place] Jun 20, 2018 11:42
[2018-06-20] MEDS: VANCOMYCIN HCL(*) 0.750 GM ADD 0.75 GM in NS(*) 0.9% 250 ML ADDVAN BAG 250 ML IVPB SCH (12:55)
[2018-06-20] MEDS ORDERED: WARFARIN SOD 2 MG TAB PO SCH (13:00)
--- NOTE | 2018-06-20 13:57 | Medical Nutrition Therapy ---
Nutrition Anthropometrics Height (Inches): 60.00 Height (Calculated Centimeters: 152.848982 Weight (Pounds): 123 Weight (Calculated Kilograms): 56.019 Jackson Nutrition Score: Adequate Jackson Nutrition Risk Score: 17 Dietary Referral Nutrition Risk Factors: Non-Healing Wound Nutrition Risk Comment: States weighed 118# before this hospitalization Nutritional Diagnosis Nutritional Risk Acuity 2: Swallowing Problem, Abcess/Non-Healing Wound Nutritional Risk Acuity 3: Fair Appetite Past Medical History: T2DM, RA, CHF, Neuropathy Nutritional Acuity: 2-Moderate Nutrition Diagnosis: Swallowing Difficulties Nutrition Etiology: Physiological Causes Nutrition Problem/Etiology/Sym: AEB dx aspiration pneumonia Energy Requirement: 1675 (M- St J X 1.5 SF based on est dry wt 105#) Protein Requirement: 71 (1.5gm/kg est dry wt 105#.) Fluid Requirement: 1200 (25gm/kg est dry wt) Diet Type: Diabetic, Dysphagia Stage 2 Drug: Warfarin Do Not Serve Any of the Follow: Broccoli, Brussel Sprouts, Spinach, [place] Lettuce, Cranberry Juice Additional Diet Restrictions: OFFER SF NUT SUPPLMENT + PROTEIN POWDER IN APPROPRIATE FOODS Nutrition Monitoring & Eval Nutrition Goals: Eat 50-100% Meal RD Patient Assessment Time: [address] Assessment Type: RD Assessment Patient Nutrition Acuity: 2-Moderate Follow Up Date: Jun 25, 2018 Nutritional Comment: 06/19 Pt admitted for aspiration pneumonia. Pt was evaluated by S[facility] and no diet or consistancy modifications were recommended. Dr has placed pt on dyspagia 2 diet with 2400 kcal ADA. Pt may have difficulites consuming 2400 kcal as est kcal needs ~ 1700 kcal. Pt has increased nutr needs r/t open wound to toe. Pt ate 100% of dinner last night but 0 at breakfast. Will offer nutr supplments and protein powder to increase kcal and protein intake. Pt has gained 18# (17%) since 05/30. Pt does have 3+ edema LE. Anticipate wt loss when edema resolved. BG ranging 96- 152. BUN and creatinine elevated to 39/1.3. Will cont to monitor and encourage intake. PARTH MCFARLAND Jun 20, 2018 13:57
[2018-06-20 15:32] VITALS: BP 112/73
[2018-06-20] MEDS ORDERED: LEVOFLOXACIN/D5W 750 MG/150 ML 150 ML IVPB SCH (18:00)
[2018-06-20 19:51] VITALS: BP 111/77
[2018-06-20] MEDS ORDERED: PROMETHAZINE 25 MG/ML 1 ML AMP IVP PRN (20:25)
[2018-06-21] MEDS: NS(*) 0.9% 1000 ML BAG 1,000 ML IV PRN ×2 (01:16→15:40)
[2018-06-21] MEDS: diphenhydrAMINE 25 MG CAP PO SCH (02:25)
[2018-06-21 02:28] VITALS: BP 118/79
[2018-06-21 04:29] VITALS: BP 123/83
--- NOTE | 2018-06-21 05:17 | NUR ---
When going to check on the patient I observed her sitting on the floor next to her bed on her buttocks, arms at her side, and legs in front of her. Denies pain, denies hitting her head, no injuries observed. Pt states she was attempted to look for her winter coat that she believed to be in a bag across the room for when she leaves the facility. Nadege lift and 3 staff assist to return pt to bed. Vital signs within normal limits. KASHMIR Mcclendon informed provider of fall with no injuries. Bed alarm in place. When asking the pt if she knows how to call for help if she needs it she responded "Yes, push the orange call nurse button," and correctly pointed to the call light.
[2018-06-21] MEDS: ALBUTEROL/IPRATROPIUM 3 ML NEB NEB SCH ×3 (05:52→17:08)
[2018-06-21] MEDS: VANCOMYCIN HCL(*) 0.750 GM ADD 0.75 GM in NS(*) 0.9% 250 ML ADDVAN BAG 250 ML IVPB SCH (06:02)
[2018-06-21] MEDS: LEVOTHYROXINE SOD 0.088 MG TAB PO SCH (06:02)
[2018-06-21 06:04] LABS: INR 3.09
[2018-06-21 06:06] LABS: PLATELET COUNT, AUTOMATED 153 K/uL (150-450)
[2018-06-21 07:17] VITALS: BP 145/93
[2018-06-21] MEDS: INSULIN HUM LISPRO 100 UN/ML 3 ML VIAL SUBQ PRN ×2 (08:19→12:12)
[2018-06-21] MEDS: CETIRIZINE HCL 10 MG TAB PO SCH (09:55)
--- NOTE | 2018-06-21 10:45 | SLP BEDSIDE SWALLOW EVALUATION ---
SPEECH THERAPY ASSESSMENT Ordering Physician: Elvin Mohan Clinician: Rachel Crawford MS, [facility] Type of Assessment: Bedside Dysphagia Evaluation Patient: Kinsey Hwang : [birth year] Evaluation Date: 06/21/18 BACKGROUND The patient is an 82 year old female with lengthy course of hospitalization complicated by suspected, recurrent aspiration with respiratory infection. See medical record for detailed information. The pt experienced a choking episode while hospitalized with scrambled eggs removed from the airway. She was subsequently evaluated at the bedside by the ST department while in the extended care facility with mostly unremarkable results, apart from rapid, maladaptive self-feeding habits and increased work of breathing during PO intake. She was also previously evaluated by a speech-language pathologist in August of 2011 due to concerns for dysphagia. The pts symptoms were found to be consistent with esophageal dysfunction, and an esophagram was recommended. Esophagram illustrated evidence of presbyesophagus, mild esophageal residue, and a small hiatal hernia. Penetration was also observed with barium liquid; however, penetration is often considered a normal swallow deviation in older adults. An ST evaluation was ordered to analyze oropharyngeal swallow structure and function, and to develop recommendations for potential diet texture modifications, aspiration precautions, and compensatory strategies. Primary Medical Diagnosis: pneumonia Pain Scale (0-10): none reported; appears comfortable. LOC / Participation: Alert and cooperative. Follows instructions: Yes. Orientation: A&O x4 Functional Communication Deficits impact swallow function/safety, or response to therapy: No; however, the pt may benefit from intermittent supervision/reminders during participation in meals as a result of maladaptive self-feeding patterns DYSPHAGIA Sialorrhea: No Xerostomia: No. Hygiene: WFL Supplemental Oxygen Use: No. >94 on RA Respiratory Rate: Variable. Increased work of breathing during mastication of solids. COPD Dx: No. Pain with Swallow: Denies. Pt seen at the bedside for clinical swallow assessment. Deep, wet, congested cough at baseline. Oromotor exam was remarkable for restricted labial movement and deep grooves on lingual surface. Administered PO trials of thin liquids via cup and straw sip, pureed solids, mechanically altered solids, and regular solids. Overall, oral and pharyngeal phases of swallow were WFL for normal PO intake. Subjective, overt analysis continues to be unremarkable. Pt w/ appropriate mastication time, adequate bolus formation, timely a-p transit, and clearance of material from oral cavity. Pharyngeally, pt exhibited timely swallow initiation and no coughing, vocal changes, or throat clearing across PO trials. Of note, pt cont with some impulsive self-feeding behaviors w/ rapid consumption of solids despite visibly increased work of breathing during mastication phase. Pt responded to cues for decreased rate of intake, and may benefit from intermittent reminders to take breaks for respiration and oropharyngeal clearance. Pt with decreased coordination noted between respiration and deglutition as a result of compromised respiratory status and elevated O2 needs. Although the pt is not presenting with overt signs of aspiration during PO intake, hx of choking and clinical presentation is concerning for silent aspiration. Recommend completion of an objective, modified barium swallow study. ST ASSESSMENT SUMMARY Aspiration Risk: Mildly elevated. Negative prognostic indicators include hx of choking, maladaptive self-feeding patterns, compromised respiratory status, and variable O2 needs. Known hx of esophageal dysphagia may further elevate risk for reflux aspiration and difficulty with passage through PES. Speech Therapy Need Recommend completion of modified barium swallow study. ST will continue to analyze swallow status and evolve diet recommendations, compensatory strategies, and aspiration precautions as appropriate. ST will also continue to provide patient and staff education re: aspiration precautions and safe swallow strategies to minimize risk for further respiratory compromise. RECOMMENDATIONS 1. Diet: Regular, thin liquids. 2. Medications: Whole, ok with thin liquids. 3. Compensatory Techniques: regular oral hygiene, upright positioning during PO intake, cues to consume small bites/sips, one bite/sip at a time, take rest breaks for respiration. 4. Supervision with meals/snacks: Offer intermittent reminders for swallow safety and continue to monitor impulsive behaviors during PO intake. POC 1. Patient will participate in a modified barium swallow study to objectively analyze pharyngeal swallow function and rule out silent aspiration. 2. Patient will execute compensatory swallow strategies and adhere to safe swallow precautions with min verbal/visual cues during participation in mealtime activities. 3. The patient will safely and efficiently tolerate regular diet and thin liquids with independent implementation of safe swallow strategies and no s/s of aspiration. Prognosis: good, motivation to participate, high prior level of PO intake Thank you for this referral. Rachel Crawford M.S., [facility] Speech Therapist [*] [place]
--- NOTE | 2018-06-21 10:46 | NUR ---
BEDSIDE DYSPHAGIA ASSESSMENT Refer to full report for detailed info. Although the pt is not presenting with overt signs of aspiration during PO intake, silent aspiration is suspected. Recommend completion of an objective, modified barium swallow study. Pt also cont with some impulsive self-feeding behaviors w/ rapid consumption of solids despite visibly increased work of breathing during mastication phase. Coordination of respiration and deglutition is reduced as a result of compromised respiratory status and variable O2 needs. RECOMMENDATIONS 1. MBSS 2. Diet: Regular, thin liquids. 3. Medications: Whole, ok with thin liquids, one at a time. 4. Compensatory Techniques: regular oral hygiene, upright positioning during PO intake, cues to consume small bites/sips, one bite/sip at a time, take rest breaks for respiration. 5. Supervision with meals/snacks: Offer intermittent reminders for swallow safety and continue to monitor impulsive behaviors during PO intake. [*]
--- NOTE | 2018-06-21 11:12 | NUR ---
Occupational Therapy Impression OT eval complete. Pt appearing slightly more confused this date. Easily reoriented. Min A supine to sit. CGA ambulation with RW. Pt reports "I just feel tired all the time, I feel like I am sleeping fine." Seated up in chair at end of tx. SpO2 WNL on room air. Continue POC to improve endurance and tolerance for ADLs. Occupational Therapy Goals 1) Pt will be Min A UB/LB dressing. 2) Pt will be Min A toilet task. 3) Pt will be SBA grooming seated. Patient's Goal
[2018-06-21 11:17] VITALS: BP 126/94
[2018-06-21] MEDS ORDERED: BARIUM SULFATE 148 GM POWDER ONE (11:43)
[2018-06-21] MEDS ORDERED: BARIUM SULFATE 240 ML ORAL SUS (NECTAR) ONE (11:43)
--- NOTE | 2018-06-21 12:30 | SLP MODIFIED BARIUM SWALLOW ---
MODIFIED BARIUM SWALLOW STUDY REPORT Ordering Physician: Elvin Mohan Clinician: Rachel Crawford MS, CCC-FILTER WASHER Type of Assessment: [facility] [place] Patient: Kinsey Smith : 35 Evaluation Date: 06/21/18 BACKGROUND The patient is an 82 year old female who presents for a modified barium swallow study (MBSS) due to concern for silent aspiration, in addition to repeated choking episodes while hospitalized. Clinical swallow assessment was mostly unremarkable, apart from maladaptive, rapid self-feeding habits and increased work of breathing during mastication phase. Pt with hx of an esophagram in 2011 with evidence of presbyesophagus, mild esophageal residue, and a small hiatal hernia. Penetration was also observed with barium liquid; however, penetration is often considered a normal swallow deviation in older adults. ASSESSMENT Primary Medical Diagnosis: pneumonia Pain Scale (0-10): none reported; appears comfortable. LOC / Participation: Alert, somewhat somnolent, cooperative. Follows instructions: Yes. Orientation: A&O x3 (disoriented to situation/medical etiology & pathology) Sialorrhea: No Xerostomia: No. Hygiene: WFL Supplemental Oxygen Use: Respiratory Rate: Variable. Increased work of breathing during mastication of solids. COPD Dx: Yes. Pain with Swallow: Denies. In conjunction with radiology, the pt was seated in the lateral view and analyzed with assisted trials of the following consistencies: thin liquids via single cup sip and consecutive cup sip, thin liquids via straw, pureed solids, mechanically altered solids, advanced solids, regular solids, and a 1cm barium pill paired with water. * Indicates impairment ORAL PHASE - mild to moderate impairment *Lip Closure: mild reduction with anterior spillage coating outer labial surfaces. *Tongue Control during Bolus Hold: mild reduction with premature posterior loss of liquid component with trials of mixed consistencies. *Bolus preparation and mastication: prolonged and laborious mastication of hard solids with incomplete bolus formation during trials of regular and advanced consistencies. Bolus transport/Lingual motion: WFL. Oral Residue: Trace amounts, coating lingual surface PHARYNGEAL PHASE - mild Impairment Tongue Base Retraction: WFL. Contact against posterior pharyngeal wall. *Initiation of Pharyngeal Swallow: mild deviation with variable swallow onset. With thin liquids, small portion of material intermittently reached the pyriform sinus prior to quick swallow onset. With solids, swallow was initiated with bolus in the valleculae. Soft palate elevation: WFL Laryngeal elevation: WFL Anterior hyolaryngeal excursion: WFL Epiglottic inversion: WFL Laryngeal Vestibule Closure: complete closure achieved. Flash penetration occurred with large, consecutive straw sips of thin liquids. Material quickly and efficiently ejected from airway with [id number] closure of the vestibule. *Pharyngeal stripping wave: Mild reduction in pharyngeal stripping wave, likely contributing to mild pharyngeal residue *Pharyngeal residue: Mild residue in valleculae and mild to moderate pyriform sinuses with thin liquid trials. *UES opening: Obstruction of flow with large posterior prominence consistent with a CP bar. *ESOPHAGEAL STAGE Contents (barium pill, barium liquid) slow to pass through the LES. Stasis observed in distal esophagus. Pt also with history of presbyesophagus. Bulging also noted in posterior cervical esophagus against contrast. A GI referral is recommended. Oral phase deficits characterized by restricted mandibular movement and decreased rotary pattern for mastication with prolonged, laborious, and incomplete bolus formation. Pt required two swallows (piecemeal deglutition) to clear small bites of advanced and regular solids from oral cavity. Pharyngeally, pt exhibited mild delay in swallow onset with solid textures reaching the valleculae and liquid consistencies reaching the pyriform sinus prior to pharyngeal swallow initiation. Pharyngeal stripping wave was mildly reduced, which may have contributed to mild residue observed in the valleculae and the pyriform sinuses with thin liquid trials. At the UES, the pt exhibited a rather large posterior prominence/bulging consistent with a cricopharyngeal bar. The epiglottis achieved complete contact with the arytenoid cartilage, resulting in complete closure of the laryngeal vestibule dinng the swallow. With large, consecutive cups sips, flash penetration was noted (PAS 2). This is considered a normal deviation in swallow function. Although aspiration was not witnessed during this pts MBSS, maladaptive, rapid self-feeding patterns paired with shortness of breath, evidence of esophageal dysphagia, and posterior prominence near the UES may result in inhalation of food/liquids, or reflux aspiration. Penetration/Aspiration Scale (PAS)*: Thin liquids (large, consecutive cup sips): Score of 2, Material enters the airway, remains above the vocal folds, and is ejected from the airway. All other consistencies: Score of 1, Material does not enter airway *(Kevenk et al. 1996) SUMMARY and RECOMMENDATIONS Aspiration Risk: Mildly elevated. Negative prognostic indicators include hx of choking, maladaptive self-feeding patterns, compromised respiratory status, and variable O2 needs. Esophageal dysphagia may further elevate risk for reflux aspiration and difficulty with passage through UES. Recommend GI referral. Dysphagia Outcome Severity Scale: Level 5; mild dysphagia. It is recommended that the pt consume mechanically altered solids to compensate for oral phase deficits, and that the pt receive distant supervision at meals to modify impulsive self-feeding patterns. Speech Therapy Need ST will continue to analyze swallow status and evolve diet recommendations, compensatory strategies, and aspiration precautions as appropriate. ST will also continue to provide patient and staff education re: aspiration precautions and safe swallow strategies to minimize risk for further respiratory compromise. RECOMMENDATIONS 1. Diet: mechanically altered diet, thin liquids. 2. Medications: Whole, ok with thin liquids. 3. Compensatory Techniques: regular oral hygiene, upright positioning during PO intake, cues to consume small bites/sips, one bite/sip at a time, take rest breaks for respiration. 4. Supervision with meals/snacks: Offer intermittent reminders for swallow safety and continue to monitor impulsive behaviors during PO intake. 5. Referral: GI consult POC 1. Patient will execute compensatory swallow strategies and adhere to safe swallow precautions with min verbal/visual cues during participation in mealtime activities. 2. The patient will safely and efficiently tolerate regular diet and thin liquids with independent implementation of safe swallow strategies and no s/s of aspiration. Prognosis: good, no previously reported history of aspiration pneumonia, high prior level of PO intake Thank you for this referral. Rachel Crawford M.S., [facility]-FILTER WASHER Speech Therapist [*] [place]
--- NOTE | 2018-06-21 12:33 | NUR ---
MODIFIED BARIUM SWALLOW STUDY SUMMARY See full report for detailed info Mild to moderate oral and mild pharyngeal dysphagia. No aspiration. Flash penetration with large, consecutive cup sips (WNL) Restricted mandibular movement with reduced rotary pattern for mastication resulting in prolonged, laborious mastication of solids and incomplete bolus formation. Recommend mechanically altered solids (Dysphagia II). Obstruction of flow noted near the UES with large posterior prominence against contrast consistent with a CP bar. Further bulging noted throughout posterior esophagus. Material slow to pass through the LES to the stomach. Stasis observed in distal esophagus. Pt also with history of presbyesophagus. A GI referral is recommended. Although aspiration was not witnessed during this pts MBSS, maladaptive, rapid self-feeding patterns paired with shortness of breath, evidence of esophageal dysphagia, oral phase deficits, and posterior prominence near the UES may result in inhalation of food/liquids, or reflux aspiration. RECOMMENDATIONS 1. Diet: mechanically altered diet, thin liquids. 2. Medications: Whole, ok with thin liquids. 3. Compensatory Techniques: regular oral hygiene, upright positioning during PO intake, cues to consume small bites/sips, one bite/sip at a time, take rest breaks for respiration. 4. Supervision with meals/snacks: Offer intermittent reminders for swallow safety and continue to monitor impulsive behaviors during PO intake. 5. Referral: GI consult
[2018-06-21] MEDS: WARFARIN SOD 1 MG TAB PO SCH (13:27)
--- NOTE | 2018-06-21 13:48 | Hospitalist Progress Note ---
Subjective Progress Notes Subjective Staff noted that her face was very erythematous last night which persists today, but less severe. She did have a fall last night without complication. She denies SOB, itchiness, skin discomfort. Physical Exam Vital Signs Date Time Temp Pulse Resp B/P (MAP) Pulse Ox O2 Delivery O2 Flow Rate FiO2 06/21/18 11:22 82 20 06/21/18 11:17 96.8 126/94 (105) 100 06/21/18 11:14 Room Air 06/20/18 20:01 2.0 Intake and Output 06/21/18 07:00 Intake Total 1587 ml Output Total 700 ml Balance 887 ml Intake Oral 337 ml IV Total 1250 ml Output Urine Total 700 ml # Bowel Movements 3 General Appearance: Alert, Awake, No Acute Distress Neuro: No Gross deficits Cardiovascular: Regular Rate and Rhythm Respiratory: Clear to Auscultation GI: Other (mildly distended, soft, non-tender. No mass palpable) Integumentary: Other (Diffuse macular erythematous rash involving f castillo/trunk/legs) Result Diagram: 06/21/1844 06/21/18543 Assessment and Plan Problems: (1) Aspiration pneumonia Status: Acute Assessment & Plan: The patient was initially admitted to [facility] for a foot infection. She was transferred from the medical floor to [facility] for ongoing antibiotic therapy. She developed increased congestion and shortness of breath. Her x-ray suggested a left sided infiltrate with associated pleural effusion. She was transferred back to the medical floor and treated for possible aspiration pneumonia. She improved and was transferred back to [facility] on June 14. Later that day the patient had an episode of aspiration and apparently had scrambled eggs suctioned from her airway at that time. She was monitored and developed fever and increased O2 requirements a couple days later. She was pl aced on Levaquin and ST re-evaluated. There was no evidence of a swallowing problem and ST recommended the patient be upright for all oral intake. 06/19 the patient was noted to be weaker and more short of breath. She was also hypotensive. Labs were done and she was noted to have an elevated lactate. Her WBC was also elevated at nearly 14,000 with a left shift. Her creatinine was elevated as well. The patient was transferred back to the medical floor for treatment of aspiration pneumonia. She is currently on IV Levaquin and vancomycin. Stopping Levaquin now that she is afebrile and CXR continues to be clear. MBS today. (2) Abdominal distention Assessment & Plan: She has developed increased abdominal girth. CHF was considered, but a BNP on 06/17/[address] abdomen does not show significant ascites. 3 BM today. Will follow. (3) Rash Status: Acute Assessment & Plan: The patient developed a diffuse macular erythematous rash in the groin/abd/low back on 06/16/18. It was initially mild and non-pruritic but has persisted and worsened. Pharmacy reviewed medications and recommended stopping Mucinex. Her Lasix was also discontinued as she has a history of allergy to sulfa medications. She did receive a one time dose of Vancomycin on 06/16/18 and started Levaquin, but these occurred AFTER the rash was noted. In reviewing medications, it may be she has had a reaction to Primaxin. One time dose of IV steroids and 3 doses of Benadryl on 06/20/18 did not improve symptoms. Will stop Vancomycin and try daily Zytrec to minimize sedating affects. 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 Dr. Orantes has been following her as an outpatient. Purulent discharge was noted on initial evaluation and a wound culture has grown MRSA. A plain film was negative for osteomyelitis. Physical therapy is providing wound care. She completed a total 14 days therapy of Vancomycin on Jun.12. She then developed fever. There was concern for recurrent infection. MRI could not be done to to prosthetic MV. A 3 phase bone study was done. Osteomyelitis could not be ruled out. Surgery was consulted and recommended treating with Vancomycin for a complete 6 weeks as the patient is not a good surgical candidate. Vancomycin has been restarted. (5) Weakness Status: Acute Assessment & Plan: She was having more falls at home prior to admission. She had lost about 5 pounds in the last 12 days prior to admission. Prealbumin was low at 16.7 on admission and decreased to 12.3 on 06/16. OT/PT were following the patient. She was placed on SHANNAN to ensure adequate calorie intake and also adequate protein intake. Calorie count ordered. (6) Atrial fibrillation, controlled Status: Chronic Assessment & Plan: She was on chronic treatment with digoxin and warfarin. The digoxin was held secondary to bradycardia (HR in the 30's while sleeping) and concerns that it might be contributing to her falls. Her rate is controlled off the digoxin and she is no longer having the bradycardia. Looking back at EMR outpatient visits, her usual dose of Coumadin had been 1.5mg daily x 6 days per week and 2mg once per week. She did come in supra-therapeutic. Her INR was low on 1.5mg a day. She was placed on Lovenox while she was sub-therapeutic, but it will be stopped today as she developed an abdominal wall hematoma. Watch INR closely. (7) Mitral valve disorder Status: Acute Assessment & Plan: INR goal is 2.5-3.5. Lovenox was stopped today due to abdominal wall hematoma. Watch INR closely. (8) Anemia Status: Chronic Assessment & Plan: Iron studies showed a low iron level (on Niferex bid). Ferritin was normal, but could be due to acute inflammation. Stool was positive for occult blood. She did receive 2 units of red cells on 06/08. She was continued on anticoagulation secondary to the prosthetic MV and the high stroke risk. Hgb stabilized. PPI was started. B12 and folate were rechecked and were WNL. Will need to be monitored while on the medical floor. (9) Edema Status: Acute Assessment & Plan: Likely, secondary to poor nutrition. Prealbumin low. BNP wnl. No proteinuria. Liver function wnl, but albumin low. TSH wnl. (10) Urine retention Status: Acute Assessment & Plan: She had >300cc of PVR on ECF, so a catheter was placed. Will start Flomax and then can do a trial of Carr removal. (11) Type 2 diabetes mellitus without complications Status: Chronic Assessment & Plan: Metformin was initially held secondary to ARF and normal BS. She was placed on diet as tolerated secondary to the weight loss. AC and HS glucoses were followed. BS were adequate off of metformin so it was discontinued. (12) Acquired hypothyroidism Status: Chronic Assessment & Plan: She was continued on levothyroxine. TSH was 0.88. (13) Rheumatoid arthritis Status: Chronic Assessment & Plan: She is chronically on methotrexate, which was held due to active infection. Exam Sepsis Risk: No Definite Risk DHRUV VILLASENOR MD Jun 21, 2018 13:47
--- NOTE | 2018-06-21 13:55 | NUR ---
Physical Therapy Impression PT evchelo complete. Recommend short-term subacute rehab. Physical Therapy Goals 1. Mod I bed mobility. 2. SBA transfers. 3. SBA gait x 150' with RW. 4. SBA ascend/descend 6 stairs. Patient's Goals
--- NOTE | 2018-06-21 14:27 | Medical Nutrition Therapy ---
Nutrition Anthropometrics Height (Inches): 60.00 Height (Calculated Centimeters: 152.775933 Weight (Pounds): 123 Weight (Calculated Kilograms): 56.019 Jackson Nutrition Score: Adequate Jackson Nutrition Risk Score: 17 Dietary Referral Nutrition Risk Factors: Non-Healing Wound Nutrition Risk Comment: States weighed 118# before this hospitalization Physical Findings Physical Appearance: Skin Appearance Skin Appearance: Edema Edema Location Modifier: Both Edema Location: Lower Extremity Type of Edema: Degree of Edema: 4+ Gastrointestinal Symptoms GI Symtoms: Nausea Tube Present: Bowel Sounds: Recent Bowel Pattern: Incontinent Stool Characteristics: Nutritional Diagnosis Nutritional Risk Acuity 2: Swallowing Problem, Abcess/Non-Healing Wound Nutritional Risk Acuity 3: Fair Appetite Past Medical History: T2DM, RA, CHF, Neuropathy Nutritional Acuity: 2-Moderate Nutrition Diagnosis: Swallowing Difficulties Nutrition Etiology: Physiological Causes Nutrition Problem/Etiology/Sym: AEB dx aspiration pneumonia Energy Requirement: 1675 (M- St J X 1.5 SF based on est dry wt 105#) Protein Requirement: 71 (1.5gm/kg est dry wt 105#.) Fluid Requirement: 1200 (25gm/kg est dry wt) Diet Type: Diabetic, Dysphagia Stage 2 Drug: Warfarin Do Not Serve Any of the Follow: Broccoli, Brussel Sprouts, Spinach, [place] Lettuce, Cranberry Juice Additional Diet Restrictions: OFFER SF NUT SUPPLMENT + PROTEIN POWDER IN APPROPRIATE FOODS Nutrition Monitoring & Eval Nutrition Goals: Eat 50-100% Meal RD Patient Assessment Time: [address] Assessment Type: RD Re-Assessment Patient Nutrition Acuity: 2-Moderate Follow Up Date: Jun 25, 2018 Nutritional Comment: 06/19 Pt admitted for aspiration pneumonia. Pt was evaluated by SPL and no diet or consistancy modifications were recommended. has placed pt on dyspagia 2 diet with 2400 kcal ADA. Pt may have difficulites consuming 2400 kcal as est kcal needs ~ 1700 kcal. Pt has increased nutr needs r/t open wound to toe. Pt ate 100% of dinner last night but 0 at breakfast. Will offer nutr supplments and protein powder to increase kcal and protein intake. Pt has gained 18# (17%) since 05/30. Pt does have 3+ edema LE. Anticipate wt loss when edema resolved. BG ranging 96- 152. BUN and creatinine elevated to 39/1.3. Will cont to monitor and encourage intake. BK 06/21/17- Pt diet updated to include dyphagia 2 and calorie count. PT edema has worsened to 4+ pitting in BLE. Pt continues on warfarin and insulin with WBG ranging from 159-223mg/dL. Hgb is critically low at 8.7 and hct and RBC are both low at 27.1 and 2.94, respectively. BUN is elevated at 39. Total protein of 4.1 is low and albumin of 2.3 is low. Since addition of calorie count diet, pt has consumed 50% of meal served, RSA reports 1.00 starch and 0.5 meat servings. Using the diabetic exchange, this is equivalent to 155 kcals. The patient was also left with a Boost nutritional supplement with 240 kcals. If the Boost is finished, the total meal kcals are 395 kcals. This will not meet pt need of approximately 1700kcal/day. It is also much lower than the 2400 recommended ADA diet. To meet the pt needs of 1700 kcal/day, each meal must have 566 kcals. If pt cannot consume that volume in one sitting, meals can be reduced to approximately 300kcal/meal with the addition of 3 200kcal snacks. Continue to monitor intakes and kcals.-PRASANTH CHEEMA Jun 21, 2018 14:27
--- NOTE | 2018-06-21 15:05 | RADIOLOGY IMAGING REPORT ---
FACILITY: [facility] [place] NAME: Kinsey Hwang : 1935 MR: [id number] V: [id number] EXAM DATE: ORDERING PHYSICIAN: DHRUV VILLASENOR TECHNOLOGIST: Location: [facility] Patient: Kinsey Hwang : 1935 Visit/Account:[id number] Date of Sevice: 06/21/2018 Exam type: ESOPH VIDEO SWALLOWING History: concern for aspiration Comparison: None. Findings: The modify barium swallow was performed by the speech pathologist. Fluoroscopic assistance was provi ded. Patient received thin barium a barium tablet,. Solid soft solids and regular solids and mixed textures. The patient demonstrated mild to moderate oral dysphagia, mild pharyngeal dysphasia and tr castillo laryngeal penetration and possible esophageal dysphasia please see the speech pathologist report for complete details. The fluoroscopy dose area product was 372.87 micro-Edmonds per meter squared IMPRESSION: 1. As above Report Dictated By: Patt Kevin MD at 06/21/2018 3:01 PM Report E-Signed By: Patt Kevin MD at 06/21/2018 3:02 PM WSN:[email or web address]
[2018-06-21 15:43] VITALS: BP 106/73
[2018-06-21] MEDS: ACETAMINOPHEN 325 MG TAB PO PRN (15:51)
[2018-06-21] MEDS: DAPTOMYCIN IV SCH (18:26)
[2018-06-21] MEDS: NS 0.9% IV SCH (18:26)
[2018-06-21 19:11] VITALS: BP 108/58
[2018-06-21] MEDS: TAMSULOSIN HCL 0.4 MG CAP PO SCH (20:43)
[2018-06-22] MEDS: ALBUTEROL/IPRATROPIUM 3 ML NEB NEB SCH ×3 (05:23→16:50)
[2018-06-22 05:41] LABS: PLATELET COUNT, AUTOMATED 193 K/uL (150-450)
[2018-06-22] MEDS: LEVOTHYROXINE SOD 0.088 MG TAB PO SCH (05:48)
[2018-06-22 05:52] LABS: INR 4.01
[2018-06-22 07:09] VITALS: BP 103/67
[2018-06-22] MEDS: CETIRIZINE HCL 10 MG TAB PO SCH (08:24)
--- NOTE | 2018-06-22 11:29 | NUR ---
Physical Therapy Impression Pt able to perform bed mobility with Min A, stand with CGA, and ambulate with RW x 100' with RW and CGA. Pt with improved tolerance to activity compared to previous sessions. Recommend short-term subacute rehab prior to discharging to her daughter's home. Physical Therapy Goals 1. Mod I bed mobility. 2. SBA transfers. 3. SBA gait x 150' with RW. 4. SBA ascend/descend 6 stairs. Patient's Goals
[2018-06-22] MEDS ORDERED: WARFARIN SOD 1 MG TAB PO ONE (13:00)
[2018-06-22 14:09] VITALS: BP 131/72
--- NOTE | 2018-06-22 14:53 | Hospitalist Progress Note ---
Subjective Progress Notes Subjective The patient has no new complaints. She states her rash is less pruritic. She denies shortness of breath. Physical Exam Vital Signs Date Time Temp Pulse Resp B/P (MAP) Pulse Ox O2 Delivery O2 Flow Rate FiO2 06/22/18 14:09 97.6 93 18 131/72 (91) 93 Room Air 06/20/18 20:01 2.0 Intake and Output 06/22/18 06:59 Intake Total 1536.72 ml Output Total 900 ml Balance 636.72 ml Intake Oral 240 ml IV Total 1296.72 ml Output Urine Total 900 ml # Bowel Movements 4 General Appearance: Alert, Awake, No Acute Distress, Other (Face is red with peeling of her skin.) Neuro: No Gross deficits Eyes: PERRLA Cardiovascular: Regular Rate and Rhythm, Other (Edema is 3-4+, both LE.) Respiratory: No Respiratory Distress, Other (Scattered rhonchi bilaterally which clear signifcantly after coughing.) GI: Soft and Non-Tender Extremities: Warm, Perfused, Edema (3-4+ bilaterally.) Integumentary: Other (Pressure ulcer over buttock is covered with dry Mepilex. ) Psych: Appropriate Mood & Affect Result Diagram: 06/22/1851806/22/18518 Assessment and Plan Problems: (1) Aspiration pneumonia Status: Acute Assessment & Plan: The patient was initially admitted to [facility] for a foot infection. She was transferred from the medical floor to [facility] for ongoing antibiotic therapy. She developed increased congestion and shortness of breath. Her x-ray suggested a left sided infiltrate with associated pleural effusion. She was transferred back to the medical floor and treated for possible aspiration pneumonia. She improved and was transferred back to [facility] on June 14. Later that day the patient had an episode of aspiration and apparently had scrambled eggs suctioned from her airway at that time. She was monitored and developed fever and increased O2 requirements a couple days later. She was placed on Levaquin and ST re-evaluated her. There was no evidence of a swallowing problem and ST recommended the patient be upright for all oral intak e. 06/19 the patient was noted to be weaker and more short of breath. She was also hypotensive. Labs were done and she was noted to have an elevated lactate. Her WBC was also elevated at nearly 14,000 with a left shift. Her creatinine was elevated as well. The patient was transferred back to the medical floor for treatment of aspiration pneumonia. CXR without evidence of infiltrate. Levaquin stopped and she is afebrile now. Modified barium swallow did show problems and she has been switched to a dysphagia 2 diet with thin liquids. (2) Abdominal distention Assessment & Plan: She has developed increased abdominal girth. CHF was considered, but a BNP on 06/17/[address] abdomen does not show significant ascites. 3 BM today. Will follow. (3) Rash Status: Acute Assessment & Plan: The patient developed a diffuse macular erythematous rash in the groin/abd/low back on 06/16/18. It was initially mild and non-pruritic but has persisted and worsened. Pharmacy reviewed medications and recommended stopping Mucinex. Her Lasix was also discontinued as she has a history of allergy to sulfa medications. She did receive a one time dose of Vancomycin on 06/16/18 and started Levaquin, but these occurred AFTER the rash was noted. In reviewing medications, it may be she has had a reaction to Primaxin. One time dose of IV steroids and 3 doses of Benadryl on 06/20/18 did not improve symptoms. Vancomycin was stopped and she is now on daily daptomycin. Daily Zytrec was added to minimize sedating affects. Her rash seems to be improving today. 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 Dr. Orantes has been following her as an outpatient. Purulent discharge was noted on initial evaluation and a wound culture has grown MRSA. A plain film was negative for osteomyelitis. Physical therapy is providing wound care. She completed a total 14 days therapy of Vancomycin on Jun.12. She then developed fever. There was concern for recurrent infection. MRI could not be done to to prosthetic MV. A 3 phase bone study was done. Osteomyelitis could not be ruled out. Surgery was consulted and recommended treating with Vancomycin for a complete 6 weeks as the patient is not a good surgical candidate. Vancomycin was restarted and then stopped due to concern that it may be contributing to her rash. She is now on daptomycin. (5) Weakness Status: Acute Assessment & Plan: She was having more falls at home prior to admission. She had lost about 5 pounds in the last 12 days prior to admission. Prealbumin was low at 16.7 on admission and decreased to 12.3 on 06/16. OT/PT were following the patient. She was placed on SHANNAN to ensure adequate calorie intake and also adequate protein intake. Calorie count ordered. (6) Atrial fibrillation, controlled Status: Chronic Assessment & Plan: She was on chronic treatment with digoxin and warfarin. The digoxin was held secondary to bradycardia (HR in the 30's while sleeping) and concerns that it might be contributing to her falls. Her rate is controlled off the digoxin and she is no longer having the bradycardia. Looking back at EMR outpatient visits, her usual dose of Coumadin had been 1.5mg daily x 6 days per week and 2mg once per week. She did come in supra-therapeutic. Her INR was low on 1.5mg a day. She was placed on Lovenox while she was sub-therapeutic, but it will be stopped today as she developed an abdominal wall hematoma. Watch INR closely. (7) Mitral valve disorder Status: Acute Assessment & Plan: INR goal is 2.5-3.5. Lovenox was stopped today due to abdominal wall hematoma. Watch INR closely. (8) Anemia Status: Chronic Assessment & Plan: Iron studies showed a low iron level (on Niferex bid). Ferritin was normal, but could be due to acute inflammation. Stool was positive for occult blood. She did receive 2 units of red cells on 06/08. She was continued on anticoagulation secondary to the prosthetic MV and the high stroke risk. Hgb stabilized. PPI was started. B12 and folate were rechecked and were WNL. Will need to be monitored while on the medical floor. (9) Edema Status: Acute Assessment & Plan: Likely, secondary to poor nutrition. Prealbumin low. BNP wnl. No proteinuria. Liver function wnl, but albumin low. TSH wnl. (10) Urine retention Status: Acute Assessment & Plan: She had >300cc of PVR on ECF, so a catheter was placed. Will start Flomax and then can do a trial of Carr removal. (11) Type 2 diabetes mellitus without complications Status: Chronic Assessment & Plan: Metformin was initially held secondary to ARF and normal BS. She was placed on diet as tolerated secondary to the weight loss. AC and HS glucoses were followed. BS were adequate off of metformin so it was discontinued. (12) Acquired hypothyroidism Status: Chronic Assessment & Plan: She was continued on levothyroxine. TSH was 0.88. (13) Rheumatoid arthritis Status: Chronic Assessment & Plan: She is chronically on methotrexate, which was held due to active infection. Time Spent on Plan of Care: < 30 min Exam Sepsis Risk: No Definite Risk NIKOLAI LOPES MD Jun 22, 2018 14:53
[2018-06-22] MEDS: DAPTOMYCIN IV SCH (18:18)
[2018-06-22] MEDS: NS 0.9% IV SCH (18:18)
[2018-06-22] MEDS: TAMSULOSIN HCL 0.4 MG CAP PO SCH (20:43)
[2018-06-22] MEDS: INSULIN HUM LISPRO 100 UN/ML 3 ML VIAL SUBQ PRN (20:44)
[2018-06-22 20:58] VITALS: BP 143/92
[2018-06-23] MEDS: ALBUTEROL/IPRATROPIUM 3 ML NEB NEB SCH ×3 (05:17→17:18)
[2018-06-23] MEDS: LEVOTHYROXINE SOD 0.088 MG TAB PO SCH (05:56)
[2018-06-23 06:18] LABS: INR 3.7
[2018-06-23 06:19] LABS: PLATELET COUNT, AUTOMATED 228 K/uL (150-450)
[2018-06-23 08:46] VITALS: BP 114/85
[2018-06-23] MEDS: CETIRIZINE HCL 10 MG TAB PO SCH (08:55)
--- NOTE | 2018-06-23 10:37 | Medical Nutrition Therapy ---
Nutrition Anthropometrics Height (Inches): 60.00 Height (Calculated Centimeters: 152.975868 Weight (Pounds): 123 Weight (Calculated Kilograms): 56.019 Jackson Nutrition Score: Probably Inadequate Jackson Nutrition Risk Score: 15 Dietary Referral Nutrition Risk Factors: Non-Healing Wound Nutrition Risk Comment: States weighed 118# before this hospitalization Physical Findings Physical Appearance: Skin Appearance Skin Appearance: Edema Edema Location Modifier: Right Edema Location: Foot Type of Edema: Degree of Edema: 2+ Gastrointestinal Symptoms GI Symtoms: Nausea Tube Present: Bowel Sounds: Recent Bowel Pattern: Incontinent Stool Characteristics: Nutritional Diagnosis Nutritional Risk Acuity 2: Swallowing Problem, Abcess/Non-Healing Wound Nutritional Risk Acuity 3: Fair Appetite Past Medical History: T2DM, RA, CHF, Neuropathy Nutritional Acuity: 2-Moderate Nutrition Diagnosis: Swallowing Difficulties Nutrition Etiology: Physiological Causes Nutrition Problem/Etiology/Sym: AEB dx aspiration pneumonia Energy Requirement: 1675 (M- St J X 1.5 SF based on est dry wt 105#) Protein Requirement: 71 (1.5gm/kg est dry wt 105#.) Fluid Requirement: 1200 (25gm/kg est dry wt) Diet Type: Diabetic, Dysphagia Stage 2 Calorie Count: 698 Drug: Warfarin Food Likes: baby red potatoes, vanilla yogurt, vanilla boost Do Not Serve Any of the Follow: Broccoli, Brussel Sprouts, Spinach, [place] Lettuce, Cranberry Juice Additional Diet Restrictions: OFFER SF NUT SUPPLMENT + PROTEIN POWDER IN APPROPRIATE FOODS Diet Comment To RSA: OFFER SF NUT SUPPLEMENT w/ EACH MEAL Nutrition Monitoring & Eval RD Patient Assessment Time: [address] Assessment Type: RD Re-Assessment Patient Nutrition Acuity: 2-Moderate Follow Up Date: Jun 24, 2018 Nutritional Comment: 06/19 Pt admitted for aspiration pneumonia. Pt was evaluated by [facility] and no diet or consistancy modifications were recommended. Dr has placed pt on dyspagia 2 diet with 2400 kcal ADA. Pt may have difficulites consuming 2400 kcal as est kcal needs ~ 1700 kcal. Pt has increased nutr needs r/t open wound to toe. Pt ate 100% of dinner last night but 0 at breakfast. Will offer nutr supplments and protein powder to increase kcal and protein intake. Pt has gained 18# (17%) since 05/30. Pt does have 3+ edema LE. Anticipate wt loss when edema resolved. BG ranging 96- 152. BUN and creatinine elevated to 39/1.3. Will cont to monitor and encourage intake. BK 06/21/17- Pt diet updated to include dyphagia 2 and calorie count. PT edema has worsened to 4+ pitting in BLE. Pt continues on warfarin and insulin with WBG ranging from 159-223mg/dL. Hgb is critically low at 8.7 and hct and RBC are both low at 27.1 and 2.94, respectively. BUN is elevated at 39. Total protein of 4.1 is low and albumin of 2.3 is low. Since addition of calorie count diet, pt has consumed 50% of meal served, RSA reports 1.00 starch and 0.5 meat servings. Using the diabetic exchange, this is equivalent to 155 kcals. The patient was also left with a Boost nutritional supplement with 240 kcals. If the Boost is finished, the total meal kcals are 395 kcals. This will not meet pt need of approximately 1700kcal/day. It is also much lower than the 2400 recommended ADA diet. To meet the pt needs of 1700 kcal/day, each meal must have 566 kcals. If pt cannot consume that volume in one sitting, meals can be reduced to approximately 300kcal/meal with the addition of 3 200kcal snacks. Continue to monitor intakes and kcals.-MICHAEL 06/23/17: pt consumed 689.75 kcals on 06/22/18. 0.2 meat at breakfast, 0.5 starch 0.5 meat 1 fruit and 1 vegetable at lunch, and 1 starch and 0.75 meat at dinner. Additionally, 1 scoop of protein powder and 1 boost were consumed. Kcals were calculated using diabetic exchange calculation and adding in the nutr supplements. -PRASANTH CHEEMA Jun 23, 2018 10:36
[2018-06-23] MEDS: NS(*) 0.9% 1000 ML BAG 1,000 ML IV PRN (10:58)
--- NOTE | 2018-06-23 14:40 | Hospitalist Progress Note ---
Subjective Progress Notes Subjective 82F admitted for pneumonia. HERBERT overnight, continues to sound bad on examination , tachypneic when awake but no increased O2 demands. Afebrile. Patient Complains of: Respiratory: Cough Gastrointestinal: No Nausea, No Vomiting Physical Exam Vital Signs Date Time Temp Pulse Resp B/P (MAP) Pulse Ox O2 Delivery O2 Flow Rate FiO2 06/23/18 11:16 82 20 06/23/18 11:10 97 Room Air 06/23/18 08:46 98.6 114/85 (95) 06/20/18 20:01 2.0 Intake and Output 06/23/18 07:00 Intake Total 120 ml Output Total 800 ml Balance -680 ml Intake Oral 120 ml Output Urine Total 800 ml # Bowel Movements 3 General Appearance: Alert, Awake, No Acute Distress Neuro: No Gross deficits ENT: Normal Cardiovascular: Normal Rhythm & Peripheral Pulses Respiratory: No Respiratory Distress GI: Soft and Non-Tender Extremities: Soft and Non Tender, Warm, Pulses, Perfused; No Edema; Other (ulnar deviation, some remaining facial redness) Integumentary: Skin Intact without Lesion / Mass Result Diagram: 06/23/1854406/23/18544 Assessment and Plan Problems: (1) Aspiration pneumonia Status: Acute Assessment & Plan: The patient was initially admitted to [facility] for a foot infection. She was transferred from the medical floor to [facility] for ongoing antibiotic therapy. She developed increased congestion and shortness of breath. Her x-ray suggested a left sided infiltrate with associated pleural effusion. She was transferred back to the medical floor and treated for possible aspiration pneumonia. She improved and was transferred back to [facility] on June 14. Later that day the patient had an episode of aspiration and apparently had scrambled eggs suctioned from her airway at that time. She was monitored and developed fever and increased O2 requirements a couple days later. She was placed on Levaquin and ST re-evaluated her. There was no evidence of a swallowing problem and recommended the patient be upright for all oral intake. 06/19 the patient was noted to be weaker and more short of breath. She was also hypotensive. Labs were done and she was noted to have an elevated lactate. Her WBC was also elevated at nearly 14,000 with a left shift. Her creatinine was elevated as well. The patient was transferred back to the medical floor for treatment of aspiration pneumonia. CXR without evidence of infiltrate. Modified barium swallow did show problems and she has been switched to a dysphagia 2 diet with thin liquids. Suspect aspiration pneumonitis and fever are occurring without infection. (2) Abdominal distention Assessment & Plan: She has developed increased abdominal girth. CHF was considered, but a BNP on 06/17/[address] abdomen does not show significant ascites. 3 BM today. Will follow. (3) Rash Status: Acute Assessment & Plan: The patient developed a diffuse macular erythematous rash in the groin/abd/low back on 06/16/18. It was initially mild and non-pruritic but h as persisted and worsened. Pharmacy reviewed medications and recommended stopping Mucinex. Her Lasix was also discontinued as she has a history of allergy to sulfa medications. She did receive a one time dose of Vancomycin on 06/16/18 and started Levaquin, but these occurred AFTER the rash was noted. In reviewing medications, it may be she has had a reaction to Primaxin. One time dose of IV steroids and 3 doses of Benadryl on 06/20/18 did not improve symptoms. Vancomycin was stopped and she is now on daily daptomycin. Daily Zytrec was added to minimize sedating affects. Rash improved, some mucosal ulcerations were noted as well. Added Primaxin and vancomycin to medication allergies given rash with mucosal ulceration. 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 Dr. Orantes has been following her as an outpatient. Purulent discharge was noted on initial evaluation and a wound culture has grown MRSA. A plain film was negative for osteomyelitis. Physical therapy is providing wound care. She completed a total 14 days therapy of Vancomycin on Jun.12. She then developed fever. There was concern for recurrent infection. MRI could not be done to to prosthetic MV. A 3 phase bone study was done. Osteomyelitis could not be ruled out. Surgery was consulted and recommended treating with Vancomycin for a complete 6 weeks as the patient is not a good surgical candidate. Vancomycin was restarted and then stopped due to concern that it may be contributing to her rash. She is now on daptomycin. (5) Weakness Status: Acute Assessment & Plan: She was having more falls at home prior to admission. She had lost about 5 pounds in the last 12 days prior to admission. Prealbumin was low at 16.7 on admission and decreased to 12.3 on 06/16. OT/PT were following the patient. She was placed on SHANNAN to ensure adequate calorie intake and also adequate protein intake. Calorie count ordered. (6) Atrial fibrillation, controlled Status: Chronic Assessment & Plan: She was on chronic treatment with digoxin and warfarin. The digoxin was held secondary to bradycardia (HR in the 30's while sleeping) and concerns that it might be contributing to her falls. Her rate is controlled off the digoxin and she is no longer having the bradycardia. Looking back at EMR outpatient visits, her usual dose of Coumadin had been 1.5mg daily x 6 days per week and 2mg once per week. She did come in supra-therapeutic. Her INR was low on 1.5mg a day. She was placed on Lovenox while she was sub-therapeutic, but it will be stopped today as she developed an abdominal wall hematoma. Watch INR closely. (7) Mitral valve disorder Status: Acute Assessment & Plan: INR goal is 2.5-3.5. Lovenox was stopped today due to abdominal wall hematoma. Watch INR closely. (8) Anemia Status: Chronic Assessment & Plan: Iron studies showed a low iron level (on Niferex bid). Ferritin was normal, but could be due to acute inflammation. Stool was positive for occult blood. She did receive 2 units of red cells on 06/08. She was continued on anticoagulation secondary to the prosthetic MV and the high stroke risk. Hgb stabilized. PPI was started. B12 and folate were rechecked and were WNL. Will need to be monitored while on the medical floor. (9) Edema Status: Acute Assessment & Plan: Likely, secondary to poor nutrition. Prealbumin low. BNP wnl. No proteinuria. Liver function wnl, but albumin low. TSH wnl. (10) Urine retention Status: Acute Assessment & Plan: She had >300cc of PVR on ECF, so a catheter was placed. Will start Flomax and then can do a trial of Carr removal. (11) Type 2 diabetes mellitus without complications Status: Chronic Assessment & Plan: Metformin was initially held secondary to ARF and normal BS. She was placed on diet as tolerated secondary to the weight loss. AC and HS glucoses were followed. BS were adequate off of metformin so it was discontinued. (12) Acquired hypothyroidism Status: Chronic Assessment & Plan: She was continued on levothyroxine. TSH was 0.88. (13) Rheumatoid arthritis Status: Chronic Assessment & Plan: She is chronically on methotrexate, which was held due to active infection. As infection is under control will resume once weekly dosing. Exam Sepsis Risk: No Definite Risk CARRERA NIRANJAN CHAPMAN DO Jun 23, 2018 14:40
[2018-06-23 14:58] VITALS: BP 132/65
[2018-06-23] MEDS ORDERED: METHOTREXATE 2.5 MG TAB PO SCH (15:15)
[2018-06-23] MEDS: DAPTOMYCIN IV SCH (17:31)
[2018-06-23] MEDS: NS 0.9% IV SCH (17:31)
[2018-06-23 19:43] VITALS: BP 113/84
[2018-06-23] MEDS: TAMSULOSIN HCL 0.4 MG CAP PO SCH (21:16)
[2018-06-23] MEDS: ACETAMINOPHEN 325 MG TAB PO PRN (21:16)
[2018-06-24 02:11] VITALS: BP 107/57
[2018-06-24] MEDS: ALBUTEROL/IPRATROPIUM 3 ML NEB NEB SCH ×3 (05:26→17:04)
[2018-06-24 05:47] LABS: INR 3.11
[2018-06-24] MEDS: LEVOTHYROXINE SOD 0.088 MG TAB PO SCH (06:31)
[2018-06-24 06:40] VITALS: BP 122/75
[2018-06-24] MEDS: CETIRIZINE HCL 10 MG TAB PO SCH (09:23)
[2018-06-24] MEDS: FOLIC ACID 1 MG TAB PO SCH (09:23)
--- NOTE | 2018-06-24 10:20 | Hospitalist Progress Note ---
Subjective Progress Notes Subjective She has no complaints this morning. She had no acute events overnight. Patient Complains of: Cardiovascular: No: Chest Pain Respiratory: No: Shortness of Breath Physical Exam Vital Signs Date Time Temp Pulse Resp B/P (MAP) Pulse Ox O2 Delivery O2 Flow Rate FiO2 06/24/18 07:40 93 Room Air 06/24/18 06:40 98.0 84 20 122/75 (91) 06/20/18 20:01 2.0 Intake and Output 06/24/18 07:00 Intake Total 806 ml Output Total 850 ml Balance -44 ml Intake Oral 736 ml IV Total 70 ml Output Urine Total 850 ml Caloric Intake Amount 698 # Bowel Movements 1 General Appearance: Alert, Awake, No Acute Distress, Afebrile Neuro: No Gross deficits Cardiovascular: Regular Rate and Rhythm Respiratory: No Respiratory Distress, Other (diffuse rhonci throughout bilateral lung hatfield) GI: Soft and Non-Tender Extremities: Warm, Perfused, Edema (3+ bilaterally) Psych: Alert & Oriented X3, Appropriate Mood & Affect Result Diagram: 06/23/1854406/23/18544 Assessment and Plan Problems: (1) Aspiration pneumonia Status: Acute Assessment & Plan: The patient was initially admitted to [facility] for a foot infection. She was transferred from the medical floor to [facility] for ongoing antibiotic therapy. She developed increased congestion and shortness of breath. Her x-ray suggested a left sided infiltrate with associated pleural effusion. She was transferred back to the medical floor and treated for possible aspiration pneumonia. She improved and was transferred back to [facility] on June 14. Later that day the patient had an episode of aspiration and apparently had scrambled eggs suctioned from her airway at that time. She was monitored and developed fever and increased O2 requirements a couple days later. She was placed on Levaquin and ST re-evaluated her. There was no evidence of a swallowing problem and recommended the patient be upright for all oral intake. 06/19 the patient was noted to be weaker and more short of breath. She was also hypotensive. Labs were done and she was noted to have an elevated lactate. Her WBC was also elevated at nearly 14,000 with a left shift. Her creatinine was elevated as well. The patient was transferred back to the medical floor for treatment of aspiration pneumonia. CXR without evidence of infiltrate. Modified barium swallow did show problems and she has been switched to a dysphagia 2 diet with thin liquids. Suspect aspiration pneumonitis and fever are occurring without infection. (2) Abdominal distention Assessment & Plan: She has developed increased abdominal girth. CHF was considered, but a BNP on 06/17/[address] abdomen does not show significant ascites. Will follow. (3) Rash Status: Acute Assessment & Plan: The patient developed a diffuse macular erythematous rash in the groin/abd/low back on 06/16/18. It was initially mild and non-pruritic but has persisted and worsened. Pharmacy reviewed medications and recommended stopping Mucinex. Her Lasix was also discontinued as she has a history of allergy to sulfa medications. She did receive a one time dose of Vancomycin on 06/16/18 and started Levaquin, but these occurred AFTER the rash was noted. In reviewing medications, it may be she has had a reaction to Primaxin. One time dose of IV steroids and 3 doses of Benadryl on 06/20/18 did not improve symptoms. Vancomycin was stopped and she is now on daily daptomycin. Daily Zytrec was added to minimize sedating affects. Rash improved, some mucosal ulcerations were noted as well. Added Primaxin and vancomycin to medication allergies given rash with mucosal ulceration. 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 Dr. Orantes has been following her as an outpatient. Purulent discharge was noted on initial evaluation and a wound culture has grown MRSA. A plain film was negative for osteomyelitis. Physical therapy is providing wound care. She completed a total 14 days therapy of Vancomycin on Jun.12. She then developed fever. There was concern for recurrent infection. MRI could not be done to to prosthetic MV. A 3 phase bone study was done. Osteomyelitis could not be ruled out. Surgery was consulted and recommended treating with Vancomycin for a complete 6 weeks as the patient is not a good surgical candidate. Vancomycin was restarted and then stopped due to concern that it may be contributing to her rash. She is now on daptomycin. She will transfer back to [facility] tomorrow for ongoing antibiotics. (5) Weakness Status: Acute Assessment & Plan: She was having more falls at home prior to admission. She had lost about 5 pounds in the last 12 days prior to admission. Prealbumin was low at 16.7 on admission and decreased to 12.3 on 06/16. OT/PT were following the patient. She was placed on SHANNAN to ensure adequate calorie intake and also adequate protein intake. Calorie count ordered. (6) Atrial fibrillation, controlled Status: Chronic Assessment & Plan: She was on chronic treatment with digoxin and warfarin. The digoxin was held secondary to bradycardia (HR in the 30's while sleeping) and concerns that it might be contributing to her falls. Her rate is controlled off the digoxin and she is no longer having the bradycardia. Looking back at EMR outpatient visits, her usual dose of Coumadin had been 1.5mg daily x 6 days per week and 2mg once per week. She did come in supra-therapeutic. Her INR was low on 1.5mg a day. She was placed on Lovenox while she was sub-therapeutic, but it will be stopped as she developed an abdominal wall hematoma. Watch INR closely. Warfarin will be resumed today. (7) Mitral valve disorder Status: Acute Assessment & Plan: INR goal is 2.5-3.5. Lovenox was stopped today due to abdominal wall hematoma. Watch INR closely. (8) Anemia Status: Chronic Assessment & Plan: Iron studies showed a low iron level (on Niferex bid). Ferritin was normal, but could be due to acute inflammation. Stool was positive for occult blood. She did receive 2 units of red cells on 06/08. She was continued on anticoagulation secondary to the prosthetic MV and the high stroke risk. Hgb stabilized. PPI was started. B12 and folate were rechecked and were WNL. Will need to be monitored while on the medical floor. (9) Edema Status: Acute Assessment & Plan: Likely, secondary to poor nutrition. Prealbumin low. BNP wnl. No proteinuria. Liver function wnl, but albumin low. TSH wnl. (10) Urine retention Status: Acute Assessment & Plan: She had >300cc of PVR on ECF, so a catheter was placed. Will start Flomax and then can do a trial of Carr removal. (11) Type 2 diabetes mellitus without complications Status: Chronic Assessment & Plan: Metformin was initially held secondary to ARF and normal BS. She was placed on diet as tolerated secondary to the weight loss. AC and HS glucoses were followed. BS were adequate off of metformin so it was discontinued. (12) Acquired hypothyroidism Status: Chronic Assessment & Plan: She was continued on levothyroxine. TSH was 0.88. (13) Rheumatoid arthritis Status: Chronic Assessment & Plan: She is chronically on methotrexate, which was held due to active infection. As infection is under control will resume once weekly dosing. Exam Sepsis Risk: No Definite Risk LARRY JAVIERP Jun 24, 2018 10:20
[2018-06-24 11:21] VITALS: BP 115/88
--- NOTE | 2018-06-24 12:48 | NUR ---
Physical Therapy Impression Pt able to tolerate ambulation x 100' with RW and CGA. Recommend short-term subacute rehab prior to discharging to her daughter's home. Physical Therapy Goals 1. Mod I bed mobility. 2. SBA transfers. 3. SBA gait x 150' with RW. 4. SBA ascend/descend 6 stairs. Patient's Goals
--- NOTE | 2018-06-24 12:57 | NUR ---
ST TX SUMMARY Pt executed compensatory swallow strategies with min cues following initial instruction during consumption of mechanically altered solids and thin liquids. Emphasis placed on slowed rate of intake, allowing ample time for bolus formation, and consuming small bite/sip sizes. Pt somewhat limited by pain in oral cavity w/ sore on lingual surface. Pt with reduced shortness of breath during mastication phase vs prior encounters. Pt cont with prolonged mastication time due to oral weakness. Will cont to follow to provide training in compensations and evolve diet modification recs. Will also address oral phase deficits via lingual and labial exercises. Pt tolerated all PO trials with no overt or subtle signs of aspiration. RECOMMENDATIONS 1. Diet: mechanically altered diet, thin liquids. 2. Medications: Whole, ok with thin liquids. 3. Compensatory Techniques: regular oral hygiene, upright positioning during PO intake, cues to consume small bites/sips, one bite/sip at a time, take rest breaks for respiration. 4. Supervision with meals/snacks: Offer intermittent reminders for swallow safety and continue to monitor impulsive behaviors during PO intake.
[2018-06-24] MEDS: WARFARIN SOD 1 MG TAB PO SCH (13:40)
--- NOTE | 2018-06-24 14:30 | NUR ---
Occupational Therapy Impression Pt. performed bed mobility with SBA, with SPO2 above 96% on room air. Pt. required Max A to damion slippers. Pt. left with PT to complete ambulation activity. Pt. will d/c to [facility] tomorrow for continued rehab. Continue with POC. Occupational Therapy Goals 1) Pt will be Min A UB/LB dressing. 2) Pt will be Min A toilet task. 3) Pt will be SBA grooming seated. Patient's Goal
[2018-06-24] MEDS: DAPTOMYCIN IV SCH (17:47)
[2018-06-24] MEDS: NS 0.9% IV SCH (17:47)
[2018-06-24 20:38] VITALS: BP 118/81
[2018-06-24] MEDS: TAMSULOSIN HCL 0.4 MG CAP PO SCH (20:47)
[2018-06-24] MEDS: NS(*) 0.9% 1000 ML BAG 1,000 ML IV PRN (22:18)
[2018-06-25 03:26] VITALS: BP 110/59
[2018-06-25] MEDS: ALBUTEROL/IPRATROPIUM 3 ML NEB NEB SCH (05:59)
[2018-06-25 06:09] LABS: INR 3.34
[2018-06-25] MEDS: LEVOTHYROXINE SOD 0.088 MG TAB PO SCH (06:21)
[2018-06-25 06:25] LABS: PLATELET COUNT, AUTOMATED 210 K/uL (150-450)
[2018-06-25 08:02] VITALS: BP 109/75
[2018-06-25] MEDS: CETIRIZINE HCL 10 MG TAB PO SCH (08:48)
[2018-06-25] MEDS: FOLIC ACID 1 MG TAB PO SCH (08:48)
--- NOTE | 2018-06-25 08:55 | Transfer Summary (ECF/SWB) ---
Transfer Summary ([facility]) Problems: (1) Aspiration pneumonia Status: Acute Assessment & Plan: The patient was initially admitted to [facility] for a foot infection. She was transferred from the medical floor to [facility] for ongoing antibiotic therapy. She developed increased congestion and shortness of breath. Her x-ray suggested a left sided infiltrate with associated pleural effusion. She was transferred back to the medical floor and treated for possible aspiration pneumonia. She improved and was transferred back to [facility] on June 14. Later that day the patient had an episode of aspiration and apparently had scrambled eggs suctioned from her airway at that time. She was monitored and developed fever and increased O2 requirements a couple days later. She was placed on Levaquin and re-evaluated her. There was no evidence of a swallowing problem and recommended the patient be upright for all oral intake. 06/19 the patient was noted to be weaker and more short of breath. She was also hypotensive. Labs were done and she was noted to have an elevated lactate. Her WBC was also elevated at nearly 14,000 with a left shift. Her creatinine was elevated as well. The patient was transferred back to the medical floor for treatment of aspiration pneumonia. Her chest x-ray did not show any evidence of infiltrate. A barium swallow did show evidence of aspiration, and she was placed on a dysphagia diet. (2) Abdominal distention Assessment & Plan: She has developed increased abdominal girth. CHF was considered, but a BNP on 06/17/[address] abdomen does not show significant ascites. (3) Rash Status: Acute Assessment & Plan: The patient developed a diffuse macular erythematous rash in the groin/abd/low back on 06/16/18. It was initially mild and non-pruritic but has persisted and worsened. Pharmacy reviewed medications and recommended stopping Mucinex. Her Lasix was also discontinued as she has a history of allergy to sulfa medications. She did receive a one time dose of Vancomycin on and started Levaquin, but these occurred AFTER the rash was noted. In reviewing medications, it may be she has had a reaction to Primaxin. One time dose of IV steroids and 3 doses of Benadryl on 06/20/18 did not improve symptoms. Vancomycin was stopped and she is now on daily daptomycin. Daily Zytrec was added to minimize sedating affects. Rash improved, some mucosal ulcerations were noted as well. It is believed that the rash was secondary to vancomycin, which has been discontinued. 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 Dr. Orantes has been following her as an outpatient. Purulent discharge was noted on initial evaluation and a wound culture has grown MRSA. A plain film was negative for osteomyelitis. Physical therapy is providing wound care. She completed a total 14 days therapy of Vancomycin on Jun.12. She then developed fever. There was concern for recurrent infection. MRI could not be done to to prosthetic MV. A 3 phase bone study was done. Osteomyelitis could not be ruled out. Surgery was consulted and recommended treating with Vancomycin for a complete 6 weeks as the patient is not a good surgical candidate. Vancomycin was restarted and then stopped due to concern that it may be contributing to her rash. She is now on daptomycin for this. (5) Weakness Status: Acute Assessment & Plan: She was having more falls at home prior to admission. She had lost about 5 pounds in the last 12 days prior to admission. Prealbumin was low at 16.7 on admission and decreased to 12.3 on 06/16. OT/PT were following the patient. She was placed on SHANNAN to ensure adequate calorie intake and also adequate protein intake. Calorie count ordered. (6) Atrial fibrillation, controlled Status: Chronic Assessment & Plan: She was on chronic treatment with digoxin and warfarin. The digoxin was held secondary to bradycardia (HR in the 30's while sleeping) and concerns that it might be contributing to her falls. Her rate is controlled off the digoxin and she is no longer having the bradycardia. Looking back at EMR outpatient visits, her usual dose of Coumadin had been 1.5mg daily x 6 days per week and 2mg once per week. She did come in supra-therapeutic. Her INR was low on 1.5mg a day. She was placed on Lovenox while she was sub-therapeutic, but it will be stopped as she developed an abdominal wall hematoma. Her INR is therapeutic. (7) Mitral valve disorder Status: Acute Assessment & Plan: INR goal is 2.5-3.5. Lovenox was stopped today due to abdominal wall hematoma. Watch INR closely. (8) Anemia Status: Chronic Assessment & Plan: Iron studies showed a low iron level (on Niferex bid). Ferritin was normal, but could be due to acute inflammation. Stool was positive for occult blood. She did receive 2 units of red cells on 06/08. She was continued on anticoagulation secondary to the prosthetic MV and the high stroke risk. Hgb stabilized. PPI was started. B12 and folate were rechecked and were WNL. Will need to be monitored while on the medical floor. (9) Edema Status: Acute Assessment & Plan: Likely, secondary to poor nutrition. Prealbumin low. BNP wnl. No proteinuria. Liver function wnl, but albumin low. TSH wnl. (10) Urine retention Status: Acute Assessment & Plan: She had >300cc of PVR on ECF, so a catheter was placed. Will start Flomax and then can do a trial of Carr removal. (11) Type 2 diabetes mellitus without complications Status: Chronic Assessment & Plan: Metformin was initially held secondary to ARF and normal BS. She was placed on diet as tolerated secondary to the weight loss. AC and HS glucoses were followed. BS were adequate off of metformin so it was discontinued. (12) Acquired hypothyroidism Status: Chronic Assessment & Plan: She was continued on levothyroxine. TSH was 0.88. (13) Rheumatoid arthritis Status: Chronic Assessment & Plan: She is chronically on methotrexate, which was held due to active infection. As infection is under control will resume once weekly dosing. Latest Vital Signs Vital Signs Date Time Temp Pulse Resp B/P (MAP) Pulse Ox O2 Delivery O2 Flow Rate FiO2 06/25/18 08:02 97.8 80 20 109/75 (86) 95 Room Air 06/24/18 20:49 2.0 Result Diagram: 06/25/18 0546 06/25/18 0546 Condition: Improved Disposition: SNF/NH Treatment Goals and Plan Patient requires fdc for End of Life Care/Com[facility] and is ready for admission to [facility]. Any change in condition is described below. Services Required: PT, OT, Wound Care AURORA GASPAR DO Jun 25, 2018 08:55
[2018-06-25] MEDS ORDERED: INFLUENZA VIRUS VAC 0.5ML SYR IM ONLY ONE (09:00)
--- NOTE | 2018-06-25 12:54 | Medical Nutrition Therapy ---
Nutrition Anthropometrics Height (Inches): 60.00 Height (Calculated Centimeters: 152.185709 Weight (Pounds): 123 Weight (Calculated Kilograms): 56.019 Jackson Nutrition Score: Probably Inadequate Jackson Nutrition Risk Score: 16 Dietary Referral Nutrition Risk Factors: Non-Healing Wound Nutrition Risk Comment: States weighed 118# before this hospitalization Nutritional Diagnosis Nutritional Risk Acuity 2: Swallowing Problem, Abcess/Non-Healing Wound Nutritional Risk Acuity 3: Fair Appetite Past Medical History: T2DM, RA, CHF, Neuropathy Nutritional Acuity: 2-Moderate Nutrition Diagnosis: Swallowing Difficulties Nutrition Etiology: Physiological Causes Nutrition Problem/Etiology/Sym: AEB dx aspiration pneumonia Energy Requirement: 1675 (M- St J X 1.5 SF based on est dry wt 105#) Protein Requirement: 71 (1.5gm/kg est dry wt 105#.) Fluid Requirement: 1200 (25gm/kg est dry wt) Diet Type: Diabetic, Dysphagia Stage 2 Calorie Count: 485 Calorie/Protein Count Date: Jun 23, 2018 Drug: Warfarin Food Likes: baby red potatoes, vanilla yogurt, vanilla boost Do Not Serve Any of the Follow: Broccoli, Brussel Sprouts, Spinach, [place] Lettuce, Cranberry Juice Additional Diet Restrictions: OFFER SNACKS BETWEEN MEALS, PUT PROTEIN POWDER IN FOODS Diet Comment To RSA: PROVIDE SF NUTR SUPPLMENT WHEN PICKING UP MEAL TRAY Nutrition Monitoring & Eval Nutrition Goals: Eat 50-100% Meal Nutrition Follow-Up: Poor Intake RD Patient Assessment Time: [address] Assessment Type: RD Re-Assessment Patient Nutrition Acuity: 2-Moderate Follow Up Date: Jun 25, 2018 Nutritional Comment: 06/19 Pt admitted for aspiration pneumonia. Pt was evaluated by SPL and no diet or consistancy modifications were recommended. Dr has placed pt on dyspagia 2 diet with 2400 kcal ADA. Pt may have difficulites consuming 2400 kcal as est kcal needs ~ 1700 kcal. Pt has increased nutr needs r/t open wound to toe. Pt ate 100% of dinner last night but 0 at breakfast. Will offer nutr supplments and protein powder to increase kcal and protein intake. Pt has gained 18# (17%) since 05/30. Pt does have 3+ edema LE. Anticipate wt loss when edema resolved. BG ranging 96- 152. BUN and creatinine elevated to 39/1.3. Will cont to monitor and encourage intake. BK 06/21/17- Pt diet updated to include dyphagia 2 and calorie count. PT edema has worsened to 4+ pitting in BLE. Pt continues on warfarin and insulin with WBG ranging from 159-223mg/dL. Hgb is critically low at 8.7 and hct and RBC are both low at 27.1 and 2.94, respectively. BUN is elevated at 39. Total protein of 4.1 is low and albumin of 2.3 is low. Since addition of calorie count diet, pt has consumed 50% of meal served, RSA reports 1.00 starch and 0.5 meat servings. Using the diabetic exchange, this is equivalent to 155 kcals. The patient was also left with a Boost nutritional supplement with 240 kcals. If the Boost is finished, the total meal kcals are 395 kcals. This will not meet pt need of approximately 1700kcal/day. It is also much lower than the 2400 recommended ADA diet. To meet the pt needs of 1700 kcal/day, each meal must have 566 kcals. If pt cannot consume that volume in one sitting, meals can be reduced to approximately 300kcal/meal with the addition of 3 200kcal snacks. Continue to monitor intakes and kcals.-AKG 06/23/17: pt consumed 689.75 kcals on 06/22/18. 0.2 meat at breakfast, 0.5 starch 0.5 meat 1 fruit and 1 vegetable at lunch, and 1 starch and 0.75 meat at dinner. Additionally, 1 scoop of protein powder and 1 boost were consumed. Kcals were calculated using diabetic exchange calculation and adding in the nutr supplements. -AKG 04/24 Pt consumed 485 kcal 04/23. Pt not drinking nutr supplments. Will offer snacks between meals and provide nutr supplments at that time. PRATH PRINCE Jun 24, 2018 10:40
== END 2018-06-25 10:15 | DRG 178 ==
LOC: MED 16:43
PROVIDERS: ADMIT Family Medicine; ATTEND Family Medicine
DX: J69.0 Pneumonitis due to inhalation of food and vomit (principal); M86.9 Osteomyelitis, unspecified; R21 Rash and other nonspecific skin eruption; R53.1 Weakness; I48.2 Chronic atrial fibrillation; I05.9 Rheumatic mitral valve disease, unspecified; D50.9 Iron deficiency anemia, unspecified; R33.9 Retention of urine, unspecified; E11.9 Type 2 diabetes mellitus without complications; S91.302A Unspecified open wound, left foot, initial encounter; E03.9 Hypothyroidism, unspecified; M06.9 Rheumatoid arthritis, unspecified; I50.9 Heart failure, unspecified; I27.20 Pulmonary hypertension, unspecified; T36.0X5A Adverse effect of penicillins, initial encounter; T36.8X5A Adverse effect of other systemic antibiotics, initial encounter; Z88.2 Allergy status to sulfonamides; Z88.0 Allergy status to penicillin; Z91.040 Latex allergy status; Z79.01 Long term (current) use of anticoagulants; Z95.2 Presence of prosthetic heart valve; Z79.84 Long term (current) use of oral hypoglycemic drugs
CPT/HCPCS: 36415; 36416; 71045; 74150; 74230; 80202; 82040; 82247; 82310; 82374; 82435; 82565; 82947; 82948; 83605; 84075; 84132; 84155; 84295; 84450; 84460; 84520; 85025; 85610; 94640; 97161; 97163; 97166; A4216; J0878; J1956; J2550; J2930; J2997; J3370; J7030; J7050; J8610; Q0163

== ENCOUNTER 2018-06-25 10:15 | Inpatient (IN) | payer MEDICARE, OTHER ==
[2018-06-08 15:17] VITALS: Ht 154.9 cm; Wt 61.7 kg
[~2018-06-25] VITALS: Ht 154.9 cm; Wt 61.7 kg
[2018-06-25 10:35] VITALS: BP 108/56
[2018-06-25] MEDS ORDERED: ALBUTEROL/IPRATROPIUM 3 ML NEB ONE (11:00)
[2018-06-25] MEDS ORDERED: NS(*) 0.9% 1000 ML BAG 1,000 ML IV PRN (11:11)
[2018-06-25] MEDS: ALBUTEROL/IPRATROPIUM 3 ML NEB NEB SCH ×2 (11:25→17:05)
--- NOTE | 2018-06-25 12:35 | NUR ---
Physical Therapy Impression PT/OT ECF eval completed upon pt's readmission to ECF for further rehab. Please refer to ITS documentation for further information regarding eval. Physical Therapy Goals 1. SBA bed mobility. 2. SBA transfers. 3. SBA gait x 150' with appropriate assistive device. 4. Ascend/descend 2 stairs CGA. 5. Improve TUG to less than/equal to 29 seconds as indicator of improved safety with functional mobility. Patient's Goals
--- NOTE | 2018-06-25 13:09 | Medical Nutrition Therapy ---
Nutrition Anthropometrics Height (Inches): 61.00 Height (Calculated Centimeters: [phone] Weight (Pounds): 132 Weight (Calculated Kilograms): 59.874 Jackson Nutrition Score: Probably Inadequate Jackson Nutrition Risk Score: 14 Dietary Referral Nutrition Risk Factors: Diff. Swallowing, Non-Healing Wound, Special Diet Nutrition Risk Comment: States weighed 118# before this hospitalization Nutritional Diagnosis Nutritional Risk Acuity 2: Swallowing Problem, Abcess/Non-Healing Wound Past Medical History: T2DM, RA, CHF, Neuropathy Nutritional Acuity: 2-Moderate Nutrition Diagnosis: Swallowing Difficulties Nutrition Etiology: Physiological Causes Nutrition Problem/Etiology/Sym: AEB dx aspiration pneumonia Energy Requirement: 1675 (M- St J X 1.5 SF based on est dry wt 105#) Protein Requirement: 71 (1.5 g/kg based on est dry wt 105#) Fluid Requirement: 1200 (25ml/kg based on est dry wt 105#) Nutrition Intervention: Cont diet as ordered, Encourage intake, HS snack, Between meal supplement Drug: Warfarin Do Not Serve Any of the Follow: Broccoli, Brussel Sprouts, Spinach, [place] Lettuce, Cranberry Juice Additional Diet Restrictions: OFFER NUTR SUPPLMENTS Nutrition Monitoring & Eval Nutrition Goals: Eat 50-100% Meal RD Patient Assessment Time: [address] Assessment Type: RD Assessment Patient Nutrition Acuity: 2-Moderate Follow Up Date: Jul 02, 2018 Nutritional Comment: 06/25 Pt admitted s/p aspiration pneumonia. Pt on dysphagia 2 diet with thin liquids per SPL eval. Pt has increased nutr needs r/t open wound to toe. Wt is up 26% from est dry wt of 105# on 05/30/18. Pt has 2+ edema LE and 4+ edema to feet. Anticipate wt loss when edema resolved. Nutr significant low labs: Alb 2.2, prealb 12.3, Fe 19. CRP elevated at 8.3. A1c 5.9. BG elevated up to 153 past 3 days. Pt was eating 0-25% of meals on med floor. Will offfer nutr supplment to increase kcal and protein intake. PARTH MCFARLAND Jun 25, 2018 13:09
[2018-06-25] MEDS: WARFARIN SOD 1 MG TAB PO SCH (13:10)
--- NOTE | 2018-06-25 13:42 | NUR ---
Occupational Therapy Impression OT evaluation completed with PT. Please refer to reports for details regarding plan of care and goals. Occupational Therapy Goals 1. Pt. to perform showering activities with Mod A. 2. Pt. to perform toileting activities with Min A. 3. Pt. to perform grooming activities with Min A. 4. Pt. to increase Mica Index of ADL score by 2 points. 5. Pt. to perform dressing activities with Mod A. Patient's Goal
--- NOTE | 2018-06-25 14:12 | OT ECF NOTE ---
Type of Note: Initial Note Primary Medical Diagnosis: Pneumonia Occupational Therapy Evaluation Date: 06-25-18 SUBJECTIVE: Prior Hospitalization: 05/29/19 admitted to [facility] Medical unit for acute renal failure. Pt. has had 2 stays on [facility] medical unit (06-07-18 till 09-27) and (06-19-18 till 06-25-18), following being dx with aspiration pneumonia. Pt. is being admitted to [facility] from the [facility] medical unit for continued rehab. Prior Level of Function: Pt. was living alone prior to d/c admission. Prior Living Status: Pt. was residing in [facility]. Community Services: Home Accessibility: 15 stairs to access daughters apartment. Equipment Owned: [facility] Medical Complications/Past Medical History: Please refer to chart for details. Psychosocial Support: Supportive daughter in [place], [place] Pain Scale (0-10): No pain stated upon evaluation. OBJECTIVE: Strength: MMT: Right Left Shoulder Flexion [*] [*] Elbow Flexion [*] [*] Wrist Extension [*] [*] Office Automation Technician [*] [*] (5= normal, 4= good, 3= fair, 2= poor, 1= trace) ROM: severely limited in BUE's. Functional Transfer: Assistive Device: FWW Transfer Ability: CGA ADL: Upper body dressing: Assistive device: Upper body dressing ability: Moderate assistance Lower body dressing: Assistive device: Lower body dressing ability: Maximum assistance Toileting: N/T Assistive device: Toileting ability: Grooming/hygiene: Seated Assistive device: Grooming ability: Moderate assistance to brush hair and place clip in chair. Bathing:N/T Assistive device: Bathing ability: Standardized Assessment: Mica Index of Activities of Daily Living- Pt. scored 8/20 on this Index upon admission to [facility]. ASSESSMENT: Pt. is a 82 year old female who has been readmitted to [facility] for continued rehab following another stay on [facility] medical unit after being treated for pneumonia. Pt. plans to d/c to [place], [place] where her daughter resides, to stay with her daughter in her apartment with Care or to a penitentiary facility. Problem List/Current Limitations: Short Term Goals: 1. Pt. to perform showering activities with Mod A. 2. Pt. to perform toileting activities with Min A. 3. Pt. to perform grooming activities with Min A. 4. Pt. to increase Mica Index of ADL score by 2 points. 5. Pt. to perform dressing activities with Mod A. Halfway Goals: D/c home to daughters home. Patient Goals: d/c to daughters apartment Rehabilitation Prognosis: Fair Barriers to Discharge: cognitive decline PLAN: The patient will benefit from skilled occupational therapy services 5 times per week for 2 weeks including: Ther ex ADL training Safety training Ther act IADL training Transfer training Adaptive equip training Bed mobility Thank you for this referral. If you have any questions, concerns, or comments about this report or plan, please contact me at . Beba Pisano, OTR/L Occupational Therapist [facility]
[2018-06-25 17:00] VITALS: BP 98/65
[2018-06-25] MEDS: NS 0.9% IV SCH (18:00)
[2018-06-25] MEDS: DAPTOMYCIN IV SCH (18:00)
[2018-06-25] MEDS ORDERED: NS(*) 0.9% 500 ML BAG 500 ML ONE (18:45)
[2018-06-25] MEDS: TAMSULOSIN HCL 0.4 MG CAP PO SCH (20:31)
--- NOTE | 2018-06-26 05:02 | ECF H&P BLANK ---
[facility] H&P UPDATE History of Present Illness Chief Complaint Aspiration History of Present Illness This patient was transferred from extended care after a recurrent episode of aspiration. 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 Status: Acute (4) Mitral valve disorder Status: Acute (5) Primary pulmonary hypertension Status: Chronic (6) Rheumatoid arthritis with visceral or systemic involvement Status: Acute (7) Atrial fibrillation, controlled Status: Chronic (8) Type 2 diabetes mellitus without complications Status: Chronic (9) Mitral valve replaced Status: Chronic (10) Heart valve replaced by other means Status: Acute Home Meds Active Scripts Warfarin Sodium (WARFARIN SODIUM) 1 Mg Tablet, 1.5 MG PO QDAY, #45 TAB 11 Refills Prov:KACIE EMNDES MD 05/01/18 Spironolactone (SPIRONOLACTONE) 25 Mg Tablet, 1 TAB PO QDAY, #90 TAB 3 Refills Prov:KACIE MENDES MD 05/01/18 Levothyroxine Sodium (SYNTHROID) 88 Mcg Tablet, 1 TAB PO QDAY, #45 TAB 3 Refills Prov:KACIE MENDES MD 04/04/18 Methotrexate Sodium (METHOTREXATE) 2.5 Mg Tablet, 3 TAB PO QWEEK, #12 TAB 6 Refills Prov:KACIE MENDES MD 01/28/18 Furosemide (FUROSEMIDE) 40 Mg Tablet, 1 TAB PO QDAY, #90 TAB 4 Refills Prov:KACIE MENDES MD 12/04/17 Digoxin (DIGOXIN) 125 Mcg Tablet, 1 TAB PO DAILY, #90 TAB 3 Refills Prov:KACIE MENDES MD 08/07/17 Metformin Hcl (METFORMIN HCL) 500 Mg Tablet, 1 TAB PO QDAY, #90 TAB 3 Refills Prov:KACIE MENDES MD 08/07/17 Folic Acid (FOLIC ACID) 1 Mg Tablet, 1 MG PO QDAY, #90 TAB 3 Refills Prov:KACIE MENDES MD 08/07/17 Reported Medications Vit A,C & E/Lutein/Minerals (OCUVITE TABLET) 1 Each Tablet, 1 TAB PO BID 02/27/14 Calcium Carbonate/Vitamin D3 (CALCIUM 500 + D TABLET) 1 Each Tablet, 1 TAB PO BID 02/27/14 Allergies: Coded Allergies: Penicillins (Verified Allergy, Severe, hives, 12/28/16) Sulfa (Sulfonamide Antibiotics) (Verified Allergy, Intermediate, rash, 12/28/16) latex (Verified Allergy, Mild, RASH, 12/28/16) strawberry (Unverified Allergy, Unknown, 05/30/18) Patient History: FH: anemia FATHER, , Age:90 FH: diabetes mellitus MOTHER, , Age:91 BROTHER OR SISTER, Age:83 FH: rheumatoid arthritis FATHER, , Age:90 BROTHER OR SISTER (Sister), Age:90 Hx Smoking: No Smoking Status: Never Smoker Exposure to Second Hand Smoke?: No Caffeine Intake: Tea Caffeine/Cups Per Day: 2 Hx Alcohol Use: No Hx Substance Use Disorder: No Social Drug Use: Never Review of Systems All Systems Reviewed/Normal: Yes, Except as Noted Respiratory: Shortness of Breath, Cough, Wheezing Exam Vital Signs Vital Signs Date Time Temp Pulse Resp B/P (MAP) Pulse Ox O2 Delivery O2 Flow Rate FiO2 06/19/18 17:13 98.7 79 30 97/36 (56) 93 Room Air Neuro: No Gross deficits Eyes: PERRLA Cardiovascular: Regular Rate and Rhythm Respiratory: Other (Bilateral rhonchi.) GI: Other (Distended.) Extremities: No Edema Integumentary: No Cyanosis Assessment and Plan Problems: (1) Aspiration pneumonia Assessment & Plan: The patient was initially admitted to [facility] for a foot infection. She was transferred from the medical floor to [facility] for ongoing antibiotic therapy. She developed increased congestion and shortness of breath. Her x-ray suggested a left sided infiltrate with associated pleural effusion. She was transferred back to the medical floor and treated for possible aspiration pneumonia. She improved and was transferred back to [facility] on June 14. Later that day the patient had an episode of aspiration and apparently had scrambled eggs suctioned from her airway at that time. She was monitored and developed fever and increased O2 requirements. She was placed on Levaquin and ST reevaluated. There was no evidence of a swallowing problem and ST recommended the patient be upright for all oral intake. Today the patient was noted to be weaker and more short of breath. She was also hypotensive. Labs were done and she was noted to have an elevated lactate. Her WBC was also elevated at nearly 14,000 with a left shift. Her creatinine was elevated as well. The patient was transferred back to the medical floor for treatment of aspiration pneumonia. (2) Abdominal distention Assessment & Plan: The patient has a history of prosthetic mitral valve. Last echo was done in 2010. On recent CXRs, she was noted to have possible pulmonary edema. She was also noted to have increasing LE edema. She also developed in creased abdominal girth. CHF was considere but a BNP on 06/17/18 was WNL. An echocardiogram is pending. A CT abdomen is also ordered to evaluate for ascites. (3) Rash Status: Acute Assessment & Plan: The patient developed a diffuse macular erythematous rash in the groin/abd/low back on 06/16/18. It was initially mild and non-pruritic but persisted. Pharmacy reviewed inpt vs outpt meds and recommended stopping Mucinex, so that was done. Her Lasix was also discontinued. She did receive a one time dose of Vancomycin on 06/16/18, but this occurred AFTER the rash was noted. This will need to be followed on the medical floor. 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 Dr. Orantes has been following her as an outpatient. Purulent discharge was noted on initial evaluation and a wound culture has grown MRSA. A plain film was negative for osteomyelitis. Physical therapy is providing wound care. She was initially started on vancomycin and levofloxacin, but was transitioned to just vancomycin. She completed a total 14 days therapy on Jun.12. She then developed fever. There was concern for recurrent infection. MRI could not be done to to prosthetic MV. A 3 phase bone study was done. Osteomyelitis could not be ruled out. Surgery was consulted and recommended treating with Vanco for a complete 6 weeks as the patient is not a good surgical candidate. Vanco was restarted. (5) Weakness Status: Acute Assessment & Plan: She was having more falls at home prior to admission. She had lost about 5 pounds in the last 12 days prior to admission. Prealbumin was low at 16.7 on admission. OT/PT were following the patient. She was placed on SHANNAN to ensure adequate calorie intake and also adequate protein intake. A recheck of prealbumin was 12.3 on 06/16/18. (6) Atrial fibrillation, controlled Status: Chronic Assessment & Plan: She was on chronic treatment with digoxin and warfarin. The digoxin was held secondary to bradycardia (HR in the 30's while sleeping) and concerns that it might be contributing to her falls. Her rate is controlled off the digoxin and she is no longer having the bradycardia. Looking back at EMR outpatient visits, her usual dose of Coumadin had been 1.5mg daily x 6 days per week and 2mg once per week. She did come in supra-therapeutic. Her INR is low on 1.5mg a day. Change to 2mg and start Lovenox to bridge. (7) Mitral valve disorder Status: Acute Assessment & Plan: INR goal is 2.5-3.5. (8) Type 2 diabetes mellitus without complications Status: Chronic Assessment & Plan: Metformin was initially held secondary to ARF and normal BS. She was placed on diet as tolerated secondary to the weight loss. AC and HS glucoses were followed. BS were adequate off of metformin so it was discontinued. (9) Anemia Status: Chronic Assessment & Plan: Iron studies showed a low iron level (on Niferex bid). Ferritin was normal, but could be due to acute inflammation. Stool was positive for occult blood. She did receive 2 units of red cells on 06/08. She was continued on anticoagulation secondary to the prosthetic MV and the high stroke risk. Hgb stabilized. PPI was started. B12 and folate were rechecked and were WNL. She will need to be monitored while on the medical floor. (10) Rheumatoid arthritis Status: Chronic Assessment & Plan: She is chronically on methotrexate, which was held due to active infection. (11) Acquired hypothyroidism Status: Chronic Assessment & Plan: She was continued on levothyroxine. TSH was 0.88. Venous Thromboembolism Antithrombotics Is Pt On Any Antithrombotics?: Yes AURORA GASPAR DO Jun 19, 2018 17:31 <Electronically signed by AURORA GASPAR DO> D/ 173 173 30 ELADIO/PRADIP CC: The above acute care issues are resolving and/or stable. Patient requires custodial and/or skilled rehabilitation and is ready for admission to [facility]. Any change in condition is described below. AURORA GASPAR DO Jun 26, 2018 05:02
[2018-06-26] MEDS: ALBUTEROL/IPRATROPIUM 3 ML NEB NEB SCH ×3 (05:29→18:43)
[2018-06-26] MEDS: LEVOTHYROXINE SOD 0.088 MG TAB PO SCH (05:57)
[2018-06-26 06:16] LABS: INR 3.19
[2018-06-26 08:10] VITALS: BP 118/61
[2018-06-26] MEDS: CETIRIZINE HCL 10 MG TAB PO SCH (09:30)
[2018-06-26] MEDS: FOLIC ACID 1 MG TAB PO SCH (09:30)
--- NOTE | 2018-06-26 12:44 | PT ECF NOTE ---
Type of Note: Initial Note Primary Medical Diagnosis: Pneumonia Physical Therapy Evaluation Date: 06-25-18 SUBJECTIVE: Prior Hospitalization: 05/29/19 admitted to [facility] Medical unit for acute renal failure. Pt. has had 2 stays on [facility] medical unit (06-07-18 till 09-27) and (06-19-18 till 06-25-18), following being dx with aspiration pneumonia. Pt. is being admitted to [facility] from the [facility] medical unit for continued rehab. Prior Level of Function: Pt. was living alone prior to this admission. Prior Living Status: Pt. was residing in [place], [facility]. Community Services: Pt's daughter indicates that pt will be moving to [place] to reside either with her or to obtain further rehab there. Home Accessibility: 15 stairs to access daughters apartment. Equipment Owned: [facility] Medical Complications/Past Medical History: Please refer to chart for details; RA, DM, wound at L) foot, aspiration pneumonia Psychosocial Support: Supportive daughter in [place], [place] Pain Scale (0-10): No pain stated upon evaluation. OBJECTIVE: Strength: MMT reveals WNL, however, generalized weakness exhibited with early fatigue during ADL's and increased work of breathing. ROM: (please note any abnormalities) Some limitations due to RA, but hips and knees WFL overall. Sensation: (please note any abnormalities) some numbness in feet related to diabetic neuropathy. Other Neuro findings: n/a Bed Mobility: Min assist with head of bed raised to transition from sidelying to sitting at edge of bed. Assistive device: Bed rail; Head of bed elevated Transfers: SBA/CGA Assistive Device: Front wheeled walker Gait: SBA/CGA Pt tolerated ambulation x 150' during afternoon session following noon meal, prior to wound care eval. Assistive device: Front wheeled walker Stairs: Previously progressing well; not yet addressed with today's new evaluation due to fatigue. Assistive device: Timed Up and Go (>12 seconds indicated increased risk for falls): 40 seconds 10 meter walk test (0.6m/second cannot function independently): n/a Other Objective Measures: n/a ASSESSMENT: Pt has returned to [facility] for further rehab following admission to [facility] acute care for aspiration pneumonia. Pt's previous plan was to discharge home with daughter in [place]. Recently, however, it has been decided to transition to SNF in [place] for further rehab. Pt's family is only able to transport her on the weekends, and thus pt has returned to [facility] for continue with rehab in the interim. Pt will benefit from further strengthening for B) LE's to allow for improved tolerance of ADL's and return to indep with basic ADL's, transfers and mobility. PT will also continue with wound care to L) foot, plantar surface of 2nd MTP joint. Pt benefits from application of shoes if edema allows, to minimize stress on this ulcer site. Problem List/Current Limitations: Decreased activity sameer, Decreased strength, Generalized weakness Short Term Goals: 1. SBA bed mobility. 2. SBA sit to/from stand transfers from a variety of surfaces. 3. SBA gait x 150' with appropriate assistive device. 4. Ascend/descend 2 stairs CGA. 5. Improve TUG to less than/equal to 29 seconds as indicator of improved safety with functional mobility. Executive Services Administrator Goals: Transition to local SNF for further rehab closer to daughter's home Patient Goals: Return to least restrictive environment when able Rehabilitation Prognosis: Good Barriers for Discharge: Arthritic changes related to RA make self care and pericare challenging. Current level of fatigue impairs pt's ability to safely complete stairs necessary to access daughter's home. PLAN: The patient will benefit from skilled physical therapy services 5 times per week for 2 weeks including: Therapeutic Exercise Therapeutic Activities, Transfer Training, Gait Training, Stair Training, ADL's, Safety Training, Wound Care, Pt/Caregiver Training, Bed Mobility Thank you for this referral. If you have any questions, concerns, or comments about this report or plan, please contact me at . H. Caroline Presley, PT, MPT, OMS MTDD
--- NOTE | 2018-06-26 12:56 | NUR ---
Occupational Therapy Impression Pt. required Min A to perform supine to sit at EOB transfer, CGA to ambulate with use of FWW and Mod A to perform toileting activities. OT recommends pt. d/c with 24 hr. care. Continue with POC. Occupational Therapy Goals 1. Pt. to perform showering activities with Mod A. 2. Pt. to perform toileting activities with Min A. 3. Pt. to perform grooming activities with Min A. 4. Pt. to increase Mica Index of ADL score by 2 points. 5. Pt. to perform dressing activities with Mod A. Patient's Goal
[2018-06-26] MEDS: WARFARIN SOD 1 MG TAB PO SCH (13:10)
--- NOTE | 2018-06-26 14:34 | NUR ---
Physical Therapy Impression Pt performed standing ther ex, ambulated 150' with RW and CGA, and ascended/descended 4 stairs with B handrails with Min A. Pt required rest breaks throughout session. Pt will need to be able to negotiate a flight of stairs at daughter's home. Physical Therapy Goals 1. SBA bed mobility. 2. SBA transfers. 3. SBA gait x 150' with appropriate assistive device. 4. Ascend/descend 2 stairs CGA. 5. Improve TUG to less than/equal to 29 seconds as indicator of improved safety with functional mobility. Patient's Goals
[2018-06-26 15:45] VITALS: BP 107/60
[2018-06-26] MEDS: DAPTOMYCIN IV SCH (18:00)
[2018-06-26] MEDS: NS 0.9% IV SCH (18:00)
[2018-06-26] MEDS: TAMSULOSIN HCL 0.4 MG CAP PO SCH (20:15)
[2018-06-27] MEDS: ALBUTEROL/IPRATROPIUM 3 ML NEB NEB SCH ×3 (05:10→17:27)
[2018-06-27] MEDS: LEVOTHYROXINE SOD 0.088 MG TAB PO SCH (05:23)
[2018-06-27 05:52] LABS: INR 2.76
[2018-06-27 08:00] VITALS: BP 103/51
[2018-06-27] MEDS: CETIRIZINE HCL 10 MG TAB PO SCH (09:21)
[2018-06-27] MEDS: FOLIC ACID 1 MG TAB PO SCH (09:21)
--- NOTE | 2018-06-27 11:42 | NUR ---
Occupational Therapy Impression Pt highly motivated to engage in OT tx. Pt ambulated 4x50ft with RW. SpO2 >95% on room air throughout tx. Pt requiring v/c's for sequencing all sit<>stands and stand<>sits. Decreased safety awareness, carryover of skills. Dynamic standing balance [id number] reaching high/slow and outside base of support. Pt with good righting reactions and awareness to environment. Continue POC. Occupational Therapy Goals 1. Pt. to perform showering activities with Mod A. 2. Pt. to perform toileting activities with Min A. 3. Pt. to perform grooming activities with Min A. 4. Pt. to increase Mica Index of ADL score by 2 points. 5. Pt. to perform dressing activities with Mod A. Patient's Goal
[2018-06-27] MEDS: WARFARIN SOD 1 MG TAB PO SCH (12:30)
--- NOTE | 2018-06-27 14:57 | NUR ---
Physical Therapy Impression PT attempted PT treatment at 1348, pt politely declined reporting that she was "tired", PT told patient that she would return at 1430 to complete therapy session and pt was agreeable. PT returned at 1436, and pt was sleeping, when awoken, pt keithty refused second attempt. Physical Therapy Goals 1. SBA bed mobility. 2. SBA transfers. 3. SBA gait x 150' with appropriate assistive device. 4. Ascend/descend 2 stairs CGA. 5. Improve TUG to less than/equal to 29 seconds as indicator of improved safety with functional mobility. Patient's Goals
[2018-06-27 17:15] VITALS: BP 122/69
[2018-06-27] MEDS: NS 0.9% IV SCH (18:00)
[2018-06-27] MEDS: DAPTOMYCIN IV SCH (18:00)
[2018-06-27] MEDS: TAMSULOSIN HCL 0.4 MG CAP PO SCH (20:25)
[2018-06-28] MEDS: ALBUTEROL/IPRATROPIUM 3 ML NEB NEB SCH ×3 (05:37→17:13)
[2018-06-28] MEDS: LEVOTHYROXINE SOD 0.088 MG TAB PO SCH (06:03)
[2018-06-28 06:30] LABS: INR 2.63
[2018-06-28 07:55] VITALS: BP 109/48
[2018-06-28] MEDS: CETIRIZINE HCL 10 MG TAB PO SCH (10:04)
[2018-06-28] MEDS: FOLIC ACID 1 MG TAB PO SCH (10:04)
[2018-06-28] MEDS: WARFARIN SOD 1 MG TAB PO SCH (12:39)
--- NOTE | 2018-06-28 12:42 | NUR ---
Physical Therapy Impression Pt reports fatigue and being tired today. Pt only agreeable to supine there ex. Wound did not require debridement this dressing change. Wound cleaned with saline and dressed with Alginate and covered with 3x3 silicone bordered dressing. PT to continue to follow Sunday and Sunday. Physical Therapy Goals 1. SBA bed mobility. 2. SBA transfers. 3. SBA gait x 150' with appropriate assistive device. 4. Ascend/descend 2 stairs CGA. 5. Improve TUG to less than/equal to 29 seconds as indicator of improved safety with functional mobility. Patient's Goals
--- NOTE | 2018-06-28 12:49 | NUR ---
Occupational Therapy Impression Pt alert and agreeable to OT tx. Pt more fatigued this date, requiring increased assist for sit<>stands. CGA sit<>stand from high bed. Mod A sit<>stand chair with no arms. Min A sit<>stand chair with arms. Ambulation 2x50ft with RW. SBA hand hygiene sink front. Seated in DR for lunch at end of tx. Occupational Therapy Goals 1. Pt. to perform showering activities with Mod A. 2. Pt. to perform toileting activities with Min A. 3. Pt. to perform grooming activities with Min A. 4. Pt. to increase Mica Index of ADL score by 2 points. 5. Pt. to perform dressing activities with Mod A. Patient's Goal
[2018-06-28 17:25] VITALS: BP 109/63
[2018-06-28] MEDS: DAPTOMYCIN IV SCH (17:38)
[2018-06-28] MEDS: NS 0.9% IV SCH (17:38)
[2018-06-28] MEDS: TAMSULOSIN HCL 0.4 MG CAP PO SCH (20:45)
[2018-06-29] MEDS: ALBUTEROL/IPRATROPIUM 3 ML NEB NEB SCH ×3 (05:27→17:06)
[2018-06-29] MEDS: LEVOTHYROXINE SOD 0.088 MG TAB PO SCH (06:03)
[2018-06-29 06:18] LABS: INR 2.62
[2018-06-29 08:02] VITALS: BP 95/57
[2018-06-29] MEDS: FOLIC ACID 1 MG TAB PO SCH (09:31)
[2018-06-29] MEDS: CETIRIZINE HCL 10 MG TAB PO SCH (09:31)
[2018-06-29] MEDS: WARFARIN SOD 1 MG TAB PO SCH (13:30)
[2018-06-29 15:00] VITALS: BP 91/45
[2018-06-29] MEDS: NS 0.9% IV SCH (18:23)
[2018-06-29] MEDS: DAPTOMYCIN IV SCH (18:23)
[2018-06-29] MEDS: TAMSULOSIN HCL 0.4 MG CAP PO SCH (21:10)
[2018-06-30] MEDS: ACETAMINOPHEN 325 MG TAB PO PRN ×2 (02:35→20:03)
[2018-06-30] MEDS: ALBUTEROL/IPRATROPIUM 3 ML NEB NEB SCH ×3 (05:42→17:55)
[2018-06-30] MEDS: LEVOTHYROXINE SOD 0.088 MG TAB PO SCH (05:59)
[2018-06-30 06:44] LABS: INR 2.59
[2018-06-30 08:16] VITALS: BP 100/47
[2018-06-30] MEDS: CETIRIZINE HCL 10 MG TAB PO SCH (09:32)
[2018-06-30] MEDS: FOLIC ACID 1 MG TAB PO SCH (09:32)
[2018-06-30] MEDS: WARFARIN SOD 1 MG TAB PO SCH (13:01)
[2018-06-30 15:54] VITALS: BP 115/53
[2018-06-30] MEDS: DAPTOMYCIN IV SCH (18:24)
[2018-06-30] MEDS: NS 0.9% IV SCH (18:24)
[2018-06-30] MEDS: TAMSULOSIN HCL 0.4 MG CAP PO SCH (20:03)
[2018-07-01] MEDS: ALBUTEROL/IPRATROPIUM 3 ML NEB NEB SCH ×3 (05:18→17:01)
[2018-07-01] MEDS: LEVOTHYROXINE SOD 0.088 MG TAB PO SCH (05:37)
[2018-07-01 05:44] LABS: INR 2.46
[2018-07-01 07:50] VITALS: BP 111/66
[2018-07-01] MEDS: FOLIC ACID 1 MG TAB PO SCH (08:47)
[2018-07-01] MEDS: CETIRIZINE HCL 10 MG TAB PO SCH (08:47)
--- NOTE | 2018-07-01 12:49 | NUR ---
Occupational Therapy Impression SBA ambulation 4x75ft with RW. V/c's for sequencing. UB ther ex. Trailed various items to improve (I) and energy conservation for feeding. Pt reports preference for plate guard with regular utensils. Will also try cup with 2 handles. Min A sit to supine. Continue POC. Occupational Therapy Goals 1. Pt. to perform showering activities with Mod A. 2. Pt. to perform toileting activities with Min A. 3. Pt. to perform grooming activities with Min A. 4. Pt. to increase Mica Index of ADL score by 2 points. 5. Pt. to perform dressing activities with Mod A. Patient's Goal
--- NOTE | 2018-07-01 12:51 | NUR ---
Physical Therapy Impression Attempted to see pt for thearpy at 1130, pt asleep, once awake, politely refused. Attempted to get pt up for lunch without success. Will attempt mobility again tomorrow. Physical Therapy Goals 1. SBA bed mobility. 2. SBA transfers. 3. SBA gait x 150' with appropriate assistive device. 4. Ascend/descend 2 stairs CGA. 5. Improve TUG to less than/equal to 29 seconds as indicator of improved safety with functional mobility. Patient's Goals
[2018-07-01 12:55] VITALS: BP 119/71
[2018-07-01] MEDS ORDERED: WARFARIN SOD 2 MG TAB PO SCH (13:00)
--- NOTE | 2018-07-01 13:00 | NUR ---
Malaise Patient has refused lunch and activities due to not feeling well.
[2018-07-01 13:47] LABS: PLATELET COUNT, AUTOMATED 141 K/uL (150-450)
--- NOTE | 2018-07-01 15:39 | RADIOLOGY IMAGING REPORT ---
FACILITY: [facility] PATIENT NAME: Kinsey Hwang : 1935 MR: [id number] V: [id number] EXAM DATE: ORDERING PHYSICIAN: AURORA GASPAR TECHNOLOGIST: Location: [facility] Patient: Kinsey Hwang : 1935 Visit/Account:[id number] Date of Sevice: 07/01/2018 Exam type: CHEST SINGLE AP History: Oral temp 100.5 degrees F, cough Comparison: June 20, 2018. Findings: Moderate cardiomegaly, prosthetic cardiac valve and sternotomy sutures again noted. There is a left- sided PICC line distal tip projects at the caval atrial junction. Mildly prominent interstitial do ings are seen throughout the lungs. These appear subtly increased when compared the prior study. Th is could represent a superimposed acute interstitial process. No evidence of pleural effusions. IMPRESSION: 1. Moderate cardiac megaly unchanged Subtle increase in the interstitial markings superimposed on the previous chronic interstitial change s. This could represent an acute superimposed interstitial process such as interstitial pneumonia or interstitial pulmonary edema Report Dictated By: Patt Kevin MD at 07/01/2018 3:32 PM Report E-Signed By: Patt Kevin MD at 07/01/2018 3:34 PM WSN:[email or web address]
--- NOTE | 2018-07-01 16:11 | Medical Nutrition Therapy ---
Nutrition Anthropometrics Height (Inches): 61.00 Height (Calculated Centimeters: 154.154258 Weight (Pounds): 132 Weight (Calculated Kilograms): 59.874 Jackson Nutrition Score: Probably Inadequate Jackson Nutrition Risk Score: 15 Dietary Referral Nutrition Risk Factors: Diff. Swallowing, Non-Healing Wound, Special Diet Nutrition Risk Comment: States weighed 118# before this hospitalization Nutritional Diagnosis Nutritional Risk Acuity 2: Swallowing Problem, Abcess/Non-Healing Wound Past Medical History: T2DM, RA, CHF, Neuropathy Nutritional Acuity: 2-Moderate Nutrition Diagnosis: Swallowing Difficulties Nutrition Etiology: Physiological Causes Nutrition Problem/Etiology/Sym: AEB dx aspiration pneumonia Energy Requirement: 1675 (M- St J X 1.5 SF based on est dry wt 105#) Protein Requirement: 71 (1.5 g/kg based on est dry wt 105#) Fluid Requirement: 1200 (25ml/kg based on est dry wt 105#) Nutrition Intervention: Cont diet as ordered, Encourage intake, HS snack, Between meal supplement Drug: Warfarin Food Likes: prefers a cramb cartcher Do Not Serve Any of the Follow: Broccoli, Brussel Sprouts, Spinach, [place] Lettuce, Cranberry Juice Additional Diet Restrictions: OFFER NUTR SUPPLMENTS Nutrition Monitoring & Eval Nutrition Goals: Eat 50-100% Meal Nutrition Follow-Up: Poor Intake RD Patient Assessment Time: [address] Assessment Type: RD Re-Assessment Patient Nutrition Acuity: 2-Moderate Follow Up Date: Jul 09, 2018 Nutritional Comment: 06/25 Pt admitted s/p aspiration pneumonia. Pt on dysphagia 2 diet with thin liquids per SPL eval. Pt has increased nutr needs r/t open wound to toe. Wt is up 26% from est dry wt of 105# on 05/30/18. Pt has 2+ edema LE and 4+ edema to feet. Anticipate wt loss when edema resolved. Nutr significant low labs: Alb 2.2, prealb 12.3, Fe 19. CRP elevated at 8.3. A1c 5.9. BG elevated up to 153 past 3 days. Pt was eating 0-25% of meals on med floor. Will offfer nutr supplment to increase kcal and protein intake. BK 07/01 pt cont on Dyspagia 2 diet. Intake average 62% of small portions with occasional nutr supplment. No new wt. pt cont 3+ pitting edema BLE. Anticipate wt loss when edema resolved with est dry wt 105#. Alb 3. Prealbumin is pending. Will cont to monitor and encourage intake. PARTH MCFARLAND Jul 01, 2018 16:11
[2018-07-01 17:05] VITALS: BP 118/75
[2018-07-01] MEDS: DAPTOMYCIN IV SCH (17:27)
[2018-07-01] MEDS: NS 0.9% IV SCH (17:27)
[2018-07-01] MEDS: ACETAMINOPHEN 325 MG TAB PO PRN (20:34)
[2018-07-01] MEDS: TAMSULOSIN HCL 0.4 MG CAP PO SCH (20:34)
[2018-07-02] MEDS: LEVOTHYROXINE SOD 0.088 MG TAB PO SCH (05:32)
[2018-07-02] MEDS: ALBUTEROL/IPRATROPIUM 3 ML NEB NEB SCH ×3 (05:50→17:04)
[2018-07-02 06:48] LABS: INR 2.13
--- NOTE | 2018-07-02 08:24 | NUR ---
Wound Care: Physical Therapy Impression Periwound skin demonstrates moderate amount of callous build up. PT completed conservative, selective debridement of non-viable tissue and slough with tweezers to the depth of the dermis in order to remove callous down to the level of healthy tissue. Wound base demonstrates pale pink tissue, with depth of 0.5 cm D at wound borders. PT cleansed wound with sterile saline and then packed wound with collagen with silver, with wound covered with a silicone bordered dressing. Physical Therapy Goals 1. SBA bed mobility. 2. SBA transfers. 3. SBA gait x 150' with appropriate assistive device. 4. Ascend/descend 2 stairs CGA. 5. Improve TUG to less than/equal to 29 seconds as indicator of improved safety with functional mobility. Patient's Goals
--- NOTE | 2018-07-02 08:36 | NUR ---
Physical Therapy Impression Pt reports that she feels "better" today. Pt completed STS transfers with SBA/CGA from toilet and seated position at EOB. Pt became fatigued while ambulating in hallway and elected to sit in a low chair without arms. The patient took a seated rest break but was unable to rise to stand without min-modA. PT educated the patient on the importance of seat selection in order to improve safety with functional mobility. Pt demonstrating fair standing dynamic balance while completing hygiene tasks in bathroom. She will benefit from further skill intervention, continue with POC. 1. SBA bed mobility. 2. SBA transfers. 3. SBA gait x 150' with appropriate assistive device. 4. Ascend/descend 2 stairs CGA. 5. Improve TUG to less than/equal to 29 seconds as indicator of improved safety with functional mobility. Patient's Goals
[2018-07-02] MEDS: CETIRIZINE HCL 10 MG TAB PO SCH (09:07)
[2018-07-02] MEDS: FOLIC ACID 1 MG TAB PO SCH (09:07)
[2018-07-02 09:20] VITALS: BP 105/67
--- NOTE | 2018-07-02 09:28 | NUR ---
Conversation with resident regarding code status. Resident states she wants compressions and a breathing machine should she need it. "I just want to get home with my daughter". Discussed with AUNDREA Moreau who has spoken to resident's daughter. She believes that our doctors here know her mom and she should stay here until she is able to actually come home. Resident continues to choke and cough during intake of food/fluids.
--- NOTE | 2018-07-02 12:29 | NUR ---
5-day MDS completed with pt. C: 09, D: 04, E: no concerns, Q: pt plans to DC to live with her daughter in [place], [place], no referrals made yet. SW spoke with pt's dtr last week regarding referring pt to SNF closer to dtr in [place], but dtr states desire for pt to remain at [facility], where physicians are familiar with her medical status and plan of care. Care conference this afternoon, will follow-up regarding DC plans.
[2018-07-02] MEDS ORDERED: WARFARIN SOD 1 MG TAB PO SCH (13:00)
[2018-07-02] MEDS ORDERED: LEVOFLOXACIN 500 MG TAB PO SCH (13:00)
[2018-07-02] MEDS: LEVOFLOXACIN 750 MG TAB PO SCH (13:19)
[2018-07-02] MEDS: WARFARIN SOD 1 MG TAB PO SCH (13:19)
--- NOTE | 2018-07-02 13:59 | Miscellaneous Provider Note ---
Miscellaneous Provider Note Note Patient was noted to have fever, cough, and elevated WBC 07/01 likely from aspiration. CXR shows interstitial pneumonia. She will get Levaquin (renally dosed at q48h) added today for aspiration pneumonia. LARRY JAVIER SALES REPRESENTATIVE [employer] Jul 02, 2018 13:59
[2018-07-02] MEDS: ACETAMINOPHEN 325 MG TAB PO PRN (14:13)
--- NOTE | 2018-07-02 14:49 | NUR ---
Occupational Therapy Impression Mod A supine to sit. CGA ambulation with RW. Constant v/c's for sequencing sit<>stands. Pt reporting pain in bilateral hands secondary to RA. Paraffin bath provided to prep for ADLs. Pt reporting relief and improved ROM. Skin integrity intact. Total donning shoes. Min A UB dressing. Min A toileting. Pt dyspneic with activity, SpO2 WNL on room air. Occupational Therapy Goals 1. Pt. to perform showering activities with Mod A. 2. Pt. to perform toileting activities with Min A. 3. Pt. to perform grooming activities with Min A. 4. Pt. to increase Mica Index of ADL score by 2 points. 5. Pt. to perform dressing activities with Mod A. Patient's Goal
[2018-07-02 15:30] VITALS: BP 95/60
[2018-07-02] MEDS: DAPTOMYCIN IV SCH (18:13)
[2018-07-02] MEDS: NS 0.9% IV SCH (18:13)
[2018-07-02] MEDS: TAMSULOSIN HCL 0.4 MG CAP PO SCH (20:30)
[2018-07-03] MEDS: ALBUTEROL/IPRATROPIUM 3 ML NEB NEB SCH ×3 (05:51→18:10)
[2018-07-03] MEDS: LEVOTHYROXINE SOD 0.088 MG TAB PO SCH (06:24)
[2018-07-03 06:57] LABS: INR 2.72
[2018-07-03 07:45] VITALS: BP 102/44
[2018-07-03] MEDS: CETIRIZINE HCL 10 MG TAB PO SCH (09:02)
[2018-07-03] MEDS: FOLIC ACID 1 MG TAB PO SCH (09:02)
--- NOTE | 2018-07-03 09:52 | SLP BEDSIDE SWALLOW EVALUATION ---
SPEECH THERAPY ASSESSMENT Ordering Physician: REMIGIO Khalil Clinician: Rachel Crawford MS, [facility] AUDITOR Type of Assessment: Bedside Dysphagia Evaluation Patient: Kinsey Hwang : 35 Evaluation Date: 07/03/18 BACKGROUND The patient is an 82 year old female with lengthy course of hospitalization complicated by suspected, recurrent aspiration with respiratory infection. See medical record for detailed information. The pt was seen for a modified barium swallow study on 06/21/18 prior to transferring to the extended care facility (ECF). MBSS did not reveal any aspiration or abnormal penetration. Deficits were primarily oral with restricted mandibular movement and decreased rotary pattern for mastication resulting in prolonged, laborious, and incomplete bolus formation. Pt required two swallows (piecemeal deglutition) to clear small bites of advanced and regular solids from oral cavity. MBSS was also suspicious for esophageal dysphagia. At the UES, the pt exhibited a rather large posterior prominence/bulging consistent with a cricopharyngeal bar. 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 The pt now presents in the ECF with suspicion for recurrent aspiration and infiltrate on CXR. An ST consult was requested. Primary Medical Diagnosis: pneumonia Pain Scale (0-10): none reported; appears comfortable. LOC / Participation: Alert and cooperative. Follows instructions: Yes. Orientation: A&O x4 Functional Communication Deficits impact swallow function/safety, or response to therapy: No; however, the pt may benefit from supervision/reminders during participation in meals as a result of maladaptive self-feeding patterns DYSPHAGIA Sialorrhea: No Xerostomia: No. Hygiene: WFL Supplemental Oxygen Use: No. Respiratory Rate: Variable. Increased work of breathing during mastication of solids. COPD Dx: Yes. Pain with Swallow: Denies. Pt seen in the dining area for clinical swallow assessment with morning meal. PO trials included pureed solids and mechanically altered solids, in addition to thin liquids via cup. Oral phase continues to be characterized by prolonged mastication and incomplete bolus formation with mild post-swallow oral scatter. Pharyngeally, pt exhibited no coughing, vocal changes, or throat clearing across PO trials. Objective swallow study revealed mild pharyngeal deficits most notably characterized by mild delay in pharyngeal swallow onset. Of note, pt continues with some impulsive self-feeding behaviors w/ rapid consumption of solids despite visibly increased work of breathing during mastication phase. Coordination between respiration and deglutition is reduced, likely due to repeated, brief periods of apnea required for execution of safe pharyngeal swallow. Pt responded to cues for decreased rate of intake, reduced bolus sizes, and encouragement to take breaks for respiration. Provided written, visual aide summarizing ST recommendations for use at meal times. Discussed results with RN, including recommendation to provide constant supervision during PO intake to support consistent adherence to compensatory swallow strategies. Aspiration was not witnessed during this pts MBSS, and the pt did not demonstrate any evidence of aspiration during todays evaluation. However, maladaptive, rapid self-feeding patterns paired with shortness of breath, evidence of esophageal dysphagia, and posterior prominence near the UES may result in inhalation of food/liquids, or reflux aspiration. Aspiration Risk: Mildly elevated. Negative prognostic indicators include hx of choking, maladaptive self-feeding patterns, compromised respiratory status, and variable O2 needs. Known hx of esophageal dysphagia may further elevate risk for reflux aspiration and difficulty with passage through PES. Speech Therapy Need Brief course of ST is recommended to continue analysis of the pts swallow status, evolve diet recommendations, provide instruction in compensatory strategies, and provide education in aspiration precautions. ST will also continue to provide patient and staff education re: aspiration precautions and safe swallow strategies to minimize risk for further respiratory compromise. RECOMMENDATIONS 1. Diet: mechanically altered diet, thin liquids. 2. Medications: Whole, ok with thin liquids, one at a time. 3. Compensatory Techniques: regular oral hygiene, upright positioning during PO intake, cues to consume small bites/sips, one bite/sip at a time, take rest breaks for respiration. 4. Supervision with meals/snacks: constant supervision for swallow safety to monitor impulsive behaviors, promote adherence to compensatory swallow strategies, and encourage rest breaks for respiration. 5. Referral: GI consult POC 1. Patient will execute compensatory swallow strategies and adhere to safe swallow precautions with min verbal/visual cues during participation in mealtime activities. 2. The patient will safely and efficiently tolerate an advanced diet and thin liquids with independent implementation of safe swallow strategies and no s/s of aspiration. Prognosis: good, motivated to return to [place] Thank you for this referral. Rachel Crawford M.S., [facility] AUDITOR Speech Therapist [*] [place]
--- NOTE | 2018-07-03 09:53 | NUR ---
ST EVALUATION SUMMARY Clinical swallow evaluation complete. See full report for detailed info. Aspiration was not witnessed during this pts MBSS on 06/21/18, and the pt did not demonstrate any evidence of aspiration during todays evaluation. However, maladaptive, rapid self-feeding patterns paired with shortness of breath, evidence of esophageal dysphagia, and posterior prominence near the UES may result in inhalation of food/liquids, or reflux aspiration. Aspiration Risk: Mildly elevated. Negative prognostic indicators include hx of choking, oral dysphagia, maladaptive self-feeding patterns, compromised respiratory status, and variable O2 needs. Known hx of esophageal dysphagia may further elevate risk for reflux aspiration and difficulty with passage through PES. Speech Therapy Need Brief course of ST is recommended to continue analysis of the pts swallow status, evolve diet recommendations, provide instruction in compensatory strategies, and provide education in aspiration precautions. ST will also continue to provide patient and staff education re: aspiration precautions and safe swallow strategies to minimize risk for further respiratory compromise. RECOMMENDATIONS 1. Diet: mechanically altered diet, thin liquids. 2. Medications: Whole, ok with thin liquids, one at a time. 3. Compensatory Techniques: regular oral hygiene, upright positioning during PO intake, cues to consume small bites/sips, one bite/sip at a time, take rest breaks for respiration. 4. Supervision with meals/snacks: constant supervision for swallow safety to monitor impulsive behaviors, promote adherence to compensatory swallow strategies, and encourage rest breaks for respiration. 5. Referral: GI consult POC 1. Patient will execute compensatory swallow strategies and adhere to safe swallow precautions with min verbal/visual cues during participation in mealtime activities. 2. The patient will safely and efficiently tolerate an advanced diet and thin liquids with independent implementation of safe swallow strategies and no s/s of aspiration. Addendum: 07/03/18 at 1613 by ANGELIC YU [facility] Pt seen later in day for cognitive linguistic assessment. Widespread, moderate to severe deficits observed. See report for detailed information. 01/01 supervision is recommended in discharge environment. ST will cont to follow to address impairments in attention, receptive language, short-term memory, and orientation in addition to oropharyngeal dysphagia. Goals 1. The patient will sustain attention to functional, structured cognitive linguistic tasks for 5 min intervals with min cues for redirection to support participation in daily routine. 2. The patient will execute 2-step instructions for participation in ADL tasks with mod cues for use of information processing strategies. 3. The patient will refer to external compensatory systems with min cues to support short-term recall of daily activities, functional facts, and orientation info with improved participation in daily routine and effective communication.
--- NOTE | 2018-07-03 12:27 | NUR ---
Physical Therapy Impression Pt requires Mod A for B LEs into bed. Pt requires CGA/SBA for sit<>stand transfers, CGA/SBA to ambulate 200' with RW with 2 seated rest breaks. Pt required assistance with LB dressing and hygiene following using the bathroom. Physical Therapy Goals 1. SBA bed mobility. 2. SBA transfers. 3. SBA gait x 150' with appropriate assistive device. 4. Ascend/descend 2 stairs CGA. 5. Improve TUG to less than/equal to 29 seconds as indicator of improved safety with functional mobility. Patient's Goals
[2018-07-03] MEDS: WARFARIN SOD 2 MG TAB PO SCH (12:37)
--- NOTE | 2018-07-03 14:15 | NUR ---
Occupational Therapy Impression Pt alert and agreeable to OT tx. Trialed multiple methods to improve LB dressing (AE, low chair, step stool). Pt with increased abdominal pain and dyspnea with LB dressing. Continues to require Max A for LB dressing. CGA sit<>stand from high bed. Mod A sit<>stand chair with no arms. Min A sit<>stand chair with arms. Ambulation 2x50ft with RW. SBA hand hygiene sink front. Seated in DR for lunch at end of tx. Occupational Therapy Goals 1. Pt. to perform showering activities with Mod A. 2. Pt. to perform toileting activities with Min A. 3. Pt. to perform grooming activities with Min A. 4. Pt. to increase Mica Index of ADL score by 2 points. 5. Pt. to perform dressing activities with Mod A. Patient's Goal
[2018-07-03] MEDS ORDERED: guaiFENesin SYRP 100MG/5ML UDC PO PRN (15:45)
--- NOTE | 2018-07-03 16:10 | SLP EVALUATION SUMMARY REPORT ---
SPEECH THERAPY ASSESSMENT Ordering Physician: Angela Thomson MD Clinician: Rachel Crawford MS, [employer]-PUBLICATIONS WRITER Type of Assessment: Cognitive linguistic assessment Patient: Kinsey Hwang : 35 Evaluation Date: 07/03/18 BACKGROUND The patient is an 82-year-old female with lengthy course of hospitalization complicated by suspected, recurrent aspiration with respiratory infection. See medical record for detailed information. The pt was seen for a clinical swallow assessment this AM in the Extended Care Facility ([facility]F) due to concern for aspiration episode with worsening pneumonia. See report for details. Following completion of the clinical swallow assessment, an additional ST consult was requested to analyze cognitive linguistic status. The pts RN and OT are noting deficits in sequencing to perform routine activities, and difficulty with carryover of new information between encounters. LANGUAGE/COGNITION The pt was seen at the bedside for cognitive linguistic evaluation using the Finn Cognitive Assessment (MoCA), version 7.3 paired with informal assessment procedures. The pt achieved a 9/25, demonstrating widespread, moderate to severe cognitive linguistic deficits. 5 points were excluded for visuospatial and executive function portions. These tasks were omitted due to poor fine motor control for writing. Deficits were noted during tasks requiring task initiation, sustained attention, attention to detail, environmental orientation, immediate recall, delayed recall, language fluency, mental abstraction, problem solving, item naming. Relative areas of strength were seen in working memory, and temporal orientation. The pt struggled to execute single- level instructions, and required repetition of task instructions with multiple, concrete examples to support comprehension of information. Delayed speed of processing was also observed. The pt exhibited poor insight re: areas of impairment and did not endorse any errors or recent changes in cognition. Although formal executive function tasks were omitted from the MOCA due to fine motor deficits, the pt struggled to generate appropriate responses to verbal executive functioning scenarios with focus placed on planning, reasoning, and thought organization. It is recommended the pt receive daily, 24/7 supervision at discharge, and would benefit from [facility] services to support transition to discharge environment. RECOMMENDATIONS 1. ST 3x/wk 2. 24/7 supervision at discharge PROGNOSIS: Good. Pt w/ strong family support, relatively high PLOF. PLAN OF CARE Short Term Goals 1. The patient will sustain attention to functional, structured cognitive linguistic tasks for 5 min intervals with min cues for redirection to support participation in daily routine. 2. The patient will execute 2-step instructions for participation in ADL tasks with mod cues for use of information processing strategies. 3. The patient will refer to external compensatory systems with min cues to support short-term recall of daily activities, functional facts, and orientation info with improved participation in daily routine and effective communication. Long-Term Goals 1. The patient will demonstrate functional cognitive communication status for safety and maximized independence upon anticipated d/c to home environment w/ appropriate access to home and community resources. Thank you for this referral. Please call [phone] Rachel Crawford M.S., CCC-PUBLICATIONS WRITER [*] [place]
--- NOTE | 2018-07-03 16:13 | Hospitalist Progress Note ---
Subjective Progress Notes Subjective She has complaints of cough. Her fever has gotten better since starting Levaquin. She denies any other symptoms. Patient Complains of: Cardiovascular: No: Chest Pain Respiratory: Cough; No: Shortness of Breath Physical Exam Vital Signs Date Time Temp Pulse Resp B/P (MAP) Pulse Ox O2 Delivery O2 Flow Rate FiO2 07/03/18 11:22 85 20 07/03/18 11:15 92 Room Air 07/03/18 07:45 98.6 102/44 (63) Intake and Output 07/02/18 23:59 Intake Total 1250 ml Balance 1250 ml Intake Oral 1157 ml IV Total 93 ml # Voids 3 # Bowel Movements 1 General Appearance: Alert, Awake, No Acute Distress, Afebrile Neuro: No Gross deficits Cardiovascular: Regular Rate and Rhythm Respiratory: No Respiratory Distress, Other (expiratory wheezes present, crackles noted to bases) GI: Soft and Non-Tender, Other (abdominal distention noted) Extremities: Edema (2+pitting edema bilateral lower extremities) Psych: Alert & Oriented X3, Appropriate Mood & Affect Result Diagram: 07/01/18 1340 07/01/18 1340 Assessment and Plan Problems: (1) Aspiration pneumonia Status: Acute Assessment & Plan: She was noted to have cough, fever, and elevated WBC. Her chest x-ray noted interstitial pneumonia. She was started on Levaquin 750mg q48 hours (Renal Dosed) on 07/02 for aspiration pneumonia. 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 Dr. Orantes has been following her as an outpatient. Purulent discharge was noted on initial evaluation and a wound culture has grown MRSA. A plain film was negative for osteomyelitis. Physical therapy is providing wound care. She completed a total 14 days therapy of Vancomycin on Jun.12. She then developed fever. There was concern for recurrent infection. MRI could not be done to to prosthetic MV. A 3 phase bone study was done. Osteomyelitis could not be ruled out. Surgery was consulted and recommended treating with Vancomycin for a complete 6 weeks as the patient is not a good surgical candidate. Vancomycin was restarted and then st opped due to concern that it may have contributed to her rash. She is now on daptomycin. (3) Abdominal distention Assessment & Plan: She has developed increased abdominal girth. CHF was considered, but a BNP on 06/17/[address] abdomen does not show significant ascites. Will follow. (4) Weakness Status: Acute Assessment & Plan: She was having more falls at home prior to admission. She had lost about 5 pounds in the last 12 days prior to admission. Prealbumin was low at 16.7 on admission and decreased to 12.3 on 06/16. OT/PT were following the patient. She was placed on SHANNAN to ensure adequate calorie intake and also adequate protein intake. Calorie count ordered. (5) Atrial fibrillation, controlled Status: Chronic Assessment & Plan: She was on chronic treatment with digoxin and warfarin. The digoxin was held secondary to bradycardia (HR in the 30's while sleeping) and concerns that it might be contributing to her falls. Her rate is controlled off the digoxin and she is no longer having the bradycardia. Looking back at EMR outpatient visits, her usual dose of Coumadin had been 1.5mg daily x 6 days per week and 2mg once per week. She did come in supra-therapeutic. Her INR was low on 1.5mg a day. She was placed on Lovenox while she was sub-therapeutic, but it will be stopped as she developed an abdominal wall hematoma. Watch INR closely. (6) Mitral valve disorder Status: Acute Assessment & Plan: INR goal is 2.5-3.5. Watch INR closely. (7) Type 2 diabetes mellitus without complications Status: Chronic Assessment & Plan: Metformin was initially held secondary to ARF and normal BS. She was placed on diet as tolerated secondary to the weight loss. AC and HS glucoses were followed. BS were adequate off of metformin so it was discontinued. (8) Anemia Status: Chronic Assessment & Plan: Iron studies showed a low iron level (on Niferex bid). Ferritin was normal, but could be due to acute inflammation. Stool was positive for occult blood. She did receive 2 units of red cells on 06/08. She was continued on anticoagulation secondary to the prosthetic MV and the high stroke risk. Hgb stabilized. PPI was started. B12 and folate were rechecked and were WNL. (9) Rheumatoid arthritis Status: Chronic Assessment & Plan: She is chronically on methotrexate. (10) Acquired hypothyroidism Status: Chronic Assessment & Plan: She was continued on levothyroxine. TSH was 0.88. LARRY JAVIER FOLD SKIVER Jul 03, 2018 16:13
--- NOTE | 2018-07-03 16:15 | NUR ---
Long conversation with daughter as directed by Rachael Thomson MD. Resident continues to have episodes of lethargy, fatigue, pneumonia requiring IV antibiotics. Therapy and nursing are recommending she have 24/7 care to monitor her while she is eating, to ensure she is getting out of bed, supervision for mobility, etc. Sherley adamantly states that her mom has to be completely independent before she can come to live with her because there is no one at home all of the time nor do they have the means to provide someone to be with Kinsey. Sherley is going to request that her brother call and then they will talk about senior living care placement. She does believe that this placement will need to be in [place] versus [place] where her brother lives. She is requesting input into placement after she and her brother have a chance to discuss the options. Empathy to the situation given.
[2018-07-03 17:15] VITALS: BP 97/58
[2018-07-03] MEDS: DAPTOMYCIN IV SCH (17:29)
[2018-07-03] MEDS: NS 0.9% IV SCH (17:29)
[2018-07-03] MEDS: ACETAMINOPHEN 325 MG TAB PO PRN (17:30)
--- NOTE | 2018-07-03 19:11 | Antimicrobial Stewardship ---
Antimicrobial Stewardship Empiricly appropriate: Yes Comment On Levaquin 750 mg po q48h for possible aspiration pneumonia. 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 Renal/Hepatic dosing: Yes (Crcl 37 ml/min so dosing Levaquin q48h) Reviewed for Drug Interaction: Yes Monitored for Toxicities: Yes Clinically stable/improving: No (Still with fever.) IV to PO Opportunity: Yes Determine cumulative duration: 5-10 days for Levaquin and total of 6 weeks for Daptomycin DONNA SHEN Jul 03, 2018 19:11
[2018-07-03] MEDS: TAMSULOSIN HCL 0.4 MG CAP PO SCH (20:42)
[2018-07-04] MEDS: ALBUTEROL/IPRATROPIUM 3 ML NEB NEB SCH ×3 (05:52→17:46)
[2018-07-04] MEDS: LEVOTHYROXINE SOD 0.088 MG TAB PO SCH (06:43)
[2018-07-04 06:58] LABS: PLATELET COUNT, AUTOMATED 135 K/uL (150-450)
[2018-07-04 07:17] LABS: INR 2.66
[2018-07-04 08:15] VITALS: BP 93/53
[2018-07-04 08:20] VITALS: BP 87/55
[2018-07-04] MEDS: CETIRIZINE HCL 10 MG TAB PO SCH (08:42)
[2018-07-04] MEDS: FOLIC ACID 1 MG TAB PO SCH (08:42)
--- NOTE | 2018-07-04 09:27 | NUR ---
Physical Therapy Impression Pt making progress towards functional goals. Pt completed transfers with SBA and use of RW. Pt tolerated ambulation 2x120' with use of RW, reporting fatigue and requesting a seated rest break. Pt with increased difficulty ambulating on carpet. PT instructed patient in 2 x 5xSTS both with and without hands, pt with fair tolerance, requiring LEs resting on chairs for balance. Pt completed 5x mini squats with SBA. Physical Therapy Goals 1. SBA bed mobility. 2. SBA transfers. 3. SBA gait x 150' with appropriate assistive device. 4. Ascend/descend 2 stairs CGA. 5. Improve TUG to less than/equal to 29 seconds as indicator of improved safety with functional mobility. Patient's Goals
[2018-07-04 10:10] VITALS: BP 115/64
[2018-07-04] MEDS: WARFARIN SOD 1 MG TAB PO SCH (12:58)
[2018-07-04] MEDS: LEVOFLOXACIN 750 MG TAB PO SCH (13:04)
--- NOTE | 2018-07-04 14:01 | NUR ---
Occupational Therapy Impression CGA ambulation x50ft with RW. Min A sit<>stand transfers with v/c's x4. Min A toileting. UB ther ex to improve tolerance for ADLs. Mod A supine to sit. Continues to be dyspenic with activity. Continue POC. Occupational Therapy Goals 1. Pt. to perform showering activities with Mod A. 2. Pt. to perform toileting activities with Min A. 3. Pt. to perform grooming activities with Min A. 4. Pt. to increase Mica Index of ADL score by 2 points. 5. Pt. to perform dressing activities with Mod A. Patient's Goal
--- NOTE | 2018-07-04 15:11 | NUR ---
Spoke with son Chaitanya regarding recommendation for 01/01 supervision and assistance. He stated he would talk to his sister and they would decide what is best. Kinsey informed of recommendation, she states she has had a good day today. Encouraged ongoing rehabilitation in hopes of gaining enough strength to not need the supervision.
[2018-07-04 16:00] VITALS: BP 92/63
[2018-07-04] MEDS: NS 0.9% IV SCH (17:17)
[2018-07-04] MEDS: DAPTOMYCIN IV SCH (17:17)
[2018-07-04] MEDS: TAMSULOSIN HCL 0.4 MG CAP PO SCH (20:15)
[2018-07-05] MEDS: ALBUTEROL/IPRATROPIUM 3 ML NEB NEB SCH ×3 (05:52→18:16)
[2018-07-05] MEDS: LEVOTHYROXINE SOD 0.088 MG TAB PO SCH (06:28)
[2018-07-05 06:41] LABS: INR 2.79
[2018-07-05 08:00] VITALS: BP 84/56
[2018-07-05 08:30] VITALS: BP 93/52
[2018-07-05] MEDS: CETIRIZINE HCL 10 MG TAB PO SCH (09:13)
[2018-07-05] MEDS: FOLIC ACID 1 MG TAB PO SCH (09:13)
--- NOTE | 2018-07-05 09:19 | NUR ---
ST Encounter Pt seen for cognitive linguistic and dysphagia interventions. Provided instruction in strategies to support immediate recall and follow-through with multi-level sequences. Breakdown occurred with sequences >2-step. Attention span much improved vs initial evaluation. May be reflective of reduced fatigue with encounter occurring earlier in day. Dysphagia tx focused on contextualized instruction in compensatory swallow strategies at morning meal. Pt with single cough response after thin liquid trial. Eliminated with instruction to decrease bolus size. Pt with difficulty masticating soft pieces of meat. Discussed strategies to increase moisture, will communicate with dietary staff. Pt successful with strategies to encourage decreased rate of intake, bolus size modifications, and rest breaks for respiration. 1. Diet: mechanically altered diet, thin liquids. 2. Medications: Whole, ok with thin liquids, one at a time. 3. Compensatory Techniques: regular oral hygiene, upright positioning during PO intake, cues to consume small bites/sips, one bite/sip at a time, take rest breaks for respiration. 4. Constant supervision with meals Sw: 1. Patient will execute compensatory swallow strategies and adhere to safe swallow precautions with min verbal/visual cues during participation in mealtime activities. 07/05: Max to mod cues. 2. The patient will safely and efficiently tolerate an advanced diet and thin liquids with independent implementation of safe swallow strategies and no s/s of aspiration. 07/05: advanced solids not attempted. Thin liquids tolerated during 90% of attempts. Sp/Co. The patient will sustain attention to functional, structured cognitive linguistic tasks for 5 min intervals with min cues for redirection to support participation in daily routine. 07/05: MET 2. The patient will execute 2-step instructions for participation in ADL tasks with mod cues for use of information processing strategies. 07/05: Max cues 3. The patient will refer to external compensatory systems with min cues to support short-term recall of daily activities, functional facts, and orientation info with improved participation in daily routine and effective communication. 07/05: immediate recall, mod cues.
--- NOTE | 2018-07-05 10:41 | NUR ---
14-day MDS completed with pt. C: 09, D: 02, E: no concerns, Q: pt plans to DC to live with her daughter in [place], [place], no referrals made yet. Will continue to follow for DC needs.
--- NOTE | 2018-07-05 11:13 | NUR ---
Occupational Therapy Impression CGA<>Min A for sit<>stands from various surfaces. Pt requires cues for safety and sequencing. UB ther ex seated. Set-up UB dressing. Min A LB dressing with taxi driver. Pt reports desire to discharge to daughter's and plans to cook simple meals (I)ly . Plan for cooking task Sunday to assess safety within kitchen. Continue POC. Occupational Therapy Goals 1. Pt. to perform showering activities with Mod A. 2. Pt. to perform toileting activities with Min A. 3. Pt. to perform grooming activities with Min A. 4. Pt. to increase Mica Index of ADL score by 2 points. 5. Pt. to perform dressing activities with Mod A. Patient's Goal
[2018-07-05 11:46] VITALS: BP 110/70
--- NOTE | 2018-07-05 12:36 | NUR ---
Physical Therapy Impression Pt performed 5x2 sit<>stand transfers from a typical height chair with CGA-Min A and verbal cueing for technique. Exercise to build functional strength and also promote problem solving for safe technique. Pt demonstrated poor carryover of instructed technique. Pt ambulated 50' x2 with RW and seated rest break. Pt required CGA/SBA during ambulation for safety. Noted dry and calloused skin on montrell-wound which was wiped off with gauze. Debridement not performed today. Noted 0.4cm depth from 6-12 o'clock. Wound packed with collagen with silver and dressed with silicone boarder dressing. Physical Therapy Goals 1. SBA bed mobility. 2. SBA transfers. 3. SBA gait x 150' with appropriate assistive device. 4. Ascend/descend 2 stairs CGA. 5. Improve TUG to less than/equal to 29 seconds as indicator of improved safety with functional mobility. Patient's Goals
[2018-07-05] MEDS: WARFARIN SOD 2 MG TAB PO SCH (13:07)
[2018-07-05 15:40] VITALS: BP 105/67
[2018-07-05] MEDS: NS 0.9% IV SCH (18:00)
[2018-07-05] MEDS: DAPTOMYCIN IV SCH (18:00)
[2018-07-05] MEDS ORDERED: NS(*) 0.9% 500 ML BAG 500 ML ONE (18:20)
--- NOTE | 2018-07-05 19:05 | Consultant Pharmacy Review ---
Fire Coordinator Review Medication Review Do All Mecications have a Diag: Yes Other General Cautions Patient is 82 years old and is a candidate for BEERs Evaluation. No medications of concern regarding BEERs. Consulted with Dr Thomson regarding combination of cetirizine and duonebs. Patient has had some tachycardia and this combination is not advisable and can cause tachycardia. Cetirizine was DC'd from patient med list. Pneumococcal Vaccine HX Pneumo Vac ([id number]): Yes (03/02/16) HX Pneumo Vac (Pneumovax): Yes (04/02/07 (per pharmacy only need one dose if >65 YO)) Notified? MD Notified?: Yes (cetirizine dc'd) RONNY OTT Jul 05, 2018 19:05
[2018-07-05] MEDS: TAMSULOSIN HCL 0.4 MG CAP PO SCH (20:47)
[2018-07-06] MEDS: ALBUTEROL/IPRATROPIUM 3 ML NEB NEB SCH ×3 (06:15→18:13)
[2018-07-06] MEDS: LEVOTHYROXINE SOD 0.088 MG TAB PO SCH (06:23)
[2018-07-06 06:44] LABS: INR 3.4
[2018-07-06 07:55] VITALS: BP 116/65
[2018-07-06] MEDS: FOLIC ACID 1 MG TAB PO SCH (08:46)
[2018-07-06] MEDS: WARFARIN SOD 1 MG TAB PO SCH (12:35)
[2018-07-06] MEDS: LEVOFLOXACIN 750 MG TAB PO SCH (12:45)
[2018-07-06 15:20] VITALS: BP 104/69
[2018-07-06] MEDS: DAPTOMYCIN IV SCH (18:24)
[2018-07-06] MEDS: NS 0.9% IV SCH (18:24)
[2018-07-06] MEDS: ACETAMINOPHEN 325 MG TAB PO PRN (21:30)
[2018-07-06] MEDS: TAMSULOSIN HCL 0.4 MG CAP PO SCH (21:30)
[2018-07-07] MEDS: ALBUTEROL/IPRATROPIUM 3 ML NEB NEB SCH ×3 (05:16→17:29)
[2018-07-07] MEDS: LEVOTHYROXINE SOD 0.088 MG TAB PO SCH (05:31)
[2018-07-07 06:19] LABS: INR 3.58
[2018-07-07 06:28] LABS: PLATELET COUNT, AUTOMATED 158 K/uL (150-450)
[2018-07-07 08:00] VITALS: BP 109/72
[2018-07-07] MEDS: FOLIC ACID 1 MG TAB PO SCH (09:21)
[2018-07-07] MEDS: NYSTATIN 100,000 U/GM PWD 15GM TP PRN (13:31)
[2018-07-07] MEDS: WARFARIN SOD 1 MG TAB PO SCH (13:32)
[2018-07-07 17:30] VITALS: BP 94/63
[2018-07-07] MEDS ORDERED: NS 0.9% IV SCH (18:00)
[2018-07-07] MEDS ORDERED: DAPTOMYCIN IV SCH (18:00)
[2018-07-07] MEDS: TAMSULOSIN HCL 0.4 MG CAP PO SCH (20:50)
[2018-07-07] MEDS: ACETAMINOPHEN 325 MG TAB PO PRN (20:51)
[2018-07-08] MEDS: ALBUTEROL/IPRATROPIUM 3 ML NEB NEB SCH ×3 (05:33→18:16)
[2018-07-08] MEDS: LEVOTHYROXINE SOD 0.088 MG TAB PO SCH (06:15)
[2018-07-08 06:19] LABS: INR 3.72
[2018-07-08 08:00] VITALS: BP 119/60
[2018-07-08] MEDS: FOLIC ACID 1 MG TAB PO SCH (08:45)
--- NOTE | 2018-07-08 11:35 | NUR ---
Physical Therapy Impression Pt with significant SOB with only minimal activity this date. Declining need for rest breaks during session. Multiple cues to slow and control breathing with activity. VC's for hand placement with sit <> stands from couch and bin-chair, even with multiple consecutive reps. Pt unable to doff slippers and damion socks without total assist. Poor problem solving for safe mobility in slightly cramped and cluttered space of room, thus increasing risk of falls in her home environment. Pt resting in bed at end of session. Notified nursing of pt's increased SOB. Cont. with POC. Physical Therapy Goals 1. SBA bed mobility. 2. SBA transfers. 3. SBA gait x 150' with appropriate assistive device. 4. Ascend/descend 2 stairs CGA. 5. Improve TUG to less than/equal to 29 seconds as indicator of improved safety with functional mobility. Patient's Goals
--- NOTE | 2018-07-08 12:43 | NUR ---
ST Encounter Pt seen for cognitive linguistic and dysphagia interventions. Cog/lang tasks focused on pt instruction in self-talk, info repetition, and pacing to improve short-term recall and follow- through with multi-level sequences. Breakdown cont to occur with sequences >2-step, and information with >2 components. Pt benefits from reducing quantity of information to support processing. Pt extremely SOB at rest. Attempted diaphragmatic breathing exercises and laryngeal relaxation techniques. Largely unsuccessful with apparent exacerbation in shortness of breath and tendency to trigger wheezing/cough response. SOB further resulted in increased signs of aspiration with thin liquid trials. Coughing occurred with 100% of thin liquids via straw, eliminated with use of cup rim. Pt able to summarize and execute compensatory swallow strategies with direct instruction and access to visual aide. Carryover between tx sessions not yet observed. Will plan to see at meal next encounter, as staff reports ongoing coughing with impulsive behaviors during PO intake in the absence of continuous instruction. 1. Diet: mechanically altered diet, thin liquids. 2. Medications: Whole, ok with thin liquids, one at a time. 3. Compensatory Techniques: regular oral hygiene, upright positioning during PO intake, cues to consume small bites/sips, one bite/sip at a time, take rest breaks for respiration, NO straws. 4. Constant supervision with meals Sw: 1. Patient will execute compensatory swallow strategies and adhere to safe swallow precautions with min verbal/visual cues during participation in mealtime activities. 07/08: Max to mod cues. 2. The patient will safely and efficiently tolerate an advanced diet and thin liquids with independent implementation of safe swallow strategies and no s/s of aspiration. 07/08: Thin liquids tolerated during 100% of attempts via cup, 0% of attempts via straw Sp/Co. The patient will sustain attention to functional, structured cognitive linguistic tasks for 5 min intervals with min cues for redirection to support participation in daily routine. 07/05: MET 2. The patient will execute 2-step instructions for participation in ADL tasks with mod cues for use of information processing strategies. 07/08: Max fading to mod cues 3. The patient will refer to external compensatory systems with min cues to support short-term recall of daily activities, functional facts, and orientation info with improved participation in daily routine and effective communication. 07/08: mod cues
--- NOTE | 2018-07-08 12:50 | NUR ---
Occupational Therapy Impression CGA transfers with v/c's to safely sequence. Light kitchen task with max v/c's for safety/sequencing and min physical assist. Pt may benefit 01/01 supervision in order to have physical assist as needed and supervision for safety. Continue POC. Occupational Therapy Goals 1. Pt. to perform showering activities with Mod A. 2. Pt. to perform toileting activities with Min A. 3. Pt. to perform grooming activities with Min A. 4. Pt. to increase Mica Index of ADL score by 2 points. 5. Pt. to perform dressing activities with Mod A. Patient's Goal
[2018-07-08] MEDS: FUROSEMIDE 20 MG TAB PO SCH (12:53)
[2018-07-08] MEDS ORDERED: WARFARIN SOD 1 MG TAB PO ONE (13:00)
[2018-07-08 15:35] VITALS: BP 126/52
--- NOTE | 2018-07-08 17:11 | Medical Nutrition Therapy ---
Nutrition Anthropometrics Height (Inches): 61.00 Height (Calculated Centimeters: 154.703083 Weight (Pounds): 132 Weight (Calculated Kilograms): 59.874 BMI: 24.9 Jackson Nutrition Score: Probably Inadequate Jackson Nutrition Risk Score: 16 Dietary Referral Nutrition Risk Factors: Diff. Swallowing, Non-Healing Wound, Special Diet Nutrition Risk Comment: States weighed 118# before this hospitalization Nutritional Diagnosis Nutritional Risk Acuity 2: Swallowing Problem, Abcess/Non-Healing Wound Past Medical History: T2DM, RA, CHF, Neuropathy Nutritional Acuity: 2-Moderate Nutrition Diagnosis: Swallowing Difficulties Nutrition Etiology: Physiological Causes Nutrition Problem/Etiology/Sym: AEB dx aspiration pneumonia Energy Requirement: 1675 (M- St J X 1.5 SF based on est dry wt 105#) Protein Requirement: 71 (1.5 g/kg based on est dry wt 105#) Fluid Requirement: 1200 (25ml/kg based on est dry wt 105#) Nutrition Intervention: Cont diet as ordered, Encourage intake, HS snack, Between meal supplement Drug: Warfarin Food Likes: prefers a cramb cartcher Do Not Serve Any of the Follow: Broccoli, Brussel Sprouts, Spinach, [place] Lettuce, Cranberry Juice Additional Diet Restrictions: OFFER NUTR SUPPLMENTS Nutrition Monitoring & Eval Nutrition Goals: Eat 75-100% Meal Nutrition Follow-Up: Fair Intake RD Patient Assessment Time: [address] Assessment Type: RD Re-Assessment Patient Nutrition Acuity: 2-Moderate Follow Up Date: Jul 16, 2018 Nutritional Comment: 06/25 Pt admitted s/p aspiration pneumonia. Pt on dysphagia 2 diet with thin liquids per SPL eval. Pt has increased nutr needs r/t open wound to toe. Wt is up 26% from est dry wt of 105# on 05/30/18. Pt has 2+ edema LE and 4+ edema to feet. Anticipate wt loss when edema resolved. Nutr significant low labs: Alb 2.2, prealb 12.3, Fe 19. CRP elevated at 8.3. A1c 5.9. BG elevated up to 153 past 3 days. Pt was eating 0-25% of meals on med floor. Will offfer nutr supplment to increase kcal and protein intake. BK 07/01 pt cont on Dyspagia 2 diet. Intake average 62% of small portions with occasional nutr supplment. No new wt. pt cont 3+ pitting edema BLE. Anticipate wt loss when edema resolved with est dry wt 105#. Alb 3. Prealbumin is pending. Will cont to monitor and encourage intake. BK 07/09 Pt cont choking at mealtimes despite dsyphagia 2 diet. Intake average 69% of small to regular portions with occasional nutr supplement. No new wt. Pt cont 2+ edema LE. Pt is on K+ depeting duiretic however K+ is WNR at 4.6. Alb low at 2.4, prealb low at 11.8. Pt cont on warfarin and limiting high Vit K foods. PARTH MCFARLAND Jul 08, 2018 17:11
[2018-07-08] MEDS: TAMSULOSIN HCL 0.4 MG CAP PO SCH (21:01)
[2018-07-08] MEDS: ACETAMINOPHEN 325 MG TAB PO PRN (21:01)
[2018-07-09] MEDS: ALBUTEROL/IPRATROPIUM 3 ML NEB NEB SCH ×3 (05:49→17:04)
[2018-07-09] MEDS: LEVOTHYROXINE SOD 0.088 MG TAB PO SCH (06:09)
[2018-07-09 07:01] LABS: PLATELET COUNT, AUTOMATED 154 K/uL (150-450)
[2018-07-09 07:09] LABS: INR 3.39
[2018-07-09 08:10] VITALS: BP 103/63
[2018-07-09] MEDS: FUROSEMIDE 20 MG TAB PO SCH (08:47)
[2018-07-09] MEDS: FOLIC ACID 1 MG TAB PO SCH (08:47)
--- NOTE | 2018-07-09 09:15 | NUR ---
Physical Therapy Impression Pt progressing slowly with PT interventions but is willing to participate. CGA for STS transfers, pt requires consistent verbal cues to push up from surface vs. pull on walker. AMbulation 2x180' with use of RW, PT encouraged pt to take standing rest breaks when she became SOB. Pt demonstrating fair tolerance to standing static balance tasks. COntinue with POC> Physical Therapy Goals 1. SBA bed mobility. 2. SBA transfers. 3. SBA gait x 150' with appropriate assistive device. 4. Ascend/descend 2 stairs CGA. 5. Improve TUG to less than/equal to 29 seconds as indicator of improved safety with functional mobility. Patient's Goals
--- NOTE | 2018-07-09 09:35 | NUR ---
WOUND CARE: Physical Therapy Impression Wound demonstrates mild maceration of periwound tissue, but with a healthy wound base. Undermining of 0.3 cm D from 6-12 o clock present. PT completed conservative, selective debridement of non-viable tissue and slough with tweezers to the depth of the subcutaneous tissue. Wound base treated with moistened collagen and then wound gently packed with calcium alginate with silver. PT placed a donut of QWIK around wound to help assist with offloading, followed by a silicone bordered dressing. Physical Therapy Goals 1. SBA bed mobility. 2. SBA transfers. 3. SBA gait x 150' with appropriate assistive device. 4. Ascend/descend 2 stairs CGA. 5. Improve TUG to less than/equal to 29 seconds as indicator of improved safety with functional mobility. Patient's Goals
--- NOTE | 2018-07-09 12:44 | NUR ---
Occupational Therapy Impression V/c's for safety with mobility and transfers throughout tx. CGA with RW. Min A-Mod A threading LB clothing. Min A pulling clothing over hips. Limited to no carryover with use of LB AE. Min A toileting. Rec 01/01 care upon discharge. Will continue to encourage carryover over and safety with ADLs. Occupational Therapy Goals 1. Pt. to perform showering activities with Mod A. 2. Pt. to perform toileting activities with Min A. 3. Pt. to perform grooming activities with Min A. 4. Pt. to increase Mica Index of ADL score by 2 points. 5. Pt. to perform dressing activities with Mod A. Patient's Goal
--- NOTE | 2018-07-09 12:55 | OT ECF NOTE ---
Type of Note: 2-week progress note Primary Medical Diagnosis: Pneumonia Occupational Therapy Evaluation Date: 06-25-18 SUBJECTIVE: Prior Hospitalization: 05/29/19 admitted to [facility] Medical unit for acute renal failure. Pt. has had 2 stays on [facility] medical unit (06-07-18 till 09-27) and (06-19-18 till 06-25-18), following being dx with aspiration pneumonia. Pt. is being admitted to [facility] from the [facility] medical unit for continued rehab. Prior Level of Function: Pt. was living alone prior to d/c admission. Prior Living Status: Pt. was residing in [facility]. Community Services: Home Accessibility: 15 stairs to access daughters apartment. Equipment Owned: [facility] Medical Complications/Past Medical History: Please refer to chart for details. Psychosocial Support: Supportive daughter in [place] Pain Scale (0-10): No pain stated upon evaluation. OBJECTIVE: Strength: MMT: Right Left Shoulder Flexion [*] [*] Elbow Flexion [*] [*] Wrist Extension [*] [*] General Car Yard Supervisor [*] [*] (5= normal, 4= good, 3= fair, 2= poor, 1= trace) ROM: severely limited in BUE's. Functional Transfer: Assistive Device: FWW Transfer Ability: CGA-v/c's for safety awareness and problem solving ADL: Upper body dressing: Assistive device: None Upper body dressing ability: Minimum assistance Lower body dressing: Assistive device: Director Retirement, Sock aid, Long-handled shoe horn, Dressing stick Lower body dressing ability: Moderate-Maximum assistance. Pt will continue to benefit from methods to improve carryover for use of LB AE. Toileting: Assistive device: Grab bars Toileting ability: Minimum assistance Grooming/hygiene: Standing Assistive device: None Grooming ability: Minimum assistance Bathing:N/T Assistive device: Bathing ability: Standardized Assessment: Mica Index of Activities of Daily Living- Pt. scored 8/20 on this Index upon admission to [facility]. 04/30 upon 2-week progress note (07/09/18). ASSESSMENT: Pt. is a 82 year old female who has been readmitted to [facility] for continued rehab following another stay on [facility] medical unit after being treated for pneumonia. Pt. plans to d/c to [place] where her daughter resides, to stay with her daughter in her apartment with Care or to a alf facility. Problem List/Current Limitations: Short Term Goals: 1. Pt. to perform showering activities with Mod A. Progressing towards 2. Pt. to perform toileting activities with Min A. Progressing towards 3. Pt. to perform grooming activities with Min A. Goal met. Pt. to perform grooming activities with CGA standing. New goal. 4. Pt. to increase Mica Index of ADL score by 2 points. Goal Met. 5. Pt. to perform dressing activities with Mod A. Progressing towards Care Home Goals: Rec 01/01 supervision upon discharge home due to varied levels of assist required for functional mobility and decreased problem solving/safety awareness with ADLs/IADLs. Patient Goals: d/c to daughters apartment Rehabilitation Prognosis: Fair Barriers to Discharge: cognitive decline PLAN: The patient will benefit from skilled occupational therapy services 5 times per week for 2 weeks including: Ther ex ADL training Safety training Ther act IADL training Transfer training Adaptive equip training Bed mobility Thank you for this referral. If you have any questions, concerns, or comments about this report or plan, please contact me at . Dominga Crawford MS, OTR/L Occupational Therapist [facility]
[2018-07-09] MEDS: WARFARIN SOD 1 MG TAB PO SCH (13:12)
--- NOTE | 2018-07-09 13:24 | NUR ---
ST Encounter Cog/lang tasks focused on pt instruction in self-talk, info repetition, and pacing to improve short-term recall and follow- through with multi-level sequences. Pt able to retain and execute 3-level sequences with multiple repetitions and cues for self-talk strategy. Pt benefits from reducing complexity of information to support processing. Pt able to summarize and execute compensatory swallow strategies at noon meal after initial instruction and w/ access to visual aide. Pt w/ reduced need for cuing vs prior encounter. Single cough response noted with attempt to consume thin liquids while simultaneously masticating soft solids. All other trials tolerated without signs of aspiration including medication administration in conjunction with RN. 1. Diet: mechanically altered diet, thin liquids. 2. Medications: Whole, ok with thin liquids, one at a time. 3. Compensatory Techniques: regular oral hygiene, upright positioning during PO intake, cues to consume small bites/sips, one bite/sip at a time, take rest breaks for respiration, NO straws. 4. Constant supervision with meals
--- NOTE | 2018-07-09 14:21 | PT ECF NOTE ---
Type of Note: Progress Note Primary Medical Diagnosis: Pneumonia Physical Therapy Evaluation Date: 06-25-18 SUBJECTIVE: Prior Hospitalization: 05/29/19 admitted to [facility] Medical unit for acute renal failure. Pt. has had 2 stays on [facility] medical unit (06-07-18 till 09-27) and (06-19-18 till 06-25-18), following being dx with aspiration pneumonia. Pt. is admitted to [facility] from the [facility] medical unit for continued rehab. Prior Level of Function: Pt. was living alone prior to this admission. Prior Living Status: Pt. was residing in [place]. Community Services: Pt's daughter indicates that pt will be moving to [place] to reside either with her or to obtain further rehab there. Home Accessibility: 15 stairs to access daughters apartment. Equipment Owned: [facility] Medical Complications/Past Medical History: Please refer to chart for details; RA, DM, wound at L) foot, aspiration pneumonia Psychosocial Support: Supportive daughter in [place], [place] Pain Scale (0-10): No pain stated OBJECTIVE: Strength: MMT reveals WNL, however, generalized weakness exhibited with early fatigue during ADL's and increased work of breathing. ROM: (please note any abnormalities) Some limitations due to RA, but hips and knees WFL overall. Sensation: (please note any abnormalities) some numbness in feet related to diabetic neuropathy. Other Neuro findings: n/a Bed Mobility: SBA- Nawaf Transfers: SBA/CGA with RW, verbal cues required for safety and sequencing Gait: 2x150' with RW and seated rest breaks Stairs: 4 stairs, CGA/Nawaf Timed Up and Go (>12 seconds indicated increased risk for falls): 40 seconds at evaluation 10 meter walk test (0.6m/second cannot function independently): n/a Other Objective Measures: n/a ASSESSMENT: The patient is progressing slowly with functional mobility and is demonstrating difficulty with carryover of instructions for safety and sequencing. It is recommended that the patient receive 24 hr care upon d/c and therefore a referral is being made to a SNF closer to the patient's daughter. The patient has demonstrated improved tolerance to function mobility overall. Problem List/Current Limitations: Decreased activity sameer, Decreased strength, Generalized weakness Short Term Goals: (ongoing) 1. SBA bed mobility. 2. SBA sit to/from stand transfers from a variety of surfaces. 3. SBA gait x 150' with appropriate assistive device. 4. Ascend/descend 2 stairs CGA. 5. Improve TUG to less than/equal to 29 seconds as indicator of improved safety with functional mobility. Rope Walker Goals: Transition to local SNF for further rehab closer to daughter's home Patient Goals: Return to least restrictive environment when able Rehabilitation Prognosis: Good Barriers for Discharge: Arthritic changes related to RA make self care and pericare challenging. Current level of fatigue impairs pt's ability to safely complete stairs necessary to access daughter's home. PLAN: The patient will benefit from skilled physical therapy services 5 times per week for 2 weeks including: Therapeutic Exercise Therapeutic Activities, Transfer Training, Gait Training, Stair Training, ADL's, Safety Training, Wound Care, Pt/Caregiver Training, Bed Mobility Thank you for this referral. If you have any questions, concerns, or comments about this report or plan, please contact me at . Tete Blair, PT, DPT MTDD
[2018-07-09 17:00] VITALS: BP 105/68
[2018-07-09] MEDS: NS 0.9% IV SCH (18:00)
[2018-07-09] MEDS: DAPTOMYCIN IV SCH (18:00)
[2018-07-09] MEDS: TAMSULOSIN HCL 0.4 MG CAP PO SCH (20:37)
[2018-07-10] MEDS: ALBUTEROL/IPRATROPIUM 3 ML NEB NEB SCH ×3 (05:32→17:15)
[2018-07-10] MEDS: LEVOTHYROXINE SOD 0.088 MG TAB PO SCH (06:11)
[2018-07-10 06:35] LABS: INR 3.54
[2018-07-10 07:30] VITALS: BP 92/54
[2018-07-10 08:49] VITALS: BP 119/64
[2018-07-10] MEDS: FOLIC ACID 1 MG TAB PO SCH (08:51)
[2018-07-10] MEDS: FUROSEMIDE 20 MG TAB PO SCH (08:53)
--- NOTE | 2018-07-10 10:51 | NUR ---
INR 3.54 called to [facility] Mckeon. Coumadin has already been placed on hold today.
--- NOTE | 2018-07-10 12:17 | NUR ---
Occupational Therapy Impression Improved carryover with safe sequencing of sit<>stands this date. CGA ambulation x60ft with RW. Incorporating thresholds and various surfaces. CGA sit<>stand from low, soft couch. Repetitive learning with LB AE. Improved carryover with use AE for LB dressing. Implements must be provided by OT to initiate task but pt able to problem solve how to appropriately use items. Continue POC. Occupational Therapy Goals 1. Pt. to perform showering activities with Mod A. Progressing towards 2. Pt. to perform toileting activities with Min A. Progressing towards 3. Pt. to perform grooming activities with Min A. Goal met. Pt. to perform grooming activities with CGA standing. New goal. 4. Pt. to increase Mica Index of ADL score by 2 points. Goal Met. 5. Pt. to perform dressing activities with Mod A. Progressing towards Patient's Goal
[2018-07-10] MEDS: WARFARIN SOD 2 MG TAB PO SCH (13:00)
--- NOTE | 2018-07-10 13:55 | Hospitalist Progress Note ---
Subjective Progress Notes Subjective The patient has some abdominal distention which is recurrent. Per nursing staff she has been having regular BMs. Physical Exam Vital Signs Date Time Temp Pulse Resp B/P (MAP) Pulse Ox O2 Delivery O2 Flow Rate FiO2 07/10/18 11:14 77 16 07/10/18 11:08 96 Room Air 07/10/18 08:49 119/64 (82) 07/10/18 07:30 97.6 07/06/18 07:55 1.0 l Intake and Output 07/10/18 07:00 Intake Total 1070 ml Balance 1070 ml Intake Oral 1070 ml # Voids 4 # Bowel Movements 3 General Appearance: Alert, Awake, No Acute Distress Cardiovascular: Other (Irregularly irregular with click and KAREEN) Respiratory: Other (Scattered rhonchi and occasional wheeze.) GI: Other (Distended, slightly tender with excellent bowel sounds.) Psych: Appropriate Mood & Affect Result Diagram: 07/09/1853 07/09/18652 Assessment and Plan Problems: (1) Aspiration pneumonia Status: Acute Assessment & Plan: She was noted to have cough, fever, and elevated WBC. Her chest x-ray noted interstitial pneumonia. She was started on Levaquin 750mg q48 hours (Renal Dosed) on 07/02 for aspiration pneumonia. She is now off of antibiotics. 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 Dr. Orantes has been following her as an outpatient. Purulent discharge was noted on initial evaluation and a wound culture has grown MRSA. A plain film was negative for osteomyelitis. Physical therapy is providing wound care. She completed a total 14 days therapy of Vancomycin on Jun.12. She then developed fever. There was concern for recurrent infection. MRI could not be done to to prosthetic MV. A 3 phase bone study was done. Osteomyelitis could not be ruled out. Surgery was consulted and recommended treating with Vancomycin for a complete 6 weeks as the patient is not a good surgical candidate. Vancomycin was restarted and then stopped due to concern that it may have contributed to her rash. She is now on daptomycin. Her dose has been adjusted based on her renal function. (3) Abdominal distention Assessment & Plan: She has developed increased abdominal distention intermittently. CHF was considered, but a BNP on 1/7/[address] abdomen did not show significant ascites. BS are normal and per nursing she is having regular BMs. She is not having nausea or vomiting. Will follow. (4) Weakness Status: Acute Assessment & Plan: She was having more falls at home prior to admission. She had lost about 5 pounds in the last 12 days prior to admission. Prealbumin was low at 16.7 on admission and decreased to 12.3 on 06/16. OT/PT were following the patient. She was placed on SHANNAN to ensure adequate calorie intake and also adequate protein intake. Calorie count ordered. (5) Atrial fibrillation, controlled Status: Chronic Assessment & Plan: She was on chronic treatment with digoxin and warfarin. The digoxin was held secondary to bradycardia (HR in the 30's while sleeping) and concerns that it might be contributing to her falls. Her rate is controlled off the digoxin and she is no longer having the bradycardia. Looking back at EMR outpatient visits, her usual dose of Coumadin had been 1.5mg daily x 6 days per week and 2mg once per week. She did come in supra-therapeutic. Her INR was low on 1.5mg a day. She was placed on Lovenox while she was sub-therapeutic, but it will be stopped as she developed an abdominal wall hematoma. Watch INR closely. (6) Mitral valve disorder Status: Acute Assessment & Plan: INR goal is 2.5-3.5. Watch INR closely. Her dose has been adjusted intermittently due to being on and off of antibiotic therapy. (7) Type 2 diabetes mellitus without complications Status: Chronic Assessment & Plan: Metformin was initially held secondary to ARF and normal BS. She was placed on diet as tolerated secondary to the weight loss. AC and HS g lucoses were followed. BS were adequate off of metformin so it was discontinued. (8) Anemia Status: Chronic Assessment & Plan: Iron studies showed a low iron level (on Niferex bid). Ferritin was normal, but could be due to acute inflammation. Stool was positive for occult blood. She did receive 2 units of red cells on 06/08. She was continued on anticoagulation secondary to the prosthetic MV and the high stroke risk. Hgb stabilized. PPI was started. B12 and folate were rechecked and were WNL. (9) Rheumatoid arthritis Status: Chronic Assessment & Plan: She is chronically on methotrexate. (10) Acquired hypothyroidism Status: Chronic Assessment & Plan: She was continued on levothyroxine. TSH was 0.88. Time Spent on Plan of Care: < 30 min NIKOLAI LOPES MD Jul 10, 2018 13:55
--- NOTE | 2018-07-10 14:25 | NUR ---
Discussed edema and abdominal tenderness with Dr. Ned Thomson. Rachael Thomson asked if we could apply PRANEETH bandages instead of TEDs (patient does not tolerate TEDs too well). Rachael Thomson also stated if patient begins to experience N/V to call the hospitalist (abdomen is very distended and tender upon palpation). No lasix due to creatinine.
--- NOTE | 2018-07-10 16:22 | NUR ---
ST Encounter Dysphagia not directly targeted this encounter. RN reports ongoing impulsive self-feeding behaviors at meals, suggesting poor carryover outside of structured activities. Cog/lang tasks focused on pt instruction in self-talk, info repetition, use of external visual aides, and visualization to improve short-term recall of new info and follow- through with multi-level sequences. Pt able to retain and execute 3-level sequences with multiple repetitions and cues for self-talk strategy. Pt also able to retain up to 4 components with mod fading to min cues for strategy use. Despite difficulty executing swallow strategies at meals, pt independently summarized information without access to visual aide. Retention appears to be improving with repeated practice opportunities; however, physical execution of retained info continues to be lacking. Will directly address both cog/lang and swallowing deficits next encounter. Continue to recommend 24/7 supervision at discharge.
--- NOTE | 2018-07-10 16:44 | NUR ---
Physical Therapy Impression Upon knocking on pt's door, pt stated "no". Asked pt if she would be willing to participate with therapy for either mobility or exercises, pt replied "no" and covered her face with her blankets. Pt noted she needed nothing further at that time other than to be left alone. Notified nursing. Physical Therapy Goals 1. SBA bed mobility. 2. SBA transfers. 3. SBA gait x 150' with appropriate assistive device. 4. Ascend/descend 2 stairs CGA. 5. Improve TUG to less than/equal to 29 seconds as indicator of improved safety with functional mobility. Patient's Goals
[2018-07-10 17:30] VITALS: BP 108/68
[2018-07-10] MEDS: TAMSULOSIN HCL 0.4 MG CAP PO SCH (20:32)
[2018-07-11] MEDS: ALBUTEROL/IPRATROPIUM 3 ML NEB NEB SCH ×3 (05:50→17:21)
[2018-07-11] MEDS: LEVOTHYROXINE SOD 0.088 MG TAB PO SCH (06:14)
[2018-07-11 08:00] VITALS: BP 90/40
[2018-07-11] MEDS: FOLIC ACID 1 MG TAB PO SCH (09:01)
[2018-07-11 09:49] VITALS: BP 125/57
[2018-07-11] MEDS: WARFARIN SOD 1 MG TAB PO SCH (12:49)
--- NOTE | 2018-07-11 13:39 | NUR ---
Physical Therapy Impression Transfers practiced from a variety of surfaces in living room. She was unable to rise to stand from a lowered arm chair without Nawaf, but did demonstrate good ability to rise from sofa with CGA. Pt completed 5x STS from sofa. PT instructed pt in seated LE ther-ex with fair tolerance. Physical Therapy Goals 1. SBA bed mobility. 2. SBA transfers. 3. SBA gait x 150' with appropriate assistive device. 4. Ascend/descend 2 stairs CGA. 5. Improve TUG to less than/equal to 29 seconds as indicator of improved safety with functional mobility. Patient's Goals
--- NOTE | 2018-07-11 14:20 | NUR ---
Occupational Therapy Impression Good recall for use of LB AE. Implements must be provided by OT to initiate task but pt able to problem solve how to appropriately use items. (I) limited by edema and castillo wraps this date. CGA ambulation with RW. Incorporating dynamic standing balance reaching for items high/low and crossing midline. No loss of balance. Good SUNNY utilizing one and two UE to retrieve items. Continue POC. Occupational Therapy Goals 1. Pt. to perform showering activities with Mod A. Progressing towards 2. Pt. to perform toileting activities with Min A. Progressing towards 3. Pt. to perform grooming activities with Min A. Goal met. Pt. to perform grooming activities with CGA standing. New goal. 4. Pt. to increase Mica Index of ADL score by 2 points. Goal Met. 5. Pt. to perform dressing activities with Mod A. Progressing towards Patient's Goal
[2018-07-11 17:00] VITALS: BP 104/60
[2018-07-11] MEDS: DAPTOMYCIN IV SCH (18:00)
[2018-07-11] MEDS: NS 0.9% IV SCH (18:00)
[2018-07-11] MEDS ORDERED: NS(*) 0.9% 500 ML BAG 500 ML ONE (18:06)
[2018-07-11] MEDS: TAMSULOSIN HCL 0.4 MG CAP PO SCH (21:00)
[2018-07-11] MEDS ORDERED: NS(*) 0.9% 500 ML BAG 500 ML IV PRN (21:15)
[2018-07-12] MEDS: LEVOTHYROXINE SOD 0.088 MG TAB PO SCH (06:24)
[2018-07-12] MEDS: ALBUTEROL/IPRATROPIUM 3 ML NEB NEB SCH ×3 (06:28→18:35)
[2018-07-12 07:18] LABS: INR 2.45
[2018-07-12 07:30] VITALS: BP 104/58
[2018-07-12] MEDS: FOLIC ACID 1 MG TAB PO SCH (08:44)
--- NOTE | 2018-07-12 13:01 | NUR ---
Occupational Therapy Impression SBA sit<>stands with pt (I)ly completing safe sequencing. CGA ambulation with RW x180ft. Min A LB dressing with pt (I)ly selecting appropriate AE and recalling appropriate sequencing. Pt with improved (I) towards ADLs and safety awareness this date. Continue POC. Occupational Therapy Goals 1. Pt. to perform showering activities with Mod A. Progressing towards 2. Pt. to perform toileting activities with Min A. Progressing towards 3. Pt. to perform grooming activities with Min A. Goal met. Pt. to perform grooming activities with CGA standing. New goal. 4. Pt. to increase Mica Index of ADL score by 2 points. Goal Met. 5. Pt. to perform dressing activities with Mod A. Progressing towards Patient's Goal
[2018-07-12] MEDS: WARFARIN SOD 2 MG TAB PO SCH (13:16)
--- NOTE | 2018-07-12 16:13 | NUR ---
Physical Therapy Impression PT session focused on building endurance in order to tolerate ADLs and functional mobility. Pt demonstrates poor endurance at this time. Wound demonstrates mild maceration of periwound tissue, but with a healthy wound base. Undermining of 0.4 cm D from 6-12 o clock present. PT completed conservative, selective debridement of non-viable tissue and slough with tweezers to the depth of the subcutaneous tissue. Wound base treated with moistened collagen and then wound gently packed with calcium alginate with silver. PT placed a donut of QWIK around wound to help assist with offloading, followed by a silicone bordered dressing. Physical Therapy Goals 1. SBA bed mobility. 2. SBA transfers. 3. SBA gait x 150' with appropriate assistive device. 4. Ascend/descend 2 stairs CGA. 5. Improve TUG to less than/equal to 29 seconds as indicator of improved safety with functional mobility. Patient's Goals
[2018-07-12 17:00] VITALS: BP 112/67
[2018-07-12] MEDS: TAMSULOSIN HCL 0.4 MG CAP PO SCH (20:59)
[2018-07-13] MEDS: LEVOTHYROXINE SOD 0.088 MG TAB PO SCH (06:13)
[2018-07-13] MEDS: ALBUTEROL/IPRATROPIUM 3 ML NEB NEB SCH ×3 (06:21→18:03)
[2018-07-13 06:36] LABS: INR 2.37
[2018-07-13 06:44] LABS: PLATELET COUNT, AUTOMATED 164 K/uL (150-450)
[2018-07-13] MEDS: FOLIC ACID 1 MG TAB PO SCH (08:58)
[2018-07-13 09:00] VITALS: BP 123/61
[2018-07-13] MEDS: WARFARIN SOD 1 MG TAB PO SCH (13:00)
[2018-07-13] MEDS ORDERED: WARFARIN SOD 1 MG TAB PO ONE (13:15)
[2018-07-13 15:10] VITALS: BP 108/69
[2018-07-13] MEDS: DAPTOMYCIN IV SCH (18:09)
[2018-07-13] MEDS: NS 0.9% IV SCH (18:09)
[2018-07-13] MEDS: TAMSULOSIN HCL 0.4 MG CAP PO SCH (21:38)
[2018-07-14] MEDS: ALBUTEROL/IPRATROPIUM 3 ML NEB NEB SCH ×3 (05:01→17:32)
[2018-07-14] MEDS: LEVOTHYROXINE SOD 0.088 MG TAB PO SCH (05:47)
[2018-07-14 06:38] LABS: INR 2.46
[2018-07-14 08:00] VITALS: BP 100/60
[2018-07-14] MEDS: NYSTATIN 100,000 U/GM PWD 15GM TP PRN (08:19)
[2018-07-14] MEDS: FOLIC ACID 1 MG TAB PO SCH (08:19)
[2018-07-14] MEDS ORDERED: WARFARIN SOD 2 MG TAB PO SCH (13:00)
[2018-07-14 15:20] VITALS: BP 118/70
[2018-07-14] MEDS: TAMSULOSIN HCL 0.4 MG CAP PO SCH (21:00)
[2018-07-15] MEDS: LEVOTHYROXINE SOD 0.088 MG TAB PO SCH (05:19)
[2018-07-15] MEDS: ALBUTEROL/IPRATROPIUM 3 ML NEB NEB SCH ×3 (06:34→17:37)
[2018-07-15 06:44] LABS: INR 2.48
[2018-07-15 07:20] VITALS: BP 102/66
[2018-07-15] MEDS: FOLIC ACID 1 MG TAB PO SCH (08:27)
--- NOTE | 2018-07-15 10:50 | NUR ---
ST Encounter Cog/lang tasks focused on pt instruction in self-talk, info repetition, and pacing to improve short-term recall and follow- through with multi-level sequences. Pt able to retain and execute 2-level instructions for improved safety sequencing w/ min cues. Introduced calendar system to compensate for deficits in memory and temporal orientation. Pt utilized aide to recall upcoming events and current date immediately and after 5 min delay. Pt summarized and executed swallow strategies with trials of thin liquids and mech altered solids after receiving initial verbal review. Continues w/ reduced need for cuing. Single cough response noted with large volume of thins. All other trials tolerated without signs of aspiration. RN reporting reduction in coughing at meals. Pt continues to make progress with reduction in maladaptive self-feeding habits, signs of aspiration, and need for cuing during PO intake. Pt also with improved use of info processing and short term recall strategies to support safety, ADL participation, and orientation. 1. Diet: mechanically altered diet, thin liquids. 2. Medications: Whole, ok with thin liquids, one at a time. 3. Compensatory Techniques: regular oral hygiene, upright positioning during PO intake, cues to consume small bites/sips, one bite/sip at a time, take rest breaks for respiration, no straws. 4. Intermittent supervision with meals
[2018-07-15] MEDS ORDERED: WARFARIN SOD 1 MG TAB PO SCH (13:00)
--- NOTE | 2018-07-15 13:02 | NUR ---
Physical Therapy Impression Attempted to see pt for therapy to ambulate prior to lunch. Pt reported she feels cold and "crummy" and does not want to get up. Pt left in chair under blankets. Encouraged pt to get up for lunch with nursing if able. Physical Therapy Goals 1. SBA bed mobility. 2. SBA transfers. 3. SBA gait x 150' with appropriate assistive device. 4. Ascend/descend 2 stairs CGA. 5. Improve TUG to less than/equal to 29 seconds as indicator of improved safety with functional mobility. Patient's Goals
[2018-07-15] MEDS: WARFARIN SOD 2 MG TAB PO SCH (13:04)
--- NOTE | 2018-07-15 13:09 | Medical Nutrition Therapy ---
Nutrition Anthropometrics Height (Inches): 61.00 Height (Calculated Centimeters: 154.280239 Weight (Pounds): 136 Weight (Calculated Kilograms): 61.915 BMI: 24.9 Jackson Nutrition Score: Probably Inadequate Jackson Nutrition Risk Score: 16 Dietary Referral Nutrition Risk Factors: Diff. Swallowing, Non-Healing Wound, Special Diet Nutrition Risk Comment: States weighed 118# before this hospitalization Nutritional Diagnosis Nutritional Risk Acuity 2: Swallowing Problem, Abcess/Non-Healing Wound Past Medical History: T2DM, RA, CHF, Neuropathy Nutritional Acuity: 2-Moderate Nutrition Diagnosis: Swallowing Difficulties Nutrition Etiology: Physiological Causes Nutrition Problem/Etiology/Sym: AEB dx aspiration pneumonia Energy Requirement: 1675 (M- St J X 1.5 SF based on est dry wt 105#) Protein Requirement: 71 (1.5 g/kg based on est dry wt 105#) Fluid Requirement: 1200 (25ml/kg based on est dry wt 105#) Diet Type: Dysphagia Stage 2 Nutrition Intervention: Cont diet as ordered, Encourage intake, HS snack, Between meal supplement Drug: Warfarin Food Likes: white gravy with her eggs and sausage Do Not Serve Any of the Follow: Broccoli, Brussel Sprouts, Spinach, Haven Lettuc e, Cranberry Juice Additional Diet Restrictions: OFFER NUTR SUPPLMENTS Nutrition Monitoring & Eval Nutrition Goals: Eat 75-100% Meal Nutrition Follow-Up: Fair Intake RD Patient Assessment Time: [address] Assessment Type: RD Re-Assessment Patient Nutrition Acuity: 2-Moderate Follow Up Date: Jul 23, 2018 Nutritional Comment: 06/25 Pt admitted s/p aspiration pneumonia. Pt on dysphagia 2 diet with thin liquids per SPL eval. Pt has increased nutr needs r/t open wound to toe. Wt is up 26% from est dry wt of 105# on 05/30/18. Pt has 2+ edema LE and 4+ edema to feet. Anticipate wt loss when edema resolved. Nutr significant low labs: Alb 2.2, prealb 12.3, Fe 19. CRP elevated at 8.3. A1c 5.9. BG elevated up to 153 past 3 days. Pt was eating 0-25% of meals on med floor. Will offfer nutr supplment to increase kcal and protein intake. BK 07/01 pt cont on Dyspagia 2 diet. Intake average 62% of small portions with occasional nutr supplment. No new wt. pt cont 3+ pitting edema BLE. Anticipate wt loss when edema resolved with est dry wt 105#. Alb 3. Prealbumin is pending. Will cont to monitor and encourage intake. BK 07/09 Pt cont choking at mealtimes despite dsyphagia 2 diet. Intake average 69% of small to regular portions with occasional nutr supplement. No new wt. Pt cont 2+ edema LE. Pt is on K+ depeting duiretic however K+ is WNR at 4.6. Alb low at 2.4, prealb low at 11.8. Pt cont on warfarin and limiting high Vit K foods. BK 07/15 Pt cont coughing with meals. Pt cont on dyspagia 2 diet. Intake average 64% of usually small portion. Pt is taking occasional nutritional supplment. Wt trends cont upward with 3+ edema BLE. wt is up 5.5% from admitting wt to ECF. Alb cont low at 2.3, creatinine cont high but improved to 1.5. H/H cont low at 8/25.8. Will cont to monitor and encourage intake. PARTH MCFARLAND Jul 15, 2018 13:09
--- NOTE | 2018-07-15 14:04 | NUR ---
Occupational Therapy Impression CGA/close SBA ambulation x50ft, x70ft with RW. Improved (I) with sequencing sit<>stands. SBA gathering clothing from closet. Max A shower task seated. Set-up UB dressing. Pt able recall appropriate use of LB AE items. Requiring Min A to successfully utilize AE with minimal v/c's for sequencing. Pt will benefit from continued assist for ADLs in discharge environment. Occupational Therapy Goals 1. Pt. to perform showering activities with Mod A. Progressing towards 2. Pt. to perform toileting activities with Min A. Progressing towards 3. Pt. to perform grooming activities with Min A. Goal met. Pt. to perform grooming activities with CGA standing. New goal. 4. Pt. to increase Mica Index of ADL score by 2 points. Goal Met. 5. Pt. to perform dressing activities with Mod A. Progressing towards Patient's Goal
[2018-07-15] MEDS: DAPTOMYCIN IV SCH (18:19)
[2018-07-15] MEDS: NS 0.9% IV SCH (18:19)
[2018-07-15 20:25] VITALS: BP 101/60
[2018-07-15] MEDS: TAMSULOSIN HCL 0.4 MG CAP PO SCH (21:43)
[2018-07-16] MEDS: LEVOTHYROXINE SOD 0.088 MG TAB PO SCH (05:26)
[2018-07-16] MEDS: ALBUTEROL/IPRATROPIUM 3 ML NEB NEB SCH ×3 (06:03→17:45)
[2018-07-16 06:07] LABS: INR 2.61
--- NOTE | 2018-07-16 08:25 | NUR ---
Physical Therapy Impression Pt is demonstrating slight improvement in carryover of sequencing of transfers, consistently reaching back for chair when completing stand to sit transitions. Ambulation x150' with RW, pt encouraged to take standing rest breaks during ambulation in order to conserve energy.Pt instructed patient in standing balance tasks with narrow SUNNY with UE movement as well as tandem stance in order to improve balance for functional activities. Pt demonstrating fair overall balance while completing hygiene tasks in bathroom. Pt may d/c home with his daughter, and will benefit from stair training prior to d/c. Physical Therapy Goals 1. SBA bed mobility. 2. SBA transfers. 3. SBA gait x 150' with appropriate assistive device. 4. Ascend/descend 2 stairs CGA. 5. Improve TUG to less than/equal to 29 seconds as indicator of improved safety with functional mobility. Patient's Goals
--- NOTE | 2018-07-16 08:40 | NUR ---
WOUND CARE: Physical Therapy Impression Wound demonstrates mild maceration of periwound tissue, but with a healthy wound base. Undermining of 0.4 cm D from 6-12 o clock present. PT completed conservative, selective debridement of non-viable tissue and slough with tweezers to the depth of the subcutaneous tissue. Wound base treated with moistened collagen and then wound gently packed with calcium alginate with silver. PT placed a donut of QWIK around wound to help assist with offloading, followed by a silicone bordered dressing. Physical Therapy Goals 1. SBA bed mobility. 2. SBA transfers. 3. SBA gait x 150' with appropriate assistive device. 4. Ascend/descend 2 stairs CGA. 5. Improve TUG to less than/equal to 29 seconds as indicator of improved safety with functional mobility. Patient's Goals
[2018-07-16] MEDS: FOLIC ACID 1 MG TAB PO SCH (09:08)
--- NOTE | 2018-07-16 10:32 | NUR ---
Occupational Therapy Impression CGA/close SBA ambulation x50ft, x70ft with RW. Requiring Min A for sit<>stand this date. Pt able recall appropriate use of LB AE items. Requiring Min A to successfully utilize AE with minimal v/c's for sequencing. Able to pick socks up off floor with CGA seated. Pt previously unable to bend over due to significant swelling. Cont. to rec / care for assist with ADLs/IADLs. Occupational Therapy Goals 1. Pt. to perform showering activities with Mod A. Progressing towards 2. Pt. to perform toileting activities with Min A. Progressing towards 3. Pt. to perform grooming activities with Min A. Goal met. Pt. to perform grooming activities with CGA standing. New goal. 4. Pt. to increase Mica Index of ADL score by 2 points. Goal Met. 5. Pt. to perform dressing activities with Mod A. Progressing towards Patient's Goal
[2018-07-16] MEDS: WARFARIN SOD 2 MG TAB PO SCH (12:58)
[2018-07-16 19:35] VITALS: BP 102/54
[2018-07-16] MEDS: TAMSULOSIN HCL 0.4 MG CAP PO SCH (21:00)
[2018-07-16] MEDS: ACETAMINOPHEN 325 MG TAB PO PRN (23:35)
[2018-07-17] MEDS: ALBUTEROL/IPRATROPIUM 3 ML NEB NEB SCH ×3 (05:19→17:21)
[2018-07-17] MEDS: LEVOTHYROXINE SOD 0.088 MG TAB PO SCH (06:49)
[2018-07-17 07:11] LABS: PLATELET COUNT, AUTOMATED 200 K/uL (150-450)
[2018-07-17 07:36] LABS: INR 2.8
[2018-07-17 08:15] VITALS: BP 110/55
[2018-07-17] MEDS: FOLIC ACID 1 MG TAB PO SCH (09:08)
[2018-07-17] MEDS: WARFARIN SOD 2 MG TAB PO SCH (12:33)
--- NOTE | 2018-07-17 12:48 | NUR ---
Physical Therapy Impression Pt participated in stair training with Min A required to ascend/descend 4x2 stairs. Pt will likely require assistance with stairs at [place]. Discussed this with Pt who verbalizes understanding. Pt reports fatigue and leg pain after stairs. Physical Therapy Goals 1. SBA bed mobility. 2. SBA transfers. 3. SBA gait x 150' with appropriate assistive device. 4. Ascend/descend 2 stairs CGA. 5. Improve TUG to less than/equal to 29 seconds as indicator of improved safety with functional mobility. Patient's Goals
--- NOTE | 2018-07-17 12:59 | NUR ---
Occupational Therapy Impression Mod (I) supine to sit with HOB raised. Education and practice with use of 4WW this date. Pt demonstrating improved safety and tolerance with 4WW has tx progressed. Pt plans to use her personal 4WW at home upon discharge instead of a RW. Declined further ADLs (toileting). Pt continues to demonstrate improved (I) day to day. Occupational Therapy Goals 1. Pt. to perform showering activities with Mod A. Progressing towards 2. Pt. to perform toileting activities with Min A. Progressing towards 3. Pt. to perform grooming activities with Min A. Goal met. Pt. to perform grooming activities with CGA standing. New goal. 4. Pt. to increase Mica Index of ADL score by 2 points. Goal Met. 5. Pt. to perform dressing activities with Mod A. Progressing towards Patient's Goal
--- NOTE | 2018-07-17 14:20 | Hospitalist Progress Note ---
Subjective Progress Notes Subjective The patient denies pain. She states she is feeling much better overall. 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 Nontender.) Extremities: Warm, Perfused, Edema (2-3+ pitting edema of both LE.) Integumentary: Generalized Fragile Skin Psych: Alert & Oriented X3, Appropriate Mood & Affect Result Diagram: 07/17/1864607/13/18 06 Item Value Date Time Warfarin Sodium 2.5 mg 06/03/18 1405 (Coumadin 2.5 Mg QDAY@13/PO 06/07/18 1235 Tab (Or Equiv)) Lactate 3.6 mmol/L *H 06/19/18 1511 Prealbumin 9.1 mg/dL L 07/13/18 0607 Prothromb Time International Ratio 2.80 07/17/18 0647 Assessment and Plan Problems: (1) Aspiration pneumonia Status: Acute Assessment & Plan: The patient had several bouts of cough, fever, and elevated WBC during her stays on ECF. There was concern for aspiration pneumonia. Her chest x-ray noted interstitial pneumonia. Speech therapy evaluated the patient and recommended dysphagia 2 diet with thin liquids. (2) Lower extremity edema Status: Chronic Assessment & Plan: The patient had significant lower extremity edema due to protein malnutrition. Attempts at diuresis with Lasix only caused intravascular volume depletion with resultant low blood pressure and renal insufficiency. Lasix was then stopped and the patient's creatine improved. The patient's legs were wrapped with PRANEETH wraps to try and decrease her edema but she did not tolerate the wraps. 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 Dr. Orantes has been following her as an outpatient. Purulent discharge was noted on initial evaluation and a wound culture has grown MRSA. A plain film was negative for osteomyelitis. Physical therapy is providing wound care. She completed a total 14 days therapy of Vancomycin on Jun.12. She then developed fever. There was concern for recurrent infection. MRI could not be done to to prosthetic MV. A 3 phase bone study was done. Osteomyelitis could not be ruled out. Surgery was consulted and recommended treating with Vancomycin for a complete 6 weeks as the patient is not a good surgical candidate. Vancomycin was restarted and then stopped due to concern that it may have contributed to her rash. She is now on daptomycin. Her dose has been adjusted based on her renal function. (4) Abdominal distention Assessment & Plan: She has developed increased abdominal distention intermittently. CHF was considered, but a BNP on 06/17/18 was WNL. Echo also showed normal systolic function. CT abdomen did not show significant ascites. BS are normal and per nursing she is having regular BMs. She is not having nausea or vomiting. Will follow. (5) Weakness Status: Acute Assessment & Plan: She was having more falls at home prior to admission. She had lost about 5 pounds in the last 12 days prior to admission. Prealbumin was low at 16.7 on admission and decreased to 9.1on 07/17. OT/PT were following the patient. She was placed on SHANNAN (dysphagia 2) to ensure adequate calorie intake and also adequate protein intake. Calorie count ordered. (6) Atrial fibrillation, controlled Status: Chronic Assessment & Plan: She was on chronic treatment with digoxin and warfarin. The digoxin was held secondary to bradycardia (HR in the 30's while sleeping) and concerns that it might be contributing to her falls. Her rate is controlled off the digoxin and she is no longer having the bradycardia. Looking back at EMR outpatient visits, her usual dose of Coumadin had been 1.5mg daily x 6 days per week and 2mg once per week. She did come in supra-therapeutic. Her INR was low on 1.5mg a day. She was placed on Lovenox while she was sub-therapeutic, but it will be stopped as she developed an abdominal wall hematoma. Watch INR closely. (7) Mitral valve disorder Status: Acute Assessment & Plan: INR goal is 2.5-3.5. Watch INR closely. Her dose has been adjusted intermittently due to being on and off of antibiotic therapy. (8) Type 2 diabetes mellitus without complications Status: Chronic Assessment & Plan: Metformin was initially held secondary to ARF and normal BS. She was placed on diet as tolerated secondary to the weight loss and protein malnutrition. AC and HS glucoses were followed. BS were adequate off of metformin so it was discontinued. (9) Anemia Status: Chronic Assessment & Plan: Iron studies showed a low iron level (on Niferex bid). Ferritin was normal, but this was felt to be due to acute inflammation. Stool was positive for occult blood. She did receive 2 units of red cells on 06/08. She was continued on anticoagulation secondary to the prosthetic MV and the high stroke risk. Hgb stabilized. PPI was started. B12 and folate were rechecked a nd were WNL. (10) Rheumatoid arthritis Status: Chronic Assessment & Plan: She is chronically on methotrexate which was held during her inpatient and ECF stays due to active infection. (11) Acquired hypothyroidism Status: Chronic Assessment & Plan: She was continued on levothyroxine. TSH was 0.88. (12) Protein calorie malnutrition Status: Chronic Assessment & Plan: The patient's prealbumin was low during her admission and decreased steadily due to poor appetite. She was seen by the metal solderer but was unable to take in appropriate protein calories orally and did not want to have tube feedings. She will need to have ongoing monitoring of her weight, prealbumin and calorie intake after discharge. Time Spent on Plan of Care: < 30 min Problem Qualifiers (1) Protein calorie malnutrition: Protein-calorie malnutrition severity: unspecified severity Qualified Codes: E46 - Unspecified protein-calorie malnutrition NIKOLAI LOPES MD Jul 17, 2018 14:20
[2018-07-17] MEDS ORDERED: TAMS0.4C70 PO (14:25)
[2018-07-17] MEDS ORDERED: WARF1TAB15 PO (14:25)
--- NOTE | 2018-07-17 15:04 | Hospitalist Depart ---
Discharge Summary Reason for Hosp/Final Diag: (1) Aspiration pneumonia Status: Acute Hospital Course & Plan: The patient had several bouts of cough, fever, and elevated WBC during her stay at [facility]. There was concern for aspiration pneumonia. Her chest x-ray noted interstitial pneumonia. Speech therapy evaluated the ranold ent and recommended dysphagia [address] lso recommended regular oral hygiene, upright positioning during PO intake, cues to consume small bites/sips, one bite/sip at a time, take rest breaks for respiration. (2) Dysphagia Status: Chronic Hospital Course & Plan: See above. (3) Lower extremity edema Status: Chronic Hospital Course & Plan: The patient had significant lower extremity edema due to protein malnutrition. Attempts at diuresis with Lasix only caused intravascular volume depletion with resultant low blood pressure and renal insufficiency. Lasix was then stopped and the patient's creatine improved. The patient's legs were wrapped with PRANEETH wraps to try and decrease her edema but she did not tolerate the wraps. She also could not tolerate DRU hose. (4) Open wound of left foot excluding toes without complication Status: Chronic Hospital Course & Plan: The patient had a wound since April 2018. Dr. Orantes had been following her as an outpatient. Purulent discharge was noted on initial evaluation and a wound culture grew MRSA. A plain film was negative for osteomyelitis. Physical therapy provided wound care. She completed a total 14 days therapy of Vancomycin on Jun.12. She then developed fever. There was concern for recurrent infection. MRI could not be done to to prosthetic/mechanical mitral valve. A 3 phase bone study was done. Osteomyelitis could not be ruled out. Surgery was consulted and recommended treating with Vancomycin for a complete 6 weeks as the patient was not a good surgical candidate. Vancomycin was restarted and then stopped due to concern that it may have contributed to a rash she developed shortly after stopping the initial course of Vancomycin. She was switched to daptomycin. Her dose was adjusted based on her renal function. She completed a 6 week course of daptomycin on July 21, 2018. (5) Abdominal distention Hospital Course & Plan: The patient developed increased abdominal distention intermittently. CHF was ruled out due to BNP on 06/17/18 that was normal. Echo also showed normal systolic function. CT abdomen did not show significant ascites or other acute issues. BS were normal and per nursing the patient was having regular BMs. She did not have nausea or vomiting. (6) Weakness Status: Acute Hospital Course & Plan: The patient was having more falls at home prior to admission. She had lost about 5 pounds in the 12 days prior to admission. Prealbumin was low at 16.7 on admission and decreased to 9.1 on 07/17. OT/PT evaluated and treated the patient. She was placed on diet as tolerated despite her diagnosis of type II DM (dysphagia 2) to ensure adequate calorie intake and also adequate protein intake. Calorie counts were ordered. (7) Atrial fibrillation, controlled Status: Chronic Hospital Course & Plan: The patient was on chronic treatment with digoxin and warfarin on admission. The digoxin was held secondary to bradycardia (HR in the 30's while sleeping) and concerns that it might be contributing to her falls. Her rate was controlled off the digoxin and she was no longer having the bradycardia so the digoxin was discontinued altogether. Looking back at EMR outpatient visits, her usual dose of Coumadin had been 1.5mg daily x 6 days per week and 2mg once per week. She was supra-therapeutic on admission. Her dose was decreased, but her INR was low on 1.5mg a day. She was placed on Lovenox while she was sub-therapeutic, but it was stopped as she developed an abdominal wall hematoma. She was on and off of antibiotics for pneumonia (see above) and her Coumadin dose was adjusted several times during her stay. She will need close monitoring of her INR after discharge until it stabilizes. (8) Mitral valve disorder Status: Acute Hospital Course & Plan: INR goal is 2.5-3.5. See above. Her dose was adjusted intermittently due to being on and off of antibiotic therapy as noted above. (9) Type 2 diabetes mellitus without complications Status: Chronic Hospital Course & Plan: Metformin was initially held secondary to acute renal failure and normal BS during her stay. She was placed on diet as tolerated (dysphagia 2) rather than diabetic diet secondary to her weight loss and protein malnutrition. Metformin was discontinued. (10) Anemia Status: Chronic Hospital Course & Plan: Iron studies showed a low iron level (on Niferex bid). Ferritin was normal, but this was felt to be due to acute inflammation. Stool was positive for occult blood. She did receive 2 units of red cells on 06/08. She was continued on anticoagulation secondary to the prosthetic MV and the high stroke risk. Her hemoglobin stabilized. PPI therapy was started. B12 and folate were rechecked and were WNL. She will need ongoing monitoring of her H/H and further evaluation as needed as an outpatient. (11) Rheumatoid arthritis Status: Chronic Hospital Course & Plan: She is chronically on methotrexate which was held during her inpatient and ECF stays due to active infection. (12) Acquired hypothyroidism Status: Chronic Hospital Course & Plan: She was continued on levothyroxine. TSH was 0.88. (13) Protein calorie malnutrition Status: Chronic Hospital Course & Plan: The patient's prealbumin was low during her admission and decreased steadily due to poor appetite with poor oral intake. She was seen by the temporary office assistant but was unable to take in appropriate protein calories orally and did not want to have tube feedings. She will need to have ongoing monitoring of her weight, prealbumin and calorie intake after discharge. She did have significant edema due to her low protein status. Departure Weight (Pounds): 136 Weight (Ounces): 8.0 Result Diagram: 07/17/1864607/13/18606 Please see complete medical record. Please see complete medical record. Imaging Please see complete medical record. EKG Please see complete medical record. Condition: Improved Discharge: Home, Self Care PT/OT Follow Up For: PT For Strengthening, OT For ADL's, ST Evaluation and Treat Home Health RN Follow Up For: Nursing Assessment Home Health MAGNETIC LOCATER Follow Up For: ADL Assistance Discharge Code Status: Full Code Time Spent: < 30 min Discharge Instructions Home Meds Active Scripts Warfarin Sodium (WARFARIN SODIUM) 1 Mg Tablet, 2 MG PO [id number], #60 TAB Take 2 tablets by mouth Sun, Sun, , Sun, and Sun. Take 1.5 tablets on Sunday. Prov:NIKOLAI LOPES MD 07/17/18 Tamsulosin Hcl (TAMSULOSIN HCL) 0.4 Mg Cap.er.24h, 0.4 MG PO HS, #90 TAB Prov:NIKOLAI LOPES MD 07/17/18 Levothyroxine Sodium (SYNTHROID) 88 Mcg Tablet, 1 TAB PO QDAY, #45 TAB 3 Refills Prov:KACIE MENDES MD 04/04/18 Methotrexate Sodium (METHOTREXATE) 2.5 Mg Tablet, 3 TAB PO QWEEK, #12 TAB 6 Refills Prov:KACIE MENDES MD 01/28/18 Folic Acid (FOLIC ACID) 1 Mg Tablet, 1 MG PO QDAY, #90 TAB 3 Refills Prov:KACIE MENDES MD 08/07/17 Reported Medications Vit A,C & E/Lutein/Minerals (OCUVITE TABLET) 1 Each Tablet, 1 TAB PO BID 02/27/14 Calcium Carbonate/Vitamin D3 (CALCIUM 500 + D TABLET) 1 Each Tablet, 1 TAB PO BID 02/27/14 Discontinued Scripts Warfarin Sodium (WARFARIN SODIUM) 1 Mg Tablet, 1.5 MG PO QDAY, #45 TAB 11 Refills Prov:KACIE MENDES MD 05/01/18 Spironolactone (SPIRONOLACTONE) 25 Mg Tablet, 1 TAB PO QDAY, #90 TAB 3 Refills Prov:KACIE MENDES MD 05/01/18 Furosemide (FUROSEMIDE) 40 Mg Tablet, 1 TAB PO QDAY, #90 TAB 4 Refills Prov:KACIE MENDES MD 12/04/17 Digoxin (DIGOXIN) 125 Mcg Tablet, 1 TAB PO DAILY, #90 TAB 3 Refills Prov:KACIE MENDES MD 08/07/17 Metformin Hcl (METFORMIN HCL) 500 Mg Tablet, 1 TAB PO QDAY, #90 TAB 3 Refills Prov:KACIE MENDES MD 08/07/17 Activity: As Tolerated Special Instructions: 1. The patient should continue a dysphagia 2 diet with thin liquids. Per speech therapy, the patient should continue regular oral hygiene, upright positioning during PO intake, cues to consume small bites/sips, one bite/sip at a time, take rest breaks for respiration. 2. The patient should continue regular follow up with a primary care provider in [place], [place]. She will need an INR checked during the week after discharge to ensure she is maintaining an INR of 2.5-3.5 due to her mechanical mitral valve. Copies to: KACIE MENDES MD ; Venous Thromboembolism Antithrombotics Is Pt On Any Antithrombotics?: Yes [id number] Certification Face to Face Home Health Certification Institutional Provider conducted the [id number] encounter. Electronic Undersigning Physician Certifies Home Health. I certify that the patient has been under my care and that I had a [id number] encounter that meets the physician [id number] encounter requirements with this patient. This patient is home-bound due to safety issues and continues to require assistance with ADL's. I certify that based on my findings, that Nursing, Aides and the following Home Health services are medically necessary: OT, PT, ST Medical Necessity: Nursing, Rehab Date Face to Face Conducted: Jul 17, 2018 Problem Qualifiers (1) Protein calorie malnutrition: Protein-calorie malnutrition severity: unspecified severity Qualified Codes: E46 - Unspecified protein-calorie malnutrition NIKOLAI LOPES MD Jul 17, 2018 15:04
[2018-07-17 17:00] VITALS: BP 106/56
[2018-07-17] MEDS: DAPTOMYCIN IV SCH (18:00)
[2018-07-17] MEDS: NS 0.9% IV SCH (18:00)
[2018-07-17] MEDS: TAMSULOSIN HCL 0.4 MG CAP PO SCH (21:00)
[2018-07-18] MEDS: ALBUTEROL/IPRATROPIUM 3 ML NEB NEB SCH ×3 (05:07→17:13)
[2018-07-18] MEDS: LEVOTHYROXINE SOD 0.088 MG TAB PO SCH (06:15)
[2018-07-18 08:02] LABS: INR 2.49
[2018-07-18] MEDS: FOLIC ACID 1 MG TAB PO SCH (09:10)
[2018-07-18 09:30] VITALS: BP 136/84
[2018-07-18] MEDS: WARFARIN SOD 2 MG TAB PO SCH (12:44)
--- NOTE | 2018-07-18 14:06 | NUR ---
Physical Therapy Impression Pt demonstrates safe use of 4WW brakes when given verbal cues approx. 50% of the time. She does recognize need to utilize brakes. Pt tolerated ambulation 2x180', with one instance of seated rest break on 4WW. PT provided step by step cues for safely sitting on 4WW, pt will benefit from further instruction and cueing to ensure safety.Pt required minAx1 for asc/desc 4 stairs with bilateral railings. Pt with difficulty grasping handrails d/t deformities of hands from RA. Stairs were attempted with B) hands on R) railing, and pt was unable to ascend stairs safely. Rec that pt always have assistance with stair negotiation upon d.c. Physical Therapy Goals 1. SBA bed mobility. 2. SBA transfers. 3. SBA gait x 150' with appropriate assistive device. 4. Ascend/descend 2 stairs CGA. 5. Improve TUG to less than/equal to 29 seconds as indicator of improved safety with functional mobility. Patient's Goals
--- NOTE | 2018-07-18 16:22 | NUR ---
Occupational Therapy Impression Mod (I) bed mobility with bed rail and HOB flat. SBA ambulation with 4WW. Occasional v/c's for safety when using 4WW for seated rest breaks. SBA toileting. Dynamic balance crossing midline and reaching high/low to retrieve items places in obstacle course. Completed task with SBA and no loss of balance. Pt nearing OT goals. Plan for discharge to daughter's home this weekend with HH and private caregiver assist when daughter is at work. Occupational Therapy Goals 1. Pt. to perform showering activities with Mod A. Progressing towards 2. Pt. to perform toileting activities with Min A. Progressing towards 3. Pt. to perform grooming activities with Min A. Goal met. Pt. to perform grooming activities with CGA standing. New goal. 4. Pt. to increase Mica Index of ADL score by 2 points. Goal Met. 5. Pt. to perform dressing activities with Mod A. Progressing towards Patient's Goal
[2018-07-18 17:10] VITALS: BP_SYST 108; BP_SYST 118; BP_DIAS 78
[2018-07-18] MEDS: TAMSULOSIN HCL 0.4 MG CAP PO SCH (21:00)
[2018-07-19] MEDS: LEVOTHYROXINE SOD 0.088 MG TAB PO SCH (05:17)
[2018-07-19 05:35] LABS: INR 2.68
[2018-07-19] MEDS: ALBUTEROL/IPRATROPIUM 3 ML NEB NEB SCH ×3 (05:51→18:25)
[2018-07-19 08:05] VITALS: BP 127/77
[2018-07-19] MEDS: FOLIC ACID 1 MG TAB PO SCH (08:50)
--- NOTE | 2018-07-19 10:34 | NUR ---
DC MDS completed with pt. C: 14, D: 02, E: no concerns, Q: referral made for HHS and daughter arranging [facility], pt planning to DC to community to reside with her daughter in [place]. No other needs reported.
[2018-07-19] MEDS ORDERED: WARFARIN SOD 1 MG TAB PO SCH (13:00)
--- NOTE | 2018-07-19 14:58 | NUR ---
Physical Therapy Impression Pt plans to DC home to her daughters with 24 hour care and home health PT. Pt aware of limitations and reports she will have assistance. Physical Therapy Goals 1. SBA bed mobility. 2. SBA transfers. 3. SBA gait x 150' with appropriate assistive device. 4. Ascend/descend 2 stairs CGA. 5. Improve TUG to less than/equal to 29 seconds as indicator of improved safety with functional mobility. Patient's Goals
[2018-07-19 15:25] VITALS: BP 99/61
--- NOTE | 2018-07-19 16:28 | NUR ---
ST Encounter Provided pt with packet of external memory tools for d/c environment. Reviewed compensatory strategies. Majority of goals have been met. Pt cont with moderate deficits in short-term memory with reduced capacity for new learning. Will benefit from dtr's support for management of medications, appointments, finances, and scheduling. Pt benefits from external>internal strategies to support memory deficits. RN reporting good tolerance of current diet with no coughing at most recent meal. Provided pt with written copy of compensatory swallow strategies to take at discharge. Pt tolerated PO trials of thin liquids on this date with no difficulty, no cues required for appropriate bolus sizes and rate of intake. Dysphagia goals have been met and d/c'ed. 1. Diet: mechanically altered diet, thin liquids. 2. Medications: Whole, ok with thin liquids, one at a time. 3. Compensatory Techniques: regular oral hygiene, upright positioning during PO intake, cues to consume small bites/sips, one bite/sip at a time, take rest breaks for respiration, no straws. 4. Intermittent supervision with meals
[2018-07-19] MEDS ORDERED: NS 0.9% IV SCH (18:00)
[2018-07-19] MEDS ORDERED: DAPTOMYCIN IV SCH (18:00)
[2018-07-19] MEDS: TAMSULOSIN HCL 0.4 MG CAP PO SCH (21:00)
[2018-07-20] MEDS: ALBUTEROL/IPRATROPIUM 3 ML NEB NEB SCH ×3 (06:00→20:04)
[2018-07-20] MEDS: LEVOTHYROXINE SOD 0.088 MG TAB PO SCH (06:02)
[2018-07-20 07:00] LABS: INR 2.72
[2018-07-20 08:34] VITALS: BP 102/60
[2018-07-20] MEDS: FOLIC ACID 1 MG TAB PO SCH (09:06)
[2018-07-20] MEDS: WARFARIN SOD 2 MG TAB PO SCH (13:25)
[2018-07-20 15:45] VITALS: BP 116/59
[2018-07-20] MEDS: NYSTATIN 100,000 U/GM PWD 15GM TP PRN (18:22)
[2018-07-20] MEDS: TAMSULOSIN HCL 0.4 MG CAP PO SCH (21:23)
[2018-07-21] MEDS: ALBUTEROL/IPRATROPIUM 3 ML NEB NEB SCH ×2 (06:00→11:07)
[2018-07-21 06:09] LABS: INR 2.54
[2018-07-21] MEDS: LEVOTHYROXINE SOD 0.088 MG TAB PO SCH (06:17)
[2018-07-21 07:37] VITALS: BP 97/62
[2018-07-21] MEDS: NYSTATIN 100,000 U/GM PWD 15GM TP PRN (09:17)
[2018-07-21] MEDS: FOLIC ACID 1 MG TAB PO SCH (09:17)
[2018-07-21] MEDS: WARFARIN SOD 2 MG TAB PO SCH (12:40)
--- NOTE | 2018-07-23 08:47 | OT ECF NOTE ---
Type of Note: Discharge Note Primary Medical Diagnosis: Pneumonia Occupational Therapy Evaluation Date: 06-25-18 SUBJECTIVE: Prior Hospitalization: 05/29/19 admitted to [facility] Medical unit for acute renal failure. Pt. has had 2 stays on [facility] medical unit (06-07-18 till 09-27) and (06-19-18 till 06-25-18), following being dx with aspiration pneumonia. Pt. is being admitted to [facility] from the [facility] medical unit for continued rehab. Prior Level of Function: Pt. was living alone prior to d/c admission. Prior Living Status: Pt. was residing in [facility]. Community Services: Home Accessibility: 15 stairs to access daughters apartment. Equipment Owned: [facility] Medical Complications/Past Medical History: Please refer to chart for details. Psychosocial Support: Supportive daughter in [facility] [place] Pain Scale (0-10): No pain stated upon evaluation. OBJECTIVE: Strength: MMT: Right Left Shoulder Flexion [*] [*] Elbow Flexion [*] [*] Wrist Extension [*] [*] Print Production Associate [*] [*] (5= normal, 4= good, 3= fair, 2= poor, 1= trace) ROM: severely limited in BUE's. Functional Transfer: Assistive Device: 4WW Transfer Ability: SBA ADL: Upper body dressing: Assistive device: None Upper body dressing ability: Set-up Lower body dressing: Assistive device: Casting And Curing Operator, Sock aid, Long-handled shoe horn, Dressing stick Lower body dressing ability: Minimum assistance Toileting: Assistive device: Grab bars Toileting ability: SBA Grooming/hygiene: Standing Assistive device: None Grooming ability: SBA Bathing: Assistive device: Shower chair Bathing ability: SBA transfer. Min A bathing. Standardized Assessment: Mica Index of Activities of Daily Living- Pt. scored 8/20 on this Index upon admission to [facility]. 11/20 upon 2-week progress note (07/09/18). 15/20 upon discharge (07/23/18). ASSESSMENT: Pt. is a 82 year old female who has been readmitted to [facility] for continued rehab following another stay on [facility] medical unit after being treated for pneumonia. Pt has met all skilled OT goals and reports no further questions/concerns for OT with regards to discharge plan. Problem List/Current Limitations: Short Term Goals: 1. Pt. to perform showering activities with Mod A. Goal met. 2. Pt. to perform toileting activities with Min A. Goal met. 3. Pt. to perform grooming activities with Min A. Goal met. Pt. to perform grooming activities with CGA standing. Goal met. 4. Pt. to increase Mica Index of ADL score by 2 points. Goal met. 5. Pt. to perform dressing activities with Mod A. Goal met. Penitentiary Goals: Rec 24/ supervision upon discharge home due to varied levels of assist required for functional mobility and decreased problem solving/safety awareness with ADLs/IADLs. Patient Goals: d/c to daughters apartment Rehabilitation Prognosis: Fair Barriers to Discharge: cognitive decline PLAN: The patient will discharge to daughter's home in [place], [place]. Services to include HomeHealth and private caregiver assist when daughter is at work. Thank you for this referral. If you have any questions, concerns, or comments about this report or plan, please contact me at . Dominga Crawford MS, OTR/L Occupational Therapist [facility]
--- NOTE | 2018-07-25 08:27 | PT ECF NOTE ---
Type of Note: Discharge Summary Primary Medical Diagnosis: Pneumonia Physical Therapy Evaluation Date: 06-25-18 SUBJECTIVE: Prior Hospitalization: 05/29/19 admitted to [facility] Medical unit for acute renal failure. Pt. has had 2 stays on [facility] medical unit (06-07-18 till 09-27) and (06-19-18 till 06-25-18), following being dx with aspiration pneumonia. Pt. is admitted to [facility] from the [facility] medical unit for continued rehab. Prior Level of Function: Pt. was living alone prior to this admission. Prior Living Status: Pt. was residing in [place], [employer] [facility]. Community Services: Pt's daughter indicates that pt will be moving to [place] to reside with her Home Accessibility: 15 stairs to access daughters apartment. Equipment Owned: [facility] Medical Complications/Past Medical History: Please refer to chart for details; RA, DM, wound at L) foot, aspiration pneumonia Psychosocial Support: Supportive daughter in [place], [place] Pain Scale (0-10): No pain stated OBJECTIVE: Strength: MMT reveals WNL, however, generalized weakness exhibited with early fatigue during ADL's and increased work of breathing. ROM: (please note any abnormalities) Some limitations due to RA, but hips and knees WFL overall. Sensation: (please note any abnormalities) some numbness in feet related to diabetic neuropathy. Other Neuro findings: n/a Bed Mobility: min-modA Transfers: SBA with 4WW Gait: SBA x 200' with 4WW Stairs: 8 stairs with CGA Timed Up and Go (>12 seconds indicated increased risk for falls): 40 seconds at evaluation 10 meter walk test (0.6m/second cannot function independently): n/a Other Objective Measures: n/a ASSESSMENT: The patient discharged to her daughter's home in [place]. She will have 24 hr care, including [facility] during the daytime and [facility] services. She demonstrated increased independence with functional mobility after PT intervention but will benefit from 24 hr d/t safety concerns and cognition. Rec continued wound care. Short Term Goals: 1. SBA bed mobility. 2. SBA sit to/from stand transfers from a variety of surfaces. 3. SBA gait x 150' with appropriate assistive device. 4. Ascend/descend 2 stairs CGA. 5. Improve TUG to less than/equal to 29 seconds as indicator of improved safety with functional mobility. [facility] Goals: Transition to local SNF for further rehab closer to daughter's home Patient Goals: Return to least restrictive environment when able Rehabilitation Prognosis: Good PLAN: The patient discharged to her daughter's home with 24 hr care including [facility] and [facility] services. Thank you for this referral. If you have any questions, concerns, or comments about this report or plan, please contact me at . Tete Blair, PT, DPT [facility]
== END 2018-07-21 14:00 | disposition home health service (06) | DRG 178 ==
LOC: ECF 10:15
PROVIDERS: ADMIT Family Medicine; ATTEND Family Medicine
DX: J69.0 Pneumonitis due to inhalation of food and vomit (principal); E46 Unspecified protein-calorie malnutrition; I48.2 Chronic atrial fibrillation; E11.9 Type 2 diabetes mellitus without complications; T46.0X5A Adverse effect of cardiac-stimulant glycosides and drugs of similar action, initial encounter; R13.10 Dysphagia, unspecified; I50.9 Heart failure, unspecified; R42 Dizziness and giddiness; S91.302A Unspecified open wound, left foot, initial encounter; I05.9 Rheumatic mitral valve disease, unspecified; E03.9 Hypothyroidism, unspecified; R53.1 Weakness; M06.9 Rheumatoid arthritis, unspecified; D50.9 Iron deficiency anemia, unspecified; B95.62 Methicillin resistant Staphylococcus aureus infection as the cause of diseases classified elsewhere; T36.8X5A Adverse effect of other systemic antibiotics, initial encounter; I27.20 Pulmonary hypertension, unspecified; Z68.25 Body mass index [BMI] 25.0-25.9, adult; Z79.01 Long term (current) use of anticoagulants; Z79.84 Long term (current) use of oral hypoglycemic drugs; Z88.0 Allergy status to penicillin; Z88.2 Allergy status to sulfonamides; Z91.040 Latex allergy status; Z91.81 History of falling
CPT/HCPCS: 36415; 71045; 82040; 82247; 82310; 82374; 82435; 82565; 82947; 84075; 84132; 84134; 84155; 84295; 84450; 84460; 84520; 85014; 85018; 85025; 85610; 86140; 92523; 93306; 94640; 94668; 97161; 97165; J0878; J7030; J7040; J7050